=== PATIENT | female | born 1960 | race Caucasian/White ===

== ENCOUNTER 2016-12-26 09:01 | Inpatient (IN) | payer BC ==
[2016-12-26] MEDS ORDERED: methylPREDNISolone Sodium Succinate 125 MG/2 ML SDV IVPUSH ONE (09:41)
[2016-12-26] MEDS: Albuterol 0.083% 2.5 MG/3 ML Neb Soln NEB SCH ×5 (11:04→20:30)
--- NOTE | 2016-12-26 13:00 | PCM.HP ---
H&P History of Present Illness - General Date of Service: 12/26/16 Admit Problem/Dx: Admission Diagnosis/Problem Admission Diagnosis/Problem Dyspnea on exertion Source of Information: Patient History Limitations: Reports: No limitations - History of Present Illness Initial Comments - Free Text/Narative: Mrs. Metzger is a 56 yo female with history as below who presented to clinic for further evaluation of progressive worsening of cough and shortness of breath. She has been seen in clinic multiple times over the past 2 weeks for these symptoms. First, she was diagnosed with a viral illness and symptomatic cares were recommended. She was also given a prednisone burst. Given persistent symptoms for 10-14 days, she was started on Augmentin for sinusitis. However, her cough continued to progress and her shortness of breath also worsened. She was then transitioned to azithromycin and started on scheduled albuterol inhaler treatments. Despite this, she has continued to worsen. She has not had any fever or chills. Her sinus congestion had been improving but is worse again. 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 0 Pain Score (Numeric/FACES): 0 - Related Data Allergies/Adverse Reactions: Allergies Allergy/AdvReac Type Severity Reaction Status Date / Time aspirin Allergy Bronchospas Verified 08/17/14 11:22 ms acetaminophen AdvReac Hypotension Verified 08/17/14 11:22 [From Darvocet-N] meperidine HCl [From Demerol] AdvReac Hypotension Verified 08/17/14 11:22 propoxyphene napsylate AdvReac Hypotension Verified 08/17/14 11:22 [From Darvocet-N] Home Medications: Home Meds Albuterol [Proventil HFA] 2 puff IH Q4HR PRN 12/26/16 [History] Amitriptyline [Elavil] 100 - 150 mg PO BEDTIME PRN 12/26/16 [History] Aspirin [Halfprin] 81 mg PO DAILY 12/26/16 [History] Azithromycin [Zithromax] 500 mg PO ASDIRECTED 12/26/16 [History] Folic Acid 1 mg PO DAILY 12/26/16 [History] Gabapentin [Gabapentin] 100 mg PO QID 12/26/16 [History] Ibuprofen 400 - 800 mg PO Q6HR PRN 12/26/16 [History] LORazepam 0.5 mg PO DAILY PRN 12/26/16 [History] Lisinopril [Zestril] 40 mg PO DAILY 12/26/16 [History] Methotrexate Sodium [Methotrexate] 25 mg PO WEEKLY 12/26/16 [History] Metoprolol Succinate [Toprol XL] 25 mg PO DAILY 12/26/16 [History] Multivitamin [Multi-Vitamin Daily] 1 tab PO DAILY 12/26/16 [History] Omeprazole [Omeprazole] 40 mg PO BIDMEALS 12/26/16 [History] Pramipexole [Mirapex] 1 mg PO BEDTIME 12/26/16 [History] Prednisone [IJD: Prednisone] 10 mg PO DAILY 12/26/16 [History] Venlafaxine [Effexor XR] 150 mg PO DAILY 12/26/16 [History] atorvaSTATin [Lipitor] 10 mg PO BEDTIME 12/26/16 [History] Past Medical History HEENT History: Reports: Hard of hearing Other HEENT History: wears bilateral hearing aids Cardiovascular History: Reports: Pulmonary hypertension Other Cardiovascular History: coarctation of aorta,acute ischemic stroke Respiratory History: Reports: COPD, Sleep apnea, Other (see below) (pulmonary hypertension) Other Respiratory History: allergic rhinitis, Gastrointestinal History: Reports: Irritable bowel syndrome Genitourinary History: Reports: None Other OB/BYN History: post menopausal Musculoskeletal History: Reports: Arthritis, RA Neurological History: Reports: Migraines Other Neuro History: restless leg syndrome, Psychiatric History: Reports: Anxiety, Depression Endocrine/Metabolic History: Reports: None Hematologic History: Reports: None Immunologic History: Reports: None Oncologic (Cancer) History: Reports: None Dermatologic History: Reports: None - Infectious Disease History Infectious Disease History: Reports: None - Past Surgical History HEENT Surgical History: Reports: Other (see below) (tympanostomy) Cardiovascular Surgical History: Reports: Other (see below) (repair of coarctation of the aorta) GI Surgical History: Reports: Appendectomy, Cholecystectomy Female Surgical History: Reports: Hysterectomy Musculoskeletal Surgical History: Reports: Carpal tunnel, Other (see below) Other Musculoskeletal Surgeries/Procedures:: bunionectomy Social & Family History - Family History Cardiac: Reports: CAD Musculoskeletal: Reports: Arthritis Neurological: Reports: Dementia Oncologic: Reports: Breast, Colon - Tobacco Use Smoking Status *Q: Former Smoker - Alcohol Use Alcohol Use History: No Days Per Week of Alcohol Use: 3 Number of Drinks Per Day: 3 Total Drinks Per Week: 9 Alcohol Use in Last Twelve Months: No - Recreational Drug Use Recreational Drug Use: No - Living Situation & Occupation Living situation: Reports: , with significant other 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[employer]) H&P Review of Systems - Review of Systems: Review Of Systems: See Below General: Reports: no symptoms HEENT: Reports: rhinitis, sinus congestion Pulmonary: Reports: Shortness of Breath, Wheezing, Cough Cardiovascular: Reports: no symptoms Gastrointestinal: Reports: No symptoms Genitourinary: Reports: no symptoms Musculoskeletal: Reports: no symptoms Skin: Reports: no symptoms Psychiatric: Reports: no symptoms Exam - Exam Exam: See Below - Vital Signs Vital Signs: Last Vital Signs Temp 37.2 C 12/26/16 09:59 Pulse 69 12/26/16 09:59 Resp 18 12/26/16 09:59 BP 108/68 12/26/16 09:59 Pulse Ox 92 L 12/26/16 09:59 Weight: 71.214 kg - Exam General: alert, cooperative. No: mild distress, moderate distress, severe distress HEENT: Mucosa moist & pink, Posterior pharynx clear, Pupils equal, Pupils reactive, TMs clear Neck: supple, trachea midline. No: lymphadenopathy, thyromegaly Lungs: Wheezing Cardiovascular: regular rate, regular rhythm, normal S1, normal S2 Abdomen: normal bowel sounds, soft. No: organomegaly, distention, tenderness Extremities: normal inspection, normal pulses. No: edema Skin: warm, dry, intact Neurological: cranial nerves intact. No: focal deficit *Q Meaningful Use (ADM) - VTE *Q VTE Criteria *Q: VTE Anticoagulation Contraindications: Med/tx not indicated/need - Stroke *Q Stroke Criteria *Q: - AMI *Q AMI Criteria *Q: - Problem List (1) COPD exacerbation SNOMED Code(s): 663099362, 486875362 ICD Code: J44.1 - CHRONIC OBSTRUCTIVE PULMONARY DISEASE W (ACUTE) EXACERBATION Status: Acute Current Visit: Yes Problem Details: - Symptoms overall are still most consistent with this. - Suspect she had a viral illness vs. atypical pneumonia as the etiology. Possibly did have influenza but I will not test her for this as we would not treat her at this point. Her Well's score is 0, making PE quite unlikely, especially given her symptoms and lung exam. She has no evidence of CHF by x- ray or by physical exam. Her Hgb is normal. - Will treat with albuterol nebs q2 hours. - She will also get a dose of solu-medrol today and then be treated with prednisone 40 mg daily starting tomorrow. - If her symptoms are not improving with this treatment, we will consider getting a d-dimer. - Given her WBC and ESR are normal, I would not change her antibiotics at this point. - Oxygen PRN. (2) Atypical pneumonia SNOMED Code(s): 491078888 ICD Code: J18.9 - PNEUMONIA, UNSPECIFIED ORGANISM Status: Acute Current Visit: Yes Problem Details: - See above. - Continue azithromycin. (3) Hypertension SNOMED Code(s): 71631786 ICD Code: I10 - ESSENTIAL (PRIMARY) HYPERTENSION Status: Chronic Current Visit: Yes Problem Details: - Continue ASA, lisinopril, and metoprolol. Qualifiers: Hypertension type: essential hypertension Qualified Code(s): I10 - Essential (primary) hypertension (4) Rheumatoid arthritis SNOMED Code(s): 49116144 ICD Code: M06.9 - RHEUMATOID ARTHRITIS, UNSPECIFIED Status: Chronic Current Visit: Yes Problem Details: - Continue methotrexate, gabapentin, and PRN ibuprofen. - Will hold home prednisone as she will be getting higher doses as above. Qualifiers: Rheumatoid arthritis location: unspecified site Rheumatoid factor presence : without rheumatoid factor Qualified Code(s): M06.00 - Rheumatoid arthritis without rheumatoid factor, unspecified site (5) Anxiety SNOMED Code(s): 74232972 ICD Code: F41.9 - ANXIETY DISORDER, UNSPECIFIED Status: Chronic Current Visit: Yes Problem Details: - Continue lorazepam and effexor. (6) Insomnia SNOMED Code(s): 440152157 ICD Code: G47.00 - INSOMNIA, UNSPECIFIED Status: Chronic Current Visit: Yes Problem Details: - Continue lorazepam and amitriptyline. Qualifiers: Insomnia type: unspecified Qualified Code(s): G47.00 - Insomnia, unspecified (7) GERD (gastroesophageal reflux disease) SNOMED Code(s): 706438200 ICD Code: K21.9 - GASTRO-ESOPHAGEAL REFLUX DISEASE WITHOUT ESOPHAGITIS Status: Chronic Current Visit: Yes Problem Details: - Continue BID omeprazole. Qualifiers: Esophagitis presence: without esophagitis Qualified Code(s): K21.9 - Gastro -esophageal reflux disease without esophagitis (8) Restless leg syndrome SNOMED Code(s): 22274151 ICD Code: G25.81 - RESTLESS LEGS SYNDROME Status: Chronic Current Visit: Yes Problem Details: - Continue home medications. (9) Hyperlipidemia SNOMED Code(s): 80594100 ICD Code: E78.5 - HYPERLIPIDEMIA, UNSPECIFIED Status: Chronic Current Visit: Yes Problem Details: - Continue lipitor. Qualifiers: Hyperlipidemia type: unspecified Qualified Code(s): E78.5 - Hyperlipidemia , unspecified Problem List Initiated/Reviewed/Updated: Yes Orders Last 24hrs: Active Orders 24 hr Category Date Time Status Patient Status [ADT] Routine ADT 12/26/16 09:39 Active Notify Provider Vital Signs [RC] ASDIRECTED Care 12/26/16 12:44 Ordered Oxygen Therapy [RC] PRN Care 12/26/16 12:43 Ordered RT Aerosol Therapy [RC] 07 Care 12/26/16 09:41 Active Up ad [place] [RC] ASDIRECTED Care 12/26/16 12:42 Ordered VTE/DVT Education [RC] PER UNIT ROUTINE Care 12/26/16 12:43 Ordered Vital Signs [RC] Q4H Care 12/26/16 12:43 Ordered Regular Diet [DIET] Diet 12/26/16 Dinner Active Albuterol [Proventil Neb Soln] Med 12/26/16 10:00 Active 2.5 mg NEB Q2H Amitriptyline [Elavil] Med 12/26/16 20:00 Ordered 150 mg PO BEDTIME Aspirin [Halfprin] Med 12/27/16 08:00 Ordered 81 mg PO DAILY Azithromycin [Zithromax] Med 12/27/16 08:00 Ordered 250 mg PO DAILY Folic Acid Med 12/27/16 08:00 Ordered 1 mg PO DAILY Gabapentin [Neurontin] Med 12/26/16 16:00 Ordered 100 mg PO QID Ibuprofen [Motrin] Med 12/26/16 12:45 Ordered 400 mg PO Q6HR PRN LORazepam [Ativan] Med 12/26/16 20:00 Ordered 0.25 mg PO BEDTIME Lisinopril [Zestril] Med 12/27/16 08:00 Ordered 40 mg PO DAILY Methotrexate Med 12/26/16 12:45 Ordered 25 mg PO WEEKLY Metoprolol Succinate [Toprol XL] Med 12/27/16 08:00 Ordered 25 mg PO DAILY Multivitamin [Multi-Vitamin Daily] Med 12/27/16 08:00 Ordered 1 tab PO DAILY Omeprazole [Omeprazole] Med 12/26/16 18:00 Ordered 40 mg PO BIDMEALS Pramipexole [Mirapex] Med 12/26/16 20:00 Ordered 1 mg PO BEDTIME Venlafaxine [Effexor XR] Med 12/27/16 08:00 Ordered 150 mg PO DAILY atorvaSTATin [Lipitor] Med 12/26/16 20:00 Ordered 10 mg PO BEDTIME predniSONE Med 12/27/16 08:00 Ordered 40 mg PO WITHBREAKFAST Anticoagulation Contraindications VTE [AST] Per Unit Oth 12/26/16 12:42 Ordered Routine Resuscitation Status Routine Resus Stat 12/26/16 12:42 Ordered Medication Orders Albuterol (Proventil Neb Soln) 2.5 mg NEB Q2H [facility] Last Admin: 12/26/16 12:11 Dose: 2.5 mg Admin: 12/26/16 11:04 Dose: Not Given Amitriptyline HCl (Elavil) 150 mg PO BEDTIME [facility] Aspirin (Halfprin) 81 mg PO DAILY [facility] Atorvastatin Calcium (Lipitor) 10 mg PO BEDTIME [facility] Azithromycin (Zithromax) 250 mg PO DAILY [facility] Folic Acid (Folic Acid) 1 mg PO DAILY [facility] Gabapentin (Neurontin) 100 mg PO QID [facility] Ibuprofen (Motrin) 400 mg PO Q6HR PRN PRN Reason: Pain Lorazepam (Ativan) 0.25 mg PO BEDTIME [facility] Methotrexate (Methotrexate) 25 mg PO WEEKLY [facility] Metoprolol Succinate (Toprol Xl) 25 mg PO DAILY [facility] Non-Formulary Medication (Lisinopril [Zestril]) 40 mg PO DAILY [facility] Non-Formulary Medication (Multivitamin [Multi-Vitamin Daily]) 1 tab PO DAILY [facility] Non-Formulary Medication (Omeprazole [Omeprazole]) 40 mg PO BIDMEALS [facility] Non-Formulary Medication (Pramipexole [Mirapex]) 1 mg PO BEDTIME [facility] Prednisone (Prednisone) 40 mg PO WITHBREAKFAST CHRIS Venlafaxine HCl (Effexor Xr) 150 mg PO DAILY CHRIS Assessment/Plan Comment:: 56 yo female admitted with COPD exacerbation and atypical pneumonia refractory to outpatient management. See details under problem list above. She will be admitted under observation as I anticipate a short hospital stay. She will get steroids and frequent neb treatments. Continue azithromycin. Lovenox for VTE prophylaxis. She wishes to be full code.
[2016-12-26] MEDS: Omeprazole 20 MG Cap.CR PO SCH (15:59)
[2016-12-26] MEDS ORDERED: Gabapentin 100 MG Cap PO SCH (16:00)
[2016-12-26] MEDS: Sodium Chloride 0.9% 10 ML Syringe FLUSH SCH (20:27)
[2016-12-26] MEDS: atorvaSTATin 10 MG Tab PO SCH (20:30)
[2016-12-26] MEDS: Pramipexole 0.5 MG Tab PO SCH (20:30)
[2016-12-26] MEDS: LORazepam 0.5 MG Tab PO SCH (20:31)
[2016-12-26] MEDS: Gabapentin 400 MG Cap PO SCH (20:34)
[2016-12-26] MEDS: Amitriptyline 25 MG Tab PO SCH (22:51)
[2016-12-27] MEDS: Albuterol 0.083% 2.5 MG/3 ML Neb Soln NEB SCH ×6 (00:30→20:10)
[2016-12-27] MEDS: Ibuprofen 200 MG Tab PO PRN ×2 (05:19→14:13)
[2016-12-27] MEDS: Omeprazole 20 MG Cap.CR PO SCH ×2 (06:08→17:20)
[2016-12-27] MEDS ORDERED: Venlafaxine 150 MG Cap.ER PO SCH (08:00)
[2016-12-27] MEDS ORDERED: predniSONE 20 MG Tab PO SCH (08:00)
[2016-12-27] MEDS ORDERED: Lisinopril 20 MG Tab PO SCH (08:00)
[2016-12-27] MEDS: Sodium Chloride 0.9% 10 ML Syringe FLUSH SCH ×3 (08:00→20:29)
[2016-12-27] MEDS: Azithromycin 250 MG Tab PO SCH (08:14)
[2016-12-27] MEDS: Multivitamins with Iron/Calcium/Folic Acid/Minerals Tab PO SCH (08:14)
[2016-12-27] MEDS: Folic Acid 1 MG Tab PO SCH (08:15)
[2016-12-27] MEDS: Metoprolol Succinate 25 MG Tab.ER PO SCH (08:15)
[2016-12-27] MEDS: Aspirin 81 MG Tab.EC PO SCH (08:15)
[2016-12-27] MEDS: LORazepam 0.5 MG Tab PO PRN (10:55)
[2016-12-27 11:09] LABS: CHLORIDE,CL 98 mmol/L (98-107); SODIUM,NA 136 mmol/L (136-145)
--- NOTE | 2016-12-27 12:56 | PN ---
Progress Note for OPHELIA GIBSON Date: 12/27/2016 Room #: VM.204 SUBJECTIVE: This is hospital day #2 on a 56-year-old admitted through the clinic yesterday for bronchitis exacerbation with concern for possible COPD, given history of smoking. She had been in the clinic several times, been treated with Augmentin for sinusitis and treated with prednisone and albuterol inhalers, and her condition continued to worsen. She was given Solu-Medrol yesterday and 40 mg of prednisone this morning and normally she takes 10 at night for rheumatoid arthritis. She became quite anxious. She has a history of anxiety, but never a panic attack like this. She even had some chest discomfort that lasted about 30 to 45 minutes and was having a harder time breathing, by the time I saw her, it had resolved. She has no history of coronary artery disease, but had surgery for coarctation of the aorta 3 times including 2 in infancy. Otherwise, she feels the nebulizers do help. She has been afebrile. She has been on Zithromax. OBJECTIVE: Vital Signs: Her temperature 98.5, pulse 75, blood pressure 123/81, respiratory rate 18, and O2 of 99% on room air. General: She is in no acute distress. Heart: Regular rate and rhythm. S1, S2 with murmur. Respiratory: Lung sounds show good air entry, but both inspiratory and expiratory wheezing are still noted. Extremities: Warm and dry. No edema. Mental Status: She is alert and orientated x3. It should be noted that she did not wear her CPAP last night. She fell asleep without it. ASSESSMENT: 1. Probable chronic obstructive pulmonary disease exacerbation with atypical pneumonia. The patient will continue Zithromax. She will continue q.i.d. and p.r.n. nebs. 2. Essential hypertension. She will continue home medications for that. 3. Rheumatoid arthritis. She will continue home medications. Medications were all given this morning. We will adjust doses as she usually get that at nighttime. If she goes home today, we will give her further instructions, otherwise anticipate she may need another night of observation. 4. Anxiety. We will order p.r.n. Ativan during the day. She only had it ordered at night. 5. Gastroesophageal reflux disease seems to be under fair control. PLAN: The patient will continue observation cares. We will do q.i.d. and p.r.n. nebs. We will continue prednisone 40 mg daily, but will switch it to nighttime dosing. We will continue azithromycin. Anticipate discharge home in the next 24 hours with a nebulizer machine and follow up outpatient with her PCP. I should note that, I did lab work this morning after episode. Her white count mildly elevated at 13.2, probably due to the steroids, hemoglobin 13.2, platelets 260. Kidney function normal. Her troponin was negative. Blood sugar 155, probably some hyperglycemia from steroids. MKA: 12/27/2016 11:34:39 MODL: 12/27/2016 12:49:21 /[id number]
[2016-12-27] MEDS: LORazepam 0.5 MG Tab PO SCH (20:10)
[2016-12-27] MEDS: Gabapentin 400 MG Cap PO SCH (20:11)
[2016-12-27] MEDS: Amitriptyline 25 MG Tab PO SCH (20:11)
[2016-12-27] MEDS: Venlafaxine 150 MG Cap.ER PO SCH (20:11)
[2016-12-27] MEDS: atorvaSTATin 10 MG Tab PO SCH (20:12)
[2016-12-27] MEDS: Pramipexole 0.5 MG Tab PO SCH (20:13)
[2016-12-28] MEDS: Albuterol 0.083% 2.5 MG/3 ML Neb Soln NEB SCH ×7 (00:14→19:21)
[2016-12-28] MEDS: Omeprazole 20 MG Cap.CR PO SCH ×2 (06:16→16:12)
[2016-12-28] MEDS: Albuterol 0.083% 2.5 MG/3 ML Neb Soln NEB PRN (06:20)
[2016-12-28] MEDS: Folic Acid 1 MG Tab PO SCH (07:49)
[2016-12-28] MEDS: Azithromycin 250 MG Tab PO SCH (07:49)
[2016-12-28] MEDS: Ibuprofen 200 MG Tab PO PRN ×2 (07:50→19:39)
[2016-12-28] MEDS: Multivitamins with Iron/Calcium/Folic Acid/Minerals Tab PO SCH (07:51)
[2016-12-28] MEDS: Metoprolol Succinate 25 MG Tab.ER PO SCH (07:51)
[2016-12-28] MEDS: Aspirin 81 MG Tab.EC PO SCH (07:51)
[2016-12-28] MEDS: Sodium Chloride 0.9% 10 ML Syringe FLUSH SCH ×2 (07:52→19:39)
[2016-12-28] MEDS: LORazepam 0.5 MG Tab PO PRN (07:54)
[2016-12-28] MEDS ORDERED: methylPREDNISolone Sodium Succinate 40 MG/1 ML SDV IVPUSH ONE (09:01)
[2016-12-28 10:16] LABS: CHLORIDE,CL 101 mmol/L (98-107); SODIUM,NA 138 mmol/L (136-145)
--- NOTE | 2016-12-28 12:16 | PN ---
Progress Note for OPHELIA GIBSON Date: 12/28/2016 Room #: VM.204 SUBJECTIVE: This is a 56-year-old admitted on the for presumed COPD exacerbation given her history of smoking. The patient was on observation. She was doing better last evening. We are hopeful she could go home today, but this morning, ever since around 4:30, she has had some chest tightness. It lasted a good hour. She did get a neb, but she is still having trouble with cough and breathing. The patient is still quite wheezy. She did not take prednisone this morning, as she took it yesterday, and it caused almost a panic attack, so they did switch it to the evening when she takes all of her medication. She did not get all of her blood pressure pills last night, because she got them yesterday morning, and blood pressures had been running lower. She has been afebrile. Troponin was done and negative yesterday. EKG was done when she mentioned the chest tightness and does show some new T-wave inversion and mild depressions in the inferior and lateral leads, which is new compared to her EKG I reviewed from 2012. She does have a history of coarctation of the aorta. She had an angiogram back in 2014, but that was a thoracic angiogram. She has not had any cardiac angiogram. No recent history of any heart stressed testing, but did have one back in 2012. Otherwise, she is a former smoker, quit about 3 weeks ago. She does have hypertension and has been recently started on Toprol, which should be more cardioselective, but tells me her memory is short given a previous history of stroke. OBJECTIVE: Vital Signs: Her temperature is 98.4, pulse 73, blood pressure 137/48, respiratory rate 18, O2 of 97% on room air. General: She is in no acute distress. Heart: Regular rate and rhythm with murmur. Lungs: Sounds show diffuse inspiratory and expiratory wheezing. No crackles or rhonchi appreciated. Extremities: Warm and dry. No edema. Mental Status: Alert and orientated x3. She does not appear to be overly anxious. LABORATORY DATA: Lab work requested white count down to 11.5, hemoglobin 13.3, platelets 242. Sodium 138, potassium 3.9, chloride 101, bicarb 31, BUN 11, creatinine 1, glucose 145, troponin negative for a second time. Chest x-ray continues to show chronic changes on the left ribs, but no new pneumonia or infiltrates present. No pleural effusion. ASSESSMENT: 1. Probable chronic obstructive pulmonary disease exacerbation with an atypical pneumonia. She continues on Zithromax. I am going to give her a dose of Solu-Medrol 40 mg this morning. She can have her other 40 mg oral dose tonight and then continue on with that schedule of 40 at night. We will continue her on the q.i.d. nebs and p.r.n. as needed. We will continue azithromycin as repeat chest x-ray did not show any worsening. We will hold off on stopping Toprol now given her concern with EKG changes. 2. Chest tightness, probably due to respiratory, but again cannot rule out cardiac ischemia given smoking and hypertension history. At this point, we will place her on telemetry. We did not give her any nitro, but that could be a consideration. We would consider some outpatient heart workup and stress testing. She has had these symptoms now for 24 hours, and troponins remain negative. No need to repeat. 3. Rheumatoid arthritis. She is on prednisone at 10 mg, skilled nursing. 4. Anxiety. She has p.r.n. Ativan available now during the day. 5. Gastroesophageal reflux disease. 6. History of stroke. PLAN: The patient will be upgraded to acute care if she is not well enough to return home. She is on aspirin daily. She is also on Toprol. We will get her lisinopril ordered for tonight. We will continue her nebs. We will continue prednisone. We will give her a dose of Solu-Medrol this morning. Dr. Lawrence to assume care. MKA: 12/28/2016 11:44:43 MODL: 12/28/2016 12:09:27 /[id number]
[2016-12-28] MEDS ORDERED: Gabapentin 400 MG Cap PO SCH (16:00)
[2016-12-28] MEDS: Gabapentin 100 MG Cap PO SCH ×2 (16:12→19:40)
[2016-12-28] MEDS: atorvaSTATin 10 MG Tab PO SCH (19:40)
[2016-12-28] MEDS: Pramipexole 0.5 MG Tab PO SCH (19:40)
[2016-12-28] MEDS: Amitriptyline 25 MG Tab PO SCH (19:40)
[2016-12-28] MEDS: Venlafaxine 150 MG Cap.ER PO SCH (19:40)
[2016-12-28] MEDS: LORazepam 0.5 MG Tab PO SCH (19:40)
[2016-12-28] MEDS ORDERED: Lisinopril 20 MG Tab PO SCH (20:00)
[2016-12-28] MEDS ORDERED: predniSONE 20 MG Tab PO SCH (20:00)
[2016-12-29] MEDS: Albuterol 0.083% 2.5 MG/3 ML Neb Soln NEB SCH ×5 (00:06→14:59)
[2016-12-29] MEDS: Ibuprofen 200 MG Tab PO PRN ×2 (03:30→12:56)
[2016-12-29] MEDS: Omeprazole 20 MG Cap.CR PO SCH (06:45)
[2016-12-29] MEDS ORDERED: Enoxaparin 40 MG/0.4 ML Syringe SUBCUT SCH (08:00)
--- NOTE | 2016-12-29 08:13 | PCM.PN ---
- General Info Date of Service: 12/29/16 Subjective Update: Patient feels she is doing much better today. She did have a bit of a rough weekend but feels like she has turned the corner this morning. She is still coughing and wheezing but this is improved. Her breathing is improved and she has had no chest pain since yesterday morning. She never had any sharp chest pain but rather had some tightness that was evaluated by Dr. Ji. She denies any fever or chills. ROS otherwise negative as below. - Review of Systems General: Reports: No Symptoms HEENT: Reports: no symptoms Pulmonary: Reports: cough, wheezing Cardiovascular: Reports: No Symptoms Gastrointestinal: Reports: No symptoms Genitourinary: Reports: no symptoms Musculoskeletal: Reports: no symptoms Skin: Reports: no symptoms - Patient Data Vitals - most recent: Last Vital Signs Temp 36.7 C 12/29/16 05:59 Pulse 69 12/29/16 05:59 Resp 20 12/29/16 05:59 BP 121/77 12/29/16 05:59 Pulse Ox 97 12/29/16 07:24 Weight - most recent: 71.214 kg I&O - last 24 hours: Intake & Output 12/28/16 12/29/16 12/29/16 22:59 06:59 14:59 Intake Total 600 Output Total 400 Balance -400 600 Lab Results last 24 hrs: Laboratory Results - last 24 hr 12/28/16 12/28/16 12/29/16 Range/Units 09:35 09:35 06:22 WBC 11.5 H 11.0 H (4.0-10.0) x10^3/uL RBC 3.98 L 4.19 (4.00-5.50) x10^6/uL Hgb 13.3 13.7 (12.0-16.0) g/dL Hct 39.6 41.6 (33.0-47.0) % MCV 99.5 H 99.3 H (78.0-93.0) fL MCH 33.4 H 32.7 H (26.0-32.0) pg MCHC 33.6 32.9 (32.0-36.0) g/dL RDW Coeff of Tressa 15.3 H 15.1 H (10.0-15.0) % Plt Count 242 278 (130-400) x10^3/uL Add Manual Diff Yes Neutrophils % (Manual) 46 L (50-80) % Band Neutrophils % 5 (0-6) % Lymphocytes % (Manual) 44 (25-50) % Monocytes % (Manual) 2 (2-11) % Eosinophils % (Manual) 1 (0-4) % Metamyelocytes % 2 H (0) % Platelet Estimate Adequate Sodium 138 (136-145) mmol/L Potassium 3.9 (3.5-5.1) mmol/L Chloride 101 (98-107) mmol/L Carbon Dioxide 31 (21-32) mmol/L BUN 11 (7-18) mg/dL Creatinine 1.0 (0.55-1.02) mg/dL Est Cr Clr Drug Dosing 46.27 mL/min Estimated GFR (MDRD) 57 Glucose 145 H (74-106) mg/dL Calcium 8.8 (8.5-10.1) mg/dL Troponin I < 0.017 (<=0.056) ng/mL Med Orders - Current: Current Medications Albuterol (Proventil Neb Soln) 2.5 mg NEB Q2H PRN PRN Reason: Wheezing Last Admin: 12/28/16 06:20 Dose: 2.5 mg Albuterol (Proventil Neb Soln) 2.5 mg NEB Q4H [facility] Last Admin: 12/29/16 07:19 Dose: 2.5 mg Amitriptyline HCl (Elavil) 150 mg PO BEDTIME [facility] Last Admin: 12/28/16 19:40 Dose: 150 mg Aspirin (Halfprin) 81 mg PO DAILY [facility] Last Admin: 12/28/16 07:51 Dose: 81 mg Atorvastatin Calcium (Lipitor) 10 mg PO BEDTIME [facility] Last Admin: 12/28/16 19:40 Dose: 10 mg Azithromycin (Zithromax) 250 mg PO DAILY [facility] Last Admin: 12/28/16 07:49 Dose: 250 mg Enoxaparin Sodium (Lovenox) 40 mg SUBCUT DAILY [facility] Folic Acid (Folic Acid) 1 mg PO DAILY [facility] Last Admin: 12/28/16 07:49 Dose: 1 mg Gabapentin (Neurontin) 100 mg PO QID [facility] Last Admin: 12/28/16 19:40 Dose: 100 mg Ibuprofen (Motrin) 400 mg PO Q6HR PRN PRN Reason: Pain Last Admin: 12/29/16 03:30 Dose: 400 mg Lisinopril (Prinivil) 40 mg PO BEDTIME [facility] Last Admin: 12/28/16 20:03 Dose: 40 mg Lorazepam (Ativan) 0.25 mg PO BEDTIME [facility] Last Admin: 12/28/16 19:40 Dose: 0.25 mg Lorazepam (Ativan) 0.5 mg PO Q4H PRN PRN Reason: Anxiety Last Admin: 12/28/16 07:54 Dose: 0.5 mg Metoprolol Succinate (Toprol Xl) 25 mg PO DAILY [facility] Last Admin: 12/28/16 07:51 Dose: 25 mg Multivitamins/Minerals (Thera M Plus) 1 tab PO DAILY [facility] Last Admin: 12/28/16 07:51 Dose: 1 tab Omeprazole (Omeprazole) 40 mg PO BID@0700,1700 [facility] Last Admin: 12/29/16 06:45 Dose: 40 mg Pramipexole Dihydrochloride (Mirapex) 1 mg PO BEDTIME [facility] Last Admin: 12/28/16 19:40 Dose: 1 mg Prednisone (Prednisone) 40 mg PO QPM [facility] Last Admin: 12/28/16 20:03 Dose: 40 mg Sodium Chloride (Saline Flush) 10 ml FLUSH BID [facility] Last Admin: 12/28/16 19:39 Dose: 10 ml Venlafaxine HCl (Effexor Xr) 150 mg PO QPM [facility] Last Admin: 12/28/16 19:40 Dose: 150 mg Discontinued Medications Albuterol (Proventil Neb Soln) 2.5 mg NEB Q2H [facility] Last Admin: 12/26/16 14:12 Dose: 2.5 mg Gabapentin (Neurontin) 100 mg PO QID [facility] Last Admin: 12/26/16 14:59 Dose: 100 mg Gabapentin (Neurontin) 400 mg PO BEDTIME [facility] Last Admin: 12/27/16 20:11 Dose: 400 mg Lisinopril (Prinivil) 40 mg PO DAILY [facility] Last Admin: 12/27/16 08:14 Dose: 40 mg Methotrexate (Methotrexate) 25 mg PO Sa [facility] Methylprednisolone Sodium Succinate (Solu-Medrol) 125 mg IVPUSH ONETIME ONE Stop: 12/26/16 09:42 Last Admin: 12/26/16 11:06 Dose: 125 mg Methylprednisolone Sodium Succinate (Solu-Medrol) 40 mg IVPUSH ONETIME ONE Stop: 12/28/16 09:02 Last Admin: 12/28/16 10:11 Dose: 40 mg Prednisone (Prednisone) 40 mg PO WITHBREAKFAST [facility] Last Admin: 12/27/16 08:14 Dose: 40 mg Venlafaxine HCl (Effexor Xr) 150 mg PO DAILY [facility] - Exam General: alert, cooperative, no acute distress HEENT: Pupils equal, Pupils reactive, Mucous membr. moist/pink Neck: supple, no thyromegaly. No: lymphadenopathy Lungs: Normal respiratory effort, Wheezing, Other (good air movement this am) Cardiovascular: Regular Rate, Regular Rhythm, Murmurs (systolic murmur at the left upper sternal border radiating to the carotids) Abdomen: bowel sounds present, soft, no tenderness, no distension Extremities: no edema, normal pulses Skin: warm, dry, intact - Problem List & Annotations (1) COPD exacerbation SNOMED Code(s): 092583544, 842432844 Code(s): J44.1 - CHRONIC OBSTRUCTIVE PULMONARY DISEASE W (ACUTE) EXACERBATION Status: Acute Current Visit: Yes Annotation/Comment:: - Symptoms overall are still most consistent with this. - Suspect she had a viral illness vs. atypical pneumonia as the etiology. Possibly did have influenza but I did not test her for this as she was past the point where we would treat her. - She has no evidence of CHF by x-ray or by physical exam. However, her murmur is quite prominent today. I will get a BNP this morning just to be sure she does not have any CHF issues. - She is on albuterol nebs scheduled q4 hours, with q2 hours PRN. - She got a dose of solu-medrol on admission and again over the weekend. She is on a prednisone burst now and will likely need to be tapered off of this. - She will get her last dose of azithromycin today. - Oxygen PRN. (2) Atypical pneumonia SNOMED Code(s): 670579420 Code(s): J18.9 - PNEUMONIA, UNSPECIFIED ORGANISM Status: Acute Current Visit: Yes Annotation/Comment:: - See above. - Azithromycin course will be completed today. (3) Heart murmur SNOMED Code(s): 64704304 Code(s): R01.1 - CARDIAC MURMUR, UNSPECIFIED Status: Chronic Current Visit: Yes Annotation/Comment:: - Patient states this is chronic for her but does fluctuate in intensity explaining why I have not heard it previously when she was weezing more prominently. - Will get a BNP today to ensure no evidence of CHF from a valvular cause. - She had an Echo in 07/2016 with follow-up with cardiology at that time. No changes were recommended. If her BNP is normal and this remains to be a primarily lung issue, likely does not require follow-up with cardiology but may benefit from pulmonology consultation. (4) Hypertension SNOMED Code(s): 79357411 Code(s): I10 - ESSENTIAL (PRIMARY) HYPERTENSION Status: Chronic Current Visit: Yes Qualifiers: Hypertension type: essential hypertension Qualified Code(s): I10 - Essential (primary) hypertension Annotation/Comment:: - Continue ASA, lisinopril, and metoprolol. (5) Rheumatoid arthritis SNOMED Code(s): 24654307 Code(s): M06.9 - RHEUMATOID ARTHRITIS, UNSPECIFIED Status: Chronic Current Visit: Yes Qualifiers: Rheumatoid arthritis location: unspecified site Rheumatoid factor presence : without rheumatoid factor Qualified Code(s): M06.00 - Rheumatoid arthritis without rheumatoid factor, unspecified site Annotation/Comment:: - Continue gabapentin and PRN ibuprofen. - Methotrexate held per rheumatology. Will hold home prednisone as she will be getting higher doses as above. (6) Anxiety SNOMED Code(s): 61750504 Code(s): F41.9 - ANXIETY DISORDER, UNSPECIFIED Status: Chronic Current Visit: Yes Annotation/Comment:: - Continue lorazepam and effexor. (7) Insomnia SNOMED Code(s): 306858277 Code(s): G47.00 - INSOMNIA, UNSPECIFIED Status: Chronic Current Visit: Yes Qualifiers: Insomnia type: unspecified Qualified Code(s): G47.00 - Insomnia, unspecified Annotation/Comment:: - Continue lorazepam and amitriptyline. (8) GERD (gastroesophageal reflux disease) SNOMED Code(s): 327615764 Code(s): K21.9 - GASTRO-ESOPHAGEAL REFLUX DISEASE WITHOUT ESOPHAGITIS Status: Chronic Current Visit: Yes Qualifiers: Esophagitis presence: without esophagitis Qualified Code(s): K21.9 - Gastro -esophageal reflux disease without esophagitis Annotation/Comment:: - Continue BID omeprazole. (9) Restless leg syndrome SNOMED Code(s): 17997687 Code(s): G25.81 - RESTLESS LEGS SYNDROME Status: Chronic Current Visit: Yes Annotation/Comment:: - Continue home medications. (10) Hyperlipidemia SNOMED Code(s): 24629630 Code(s): E78.5 - HYPERLIPIDEMIA, UNSPECIFIED Status: Chronic Current Visit: Yes Qualifiers: Hyperlipidemia type: unspecified Qualified Code(s): E78.5 - Hyperlipidemia , unspecified Annotation/Comment:: - Continue lipitor. - Problem List Review Problem List Initiated/Reviewed/Updated: Yes - My Orders Last 24 Hours: My Active Orders 12/28/16 16:00 Gabapentin [Neurontin] 100 mg PO QID 12/28/16 20:00 predniSONE 40 mg PO QPM 12/29/16 08:00 Enoxaparin [Lovenox] 40 mg SUBCUT DAILY 12/29/16 08:05 Cardiac Monitoring Discontinue [RC] Click To Edit B-TYPE NATRIURETIC PEPTIDE,BNP [CHEM] Routine 01/01/17 07:00 CBC W/O DIFF,HEMOGRAM [HEME] Q3D 01/04/17 07:00 CBC W/O DIFF,HEMOGRAM [HEME] Q3D 01/07/17 07:00 CBC W/O DIFF,HEMOGRAM [HEME] Q3D 01/10/17 07:00 CBC W/O DIFF,HEMOGRAM [HEME] Q3D 01/13/17 07:00 CBC W/O DIFF,HEMOGRAM [HEME] Q3D 01/16/17 07:00 CBC W/O DIFF,HEMOGRAM [HEME] Q3D - Assessment Assessment:: 56 yo female admitted with a presumed COPD exacerbation. Did not improve much over the weekend but is doing better today. - Plan Plan:: See details under problem list above. She was transitioned to acute over the weekend due to experience of chest pain and lack of improvement in symptoms. She will remain on steroids and frequent neb treatments. Azithromycin course will be completed today. She had not been on medication based VTE prophylaxis given she was under observation and was anticipated to have a short hospital stay; now that she has been here longer, will go ahead and start Lovenox for VTE prophylaxis. She wishes to be full code. Since she is doing well this morning, she may be able to be dismissed this afternoon. We will monitor her today and I will check on her this afternoon to make the final decision.
[2016-12-29] MEDS: Metoprolol Succinate 25 MG Tab.ER PO SCH (08:15)
[2016-12-29] MEDS: Azithromycin 250 MG Tab PO SCH (08:15)
[2016-12-29] MEDS: Folic Acid 1 MG Tab PO SCH (08:16)
[2016-12-29] MEDS: Gabapentin 100 MG Cap PO SCH ×2 (08:16→12:15)
[2016-12-29] MEDS: Multivitamins with Iron/Calcium/Folic Acid/Minerals Tab PO SCH (08:16)
[2016-12-29] MEDS: Aspirin 81 MG Tab.EC PO SCH (08:16)
[2016-12-29] MEDS: Sodium Chloride 0.9% 10 ML Syringe FLUSH SCH (08:18)
[2016-12-29] MEDS: Albuterol 0.083% 2.5 MG/3 ML Neb Soln NEB PRN (13:05)
--- NOTE | 2016-12-29 13:47 | PCM.DCSUM1 ---
Discharge Summary - Hospital Course Brief History: Mrs. Metzger is a 56 yo female who presented to clinic for follow -up regarding cough, wheezing, and shortness of breath. She had been seen for multiple visits over the course of the preceding couple of weeks for similar symptoms. She had been trialed on a prednisone burst, antibiotics, and an albuterol inhaler without improvement in symptoms. In fact, her symptoms had progressively worsened. Therefore, she was admitted to the hospital for further evaluation and management. - Discharge Data Discharge Date: 12/29/16 Discharge Disposition: Home, Self-Care 01 Condition: Good - Discharge Diagnosis/Problem(s) (1) COPD exacerbation SNOMED Code(s): 239786645, 039375053 ICD Code: J44.1 - CHRONIC OBSTRUCTIVE PULMONARY DISEASE W (ACUTE) EXACERBATION Status: Acute Current Visit: Yes Problem Details: Symptoms overall are most consistent with either COPD or asthma; based on her high steroid and frequent neb need, asthma would actually be more likely. Presume she had a viral illness vs. atypical pneumonia as the etiology. She has no evidence of heart failure by x-ray or by physical exam and a BNP this morning was negative, effectively ruling this out. She has done well throughout the day today and I think she is appropriate for dismissal home with close outpatient follow-up. She has completed her azithromycin course but will likely require a prolonged prednisone taper; she has purchased a nebulizer machine. She will get PFTs as an outpatient in 6 weeks. (2) Atypical pneumonia SNOMED Code(s): 707344757 ICD Code: J18.9 - PNEUMONIA, UNSPECIFIED ORGANISM Status: Acute Current Visit: Yes Problem Details: See above. (3) Heart murmur SNOMED Code(s): 91576193 ICD Code: R01.1 - CARDIAC MURMUR, UNSPECIFIED Status: Chronic Current Visit: Yes Problem Details: Patient states this is chronic for her based on her history of coarctation of the aorta but does fluctuate in intensity explaining why I have not heard it previously when she was weezing more prominently. BNP normal today. Her cardiology follow-up is up to date. (4) Hypertension SNOMED Code(s): 28732959 ICD Code: I10 - ESSENTIAL (PRIMARY) HYPERTENSION Status: Chronic Current Visit: Yes Problem Details: ASA, lisinopril, and metoprolol were continued. Qualifiers: Hypertension type: essential hypertension Qualified Code(s): I10 - Essential (primary) hypertension (5) Rheumatoid arthritis SNOMED Code(s): 89044467 ICD Code: M06.9 - RHEUMATOID ARTHRITIS, UNSPECIFIED Status: Chronic Current Visit: Yes Problem Details: Gabapentin and PRN ibuprofen continued. Methotrexate held per rheumatology. Will hold home prednisone as she will be getting higher doses as above. Qualifiers: Rheumatoid arthritis location: unspecified site Rheumatoid factor presence : without rheumatoid factor Qualified Code(s): M06.00 - Rheumatoid arthritis without rheumatoid factor, unspecified site (6) Anxiety SNOMED Code(s): 38534795 ICD Code: F41.9 - ANXIETY DISORDER, UNSPECIFIED Status: Chronic Current Visit: Yes Problem Details: Lorazepam and effexor continued. (7) Insomnia SNOMED Code(s): 909694574 ICD Code: G47.00 - INSOMNIA, UNSPECIFIED Status: Chronic Current Visit: Yes Problem Details: Lorazepam and amitriptyline continued. Qualifiers: Insomnia type: unspecified Qualified Code(s): G47.00 - Insomnia, unspecified (8) GERD (gastroesophageal reflux disease) SNOMED Code(s): 408049106 ICD Code: K21.9 - GASTRO-ESOPHAGEAL REFLUX DISEASE WITHOUT ESOPHAGITIS Status: Chronic Current Visit: Yes Problem Details: Omeprazole continued. Qualifiers: Esophagitis presence: without esophagitis Qualified Code(s): K21.9 - Gastro -esophageal reflux disease without esophagitis (9) Restless leg syndrome SNOMED Code(s): 15687335 ICD Code: G25.81 - RESTLESS LEGS SYNDROME Status: Chronic Current Visit: Yes Problem Details: Home medications continued. (10) Hyperlipidemia SNOMED Code(s): 42256193 ICD Code: E78.5 - HYPERLIPIDEMIA, UNSPECIFIED Status: Chronic Current Visit: Yes Problem Details: Lipitor continued. Qualifiers: Hyperlipidemia type: unspecified Qualified Code(s): E78.5 - Hyperlipidemia , unspecified - Patient Summary/Data Operative Procedure(s) Performed: none Complications: Patient did have chest tightness over the weekend that was worked up. Her ECG showed some abnormalities but her troponins were negative. Will consider outpatient stress testing. Consults: none Labs Pending at D/C: none Recommended Follow-up Testing/Procedures: PFTs in 6 weeks Planned Operative Procedure(s) after DC: none Hospital Course: Patient was treated with IV and then PO steroids. Her azithromycin was also continued. She did have a couple episodes of chest tightness while she was here but these resolved spontaneously. Her EKG was changed from previous but her troponins were negative. Although it took a couple of days of routine cares for an asthma/COPD exacerbation, her symptoms did finally improve. She will be discharged on oral steroids as well as nebulizer treatments. She has completed her antibiotic course. - Patient Instructions Diet: Usual Diet as Tolerated Activity: As Tolerated Driving: May Drive Today Showering/Bathing: May Shower Notify Provider of: Fever, Increased Pain, Swelling and Redness, Drainage, Nausea and/or Vomiting - Discharge Plan Prescriptions/Med Rec: Prednisone [IJD: predniSONE] 40 mg PO QPM #20 tablet Home Medications: Home Meds Amitriptyline [Elavil] 100 - 150 mg PO BEDTIME PRN 12/26/16 [History] Aspirin [Halfprin] 81 mg PO DAILY 12/26/16 [History] Folic Acid 1 mg PO DAILY 12/26/16 [History] Gabapentin 100 mg PO QID 12/26/16 [History] Ibuprofen 400 - 800 mg PO Q6HR PRN 12/26/16 [History] Lisinopril [Zestril] 40 mg PO DAILY 12/26/16 [History] Methotrexate Sodium [Methotrexate] 25 mg PO WEEKLY 12/26/16 [History] Metoprolol Succinate [Toprol XL] 25 mg PO DAILY 12/26/16 [History] Multivitamin [Multi-Vitamin Daily] 1 tab PO DAILY 12/26/16 [History] Omeprazole 40 mg PO BIDMEALS 12/26/16 [History] Pramipexole [Mirapex] 1 mg PO BEDTIME 12/26/16 [History] Venlafaxine [Effexor XR] 150 mg PO DAILY 12/26/16 [History] atorvaSTATin [Lipitor] 10 mg PO BEDTIME 12/26/16 [History] Albuterol [IJD: Albuterol] 2.5 mg NEB Q4H nebule 12/29/16 [Rx] LORazepam 0.25 mg PO DAILY PRN #0 12/29/16 [Rx] LORazepam [Ativan] 0.25 mg PO BEDTIME tablet 12/29/16 [Rx] Prednisone [IJD: predniSONE] 40 mg PO QPM #20 tablet 12/29/16 [Rx] - Discharge Summary/Plan Comment DC Time >30 min.: No - General Info Date of Service: 12/29/16 Subjective Update: Continues to do well throughout the day today. Otherwise, see today's progress note. - Patient Data Vitals - Most Recent: Last Vital Signs Temp 36.6 C 12/29/16 10:00 Pulse 86 12/29/16 10:00 Resp 18 12/29/16 10:00 BP 115/73 12/29/16 10:00 Pulse Ox 95 12/29/16 10:00 Weight - Most Recent: 71.214 kg I&O - Last 24 hours: Intake & Output 12/28/16 12/29/16 12/29/16 22:59 06:59 14:59 Intake Total 600 720 Output Total 400 Balance -400 600 720 Lab Results - Last 24 hrs: Laboratory Results - last 24 hr 12/29/16 12/29/16 Range/Units 06:22 06:22 WBC 11.0 H (4.0-10.0) x10^3/uL RBC 4.19 (4.00-5.50) x10^6/uL Hgb 13.7 (12.0-16.0) g/dL Hct 41.6 (33.0-47.0) % MCV 99.3 H (78.0-93.0) fL MCH 32.7 H (26.0-32.0) pg MCHC 32.9 (32.0-36.0) g/dL RDW Coeff of Tressa 15.1 H (10.0-15.0) % Plt Count 278 (130-400) x10^3/uL B-Natriuretic Peptide 117 (<=125) pg/mL Med Orders - Current: Current Medications Albuterol (Proventil Neb Soln) 2.5 mg NEB Q2H PRN PRN Reason: Wheezing Last Admin: 12/29/16 13:05 Dose: 2.5 mg Albuterol (Proventil Neb Soln) 2.5 mg NEB Q4H [facility] Last Admin: 12/29/16 11:06 Dose: 2.5 mg Amitriptyline HCl (Elavil) 150 mg PO BEDTIME [facility] Last Admin: 12/28/16 19:40 Dose: 150 mg Aspirin (Halfprin) 81 mg PO DAILY [facility] Last Admin: 12/29/16 08:16 Dose: 81 mg Atorvastatin Calcium (Lipitor) 10 mg PO BEDTIME [facility] Last Admin: 12/28/16 19:40 Dose: 10 mg Azithromycin (Zithromax) 250 mg PO DAILY [facility] Last Admin: 12/29/16 08:15 Dose: 250 mg Enoxaparin Sodium (Lovenox) 40 mg SUBCUT DAILY [facility] Last Admin: 12/29/16 08:16 Dose: 40 mg Folic Acid (Folic Acid) 1 mg PO DAILY [facility] Last Admin: 12/29/16 08:16 Dose: 1 mg Gabapentin (Neurontin) 100 mg PO QID [facility] Last Admin: 12/29/16 12:15 Dose: 100 mg Ibuprofen (Motrin) 400 mg PO Q6HR PRN PRN Reason: Pain Last Admin: 12/29/16 12:56 Dose: 400 mg Lisinopril (Prinivil) 40 mg PO BEDTIME [facility] Last Admin: 12/28/16 20:03 Dose: 40 mg Lorazepam (Ativan) 0.25 mg PO BEDTIME [facility] Last Admin: 12/28/16 19:40 Dose: 0.25 mg Lorazepam (Ativan) 0.5 mg PO Q4H PRN PRN Reason: Anxiety Last Admin: 12/28/16 07:54 Dose: 0.5 mg Metoprolol Succinate (Toprol Xl) 25 mg PO DAILY [facility] Last Admin: 12/29/16 08:15 Dose: 25 mg Multivitamins/Minerals (Thera M Plus) 1 tab PO DAILY [facility] Last Admin: 12/29/16 08:16 Dose: 1 tab Omeprazole (Omeprazole) 40 mg PO BID@0700,1700 [facility] Last Admin: 12/29/16 06:45 Dose: 40 mg Pramipexole Dihydrochloride (Mirapex) 1 mg PO BEDTIME [facility] Last Admin: 12/28/16 19:40 Dose: 1 mg Prednisone (Prednisone) 40 mg PO QPM [facility] Last Admin: 12/28/16 20:03 Dose: 40 mg Sodium Chloride (Saline Flush) 10 ml FLUSH BID [facility] Last Admin: 12/29/16 08:18 Dose: 10 ml Venlafaxine HCl (Effexor Xr) 150 mg PO QPM [facility] Last Admin: 12/28/16 19:40 Dose: 150 mg Discontinued Medications Albuterol (Proventil Neb Soln) 2.5 mg NEB Q2H [facility] Last Admin: 12/26/16 14:12 Dose: 2.5 mg Gabapentin (Neurontin) 100 mg PO QID [facility] Last Admin: 12/26/16 14:59 Dose: 100 mg Gabapentin (Neurontin) 400 mg PO BEDTIME [facility] Last Admin: 12/27/16 20:11 Dose: 400 mg Lisinopril (Prinivil) 40 mg PO DAILY [facility] Last Admin: 12/27/16 08:14 Dose: 40 mg Methotrexate (Methotrexate) 25 mg PO Sa [facility] Methylprednisolone Sodium Succinate (Solu-Medrol) 125 mg IVPUSH ONETIME ONE Stop: 12/26/16 09:42 Last Admin: 12/26/16 11:06 Dose: 125 mg Methylprednisolone Sodium Succinate (Solu-Medrol) 40 mg IVPUSH ONETIME ONE Stop: 12/28/16 09:02 Last Admin: 12/28/16 10:11 Dose: 40 mg Prednisone (Prednisone) 40 mg PO WITHBREAKFAST [facility] Last Admin: 12/27/16 08:14 Dose: 40 mg Venlafaxine HCl (Effexor Xr) 150 mg PO DAILY [facility] *Q Meaningful Use (DIS) - VTE *Q VTE Criteria *Q: VTE Anticoagulation Contraindications: Med/tx not indicated/need - Stroke *Q Stroke Criteria *Q: - AMI *Q AMI Criteria *Q:
[2016-12-29] MEDS: LORazepam 0.5 MG Tab PO PRN (13:50)
[2016-12-29 15:17] VITALS: BP 150/68
== END 2016-12-29 15:40 | disposition home or self-care (01) | DRG 140 ==
LOC: VM.MS 09:01 → OBSVTOIN 12-28 09:01
PROVIDERS: ADMIT Internal Medicine; ATTEND Family Medicine
DX: J44.0 Chronic obstructive pulmonary disease with (acute) lower respiratory infection (principal); J18.9 Pneumonia, unspecified organism; J44.1 Chronic obstructive pulmonary disease with (acute) exacerbation; R01.1 Cardiac murmur, unspecified; I10 Essential (primary) hypertension; M06.9 Rheumatoid arthritis, unspecified; F41.9 Anxiety disorder, unspecified; G47.00 Insomnia, unspecified; K21.9 Gastro-esophageal reflux disease without esophagitis; G25.81 Restless legs syndrome; E78.5 Hyperlipidemia, unspecified; Z86.73 Personal history of transient ischemic attack (TIA), and cerebral infarction without residual deficits
CPT/HCPCS: 36415; 71020; 80048; 83880; 84484; 85025; 85027; 93005; 94640; 94640-76; 94760; 96374; A9270-GY; G0378; G0379; J1650; J2920; J2930; J7050; J7620-GY

== ENCOUNTER 2017-09-29 09:28 | Day surgery (SDC) | payer BC ==
[~2017-09-29 09:28] MED LIST: Lactated Ringers 1,000 ML IV SCH
[2017-09-29] MEDS ORDERED: Albuterol/Ipratropium 3.0-0.5 MG/3 ML Neb Soln NEB ONE (10:38)
[2017-09-29] MEDS ORDERED: Citric Acid/Sodium Citrate Solution 30 ML Cup PO ONE (10:39)
[2017-09-29] MEDS ORDERED: Propofol 200 MG/20 ML SDV ONE ×2 (10:46→11:41)
[2017-09-29] MEDS ORDERED: Albuterol 0.083% 2.5 MG/3 ML Neb Soln NEB ONE (10:51)
[2017-09-29] MEDS ORDERED: Phenylephrine 1% 10 MG/ML SDV ONE (12:02)
[2017-09-29] MEDS ORDERED: Phenylephrine 1% 10 MG/ML SDV IV SCH (12:45)
[2017-09-29 13:57] VITALS: BP 84/87
--- NOTE | 2017-09-30 07:55 | OR ---
PREOPERATIVE DIAGNOSIS: Family history of colon cancer and personal history of polyps. POSTOPERATIVE DIAGNOSIS: Essentially normal colonoscopic exam. PROCEDURE PROPOSED AND PROCEDURE DONE: Total flexible colonoscopy. INDICATION: This is a 57-year-old female who comes in for colonic surveillance due to a family history of a parent with colon cancer, and she has also had some polyps herself. TECHNIQUE: The patient was brought to the endoscopy suite and placed in left lateral decubitus position. She was sedated per BUDGET REPORT CLERK with propofol. The flexible video colonoscope was then passed transanally and, under visualization, advanced to the cecum. Examination revealed normal ascending, transverse, descending, sigmoid, and rectal colons. There were no evidence of any polyps, diverticulosis, colitis, or any other significant abnormalities. Scope was then withdrawn. The patient tolerated the procedure well. FINAL IMPRESSION: 1. Essentially normal colonoscopic exam. 2. Family history of colon cancer. 3. Personal history of polyps. PLAN: I feel that she should continue with colonic evaluation every 5 years hereafter. SCM: 09/29/2017 11:54:30 MODL: 09/29/2017 13:33:43 /[id number]
== END 2017-09-29 14:07 | disposition home or self-care (01) ==
LOC: VM.SDS 09:28
PROVIDERS: ATTEND Surgery
DX: Z12.11 Encounter for screening for malignant neoplasm of colon (principal); I27.20 Pulmonary hypertension, unspecified; F33.40 Major depressive disorder, recurrent, in remission, unspecified; E78.2 Mixed hyperlipidemia; F41.1 Generalized anxiety disorder; G47.33 Obstructive sleep apnea (adult) (pediatric); Z79.82 Long term (current) use of aspirin; Z79.899 Other long term (current) drug therapy; Z80.0 Family history of malignant neoplasm of digestive organs; Z86.010 Personal history of colon polyps; Z88.8 Allergy status to other drugs, medicaments and biological substances; Z91.011 Allergy to milk products; Z99.89 Dependence on other enabling machines and devices; Z87.891 Personal history of nicotine dependence
CPT/HCPCS: 45378; 93005; A9270; J2370; J2704; J7120; J7620

== ENCOUNTER 2017-12-12 06:58 | Emergency (ER) | payer BC ==
[2017-12-12] MEDS ORDERED: Sodium Chloride 0.9% 10 ML Syringe FLUSH PRN (07:18)
[2017-12-12] MEDS ORDERED: Morphine 4 MG/ML Syringe IVPUSH ONE (07:19)
[2017-12-12 08:15] VITALS: BP 132/72
--- NOTE | 2017-12-13 06:54 | EDM.PDOC ---
ED HPI GENERAL MEDICAL PROBLEM - General Chief Complaint: Chest Pain Stated Complaint: chest pain Time Seen by Provider: 12/12/17 07:00 Source of Information: Reports: Patient History Limitations: Reports: No Limitations - History of Present Illness INITIAL COMMENTS - FREE TEXT/NARRATIVE: Pt. presents to ER with complaints of anterior chest pain. Pt. states that the onset of the discomfort was acute in nature. Denies any radiation into the jaw arms, neck or back. No weakness, fever, or chills. Pt. states thats she has RA and is prone to discomfort like this. Onset Date: 12/12/17 Onset Time: 05:00 Location: Reports: Chest Quality: Reports: Ache, Burning Improves with: Reports: Rest Worsens with: Reports: Movement mid chest Pain Score (Numeric/FACES): 6 - Related Data Allergies Allergy/AdvReac Type Severity Reaction Status Date / Time aspirin Allergy Bronchospas Verified 12/12/17 07:38 ms Dairy Products Allergy Nausea Verified 12/12/17 07:38 acetaminophen AdvReac Hypotension Verified 12/12/17 07:38 [From Darvocet-N] meperidine HCl [From Demerol] AdvReac Hypotension Verified 12/12/17 07:38 propoxyphene napsylate AdvReac Hypotension Verified 12/12/17 07:38 [From Darvocet-N] Home Meds: Home Meds Aspirin [Halfprin] 81 mg PO DAILY 12/26/16 [History] Ibuprofen 400 - 800 mg PO Q6HR PRN 12/26/16 [History] Lisinopril [Zestril] 40 mg PO DAILY 12/26/16 [History] Metoprolol Succinate [Toprol XL] 25 mg PO DAILY 12/26/16 [History] Multivitamin [Multi-Vitamin Daily] 1 tab PO DAILY 12/26/16 [History] Pramipexole [Mirapex] 0.5 - 1 mg PO BEDTIME 12/26/16 [History] Venlafaxine [Effexor XR] 150 mg PO DAILY 12/26/16 [History] atorvaSTATin [Lipitor] 20 mg PO BEDTIME 12/26/16 [History] Albuterol [IJD: Albuterol] 2.5 mg NEB QID 12/12/17 [History] Amitriptyline [Elavil] 100 - 150 mg PO BEDTIME PRN 12/12/17 [History] Furosemide [Lasix] 20 mg PO DAILY 12/12/17 [History] LORazepam [Ativan] 0.25 - 0.5 mg PO BEDTIME 12/12/17 [History] predniSONE [Prednisone] 5 mg PO ASDIRECTED 12/12/17 [History] Past Medical History HEENT History: Reports: Allergic Rhinitis Other HEENT History: wears bilateral hearing aids Cardiovascular History: Reports: Heart Failure Other Cardiovascular History: coarctation of aorta,acute ischemic stroke Respiratory History: Reports: Sleep Apnea Other Respiratory History: allergic rhinitis,. RESTRICTIVE AIRWAY DISEASE Gastrointestinal History: Reports: Irritable Bowel Syndrome, Other (See Below) Other Gastrointestinal History: FM HX COLON CA Genitourinary History: Reports: None Other OB/BYN History: post menopausal Musculoskeletal History: Reports: Arthritis, RA Other Musculoskeletal History: BUNION. RLS. BURSITIS LEFT HIP. BILAT WRIST PAIN. POLYARTHRALGIA Neurological History: Reports: CVA, Migraines, Seizure Other Neuro History: restless leg syndrome,. H/O HEMIPARESIS. SONDYLOSIS CERVIAL REGOIN Psychiatric History: Reports: Anxiety, Depression Endocrine/Metabolic History: Reports: None, Osteopenia Hematologic History: Reports: None Immunologic History: Reports: None Oncologic (Cancer) History: Reports: None Dermatologic History: Reports: None - Infectious Disease History Infectious Disease History: Reports: None - Past Surgical History HEENT Surgical History: Reports: Other (See Below) Other HEENT Surgeries/Procedures: TYMPANOPLASTY Cardiovascular Surgical History: Reports: Other (See Below) Other Cardiovascular Surgeries/Procedures: BALLOON ANGIAPLASTY W REPAIR OF AORTIC VALVE GI Surgical History: Reports: Appendectomy, Cholecystectomy Female Surgical History: Reports: Hysterectomy Musculoskeletal Surgical History: Reports: Carpal Tunnel, Other (See Below) Other Musculoskeletal Surgeries/Procedures:: bunionectomy Social & Family History - Family History Cardiac: Reports: CAD Musculoskeletal: Reports: Arthritis Neurological: Reports: Dementia Oncologic: Reports: Breast, Colon - Tobacco Use Smoking Status *Q: Former Smoker Used Tobacco, but Quit: Yes Month/Year Tobacco Last Used: 2015 - Alcohol Use Days Per Week of Alcohol Use: 1 Number of Drinks Per Day: 1 Total Drinks Per Week: 1 - Recreational Drug Use Recreational Drug Use: No - Living Situation & Occupation Living situation: Reports: , with Significant Other Occupation: Employed ED ROS GENERAL - Review of Systems Review Of Systems: See Below Constitutional: Reports: No Symptoms HEENT: Reports: No Symptoms Respiratory: Reports: Pleuritic Chest Pain Cardiovascular: Reports: Chest Pain Endocrine: Reports: No Symptoms GI/Abdominal: Reports: No Symptoms : Reports: No Symptoms Musculoskeletal: Reports: Other (chest pain) Skin: Reports: No Symptoms Neurological: Reports: No Symptoms Psychiatric: Reports: No Symptoms Hematologic/Lymphatic: Reports: No Symptoms Immunologic: Reports: No Symptoms ED EXAM, GENERAL - Physical Exam Exam: See Below Exam Limited By: No Limitations General Appearance: Alert, WD/WN, No Apparent Distress Eye Exam: Bilateral Eye: EOMI, Normal Fundi, Normal Inspection, PERRL Ears: Normal External Exam, Normal Canal, Hearing Grossly Normal, Normal TMs Ear Exam: Bilateral Ear: Auricle Normal, Canal Normal, TM normal Nose: Normal Inspection, Normal Mucosa, No Blood Throat/Mouth: Normal Inspection, Normal Oropharynx Head: Atraumatic, Normocephalic Neck: Normal Inspection, Supple, Non-Tender, Full Range of Motion Respiratory/Chest: No Respiratory Distress, Lungs Clear, Normal Breath Sounds, No Accessory Muscle Use, Chest Non-Tender GI/Abdominal: Normal Bowel Sounds, Soft, Non-Tender, No Organomegaly, No Distention, No Abnormal Bruit, No Mass (Female) Exam: Deferred Rectal (Female) Exam: Deferred Back Exam: Normal Inspection, Full Range of Motion, NT Extremities: Normal Inspection, Normal Range of Motion, Non-Tender, Normal Capillary Refill, No Pedal Edema Neurological: Alert, Oriented, CN II-XII Intact, Normal Cognition, Normal Gait, Normal Reflexes, No Motor/Sensory Deficits Psychiatric: Normal Affect, Normal Mood Skin Exam: Warm, Dry, Intact, Normal Color, No Rash Lymphatic: No Adenopathy EKG INTERPRETATION EKG Date: 12/12/17 Rhythm: NSR Central: Normal P-Wave: Present QRS: Normal ST-T: Normal QT: Normal Course - Vital Signs Last Recorded V/S: Last Vital Signs Temp 36.7 C 12/12/17 07:05 Pulse 90 12/12/17 08:14 Resp 18 12/12/17 07:05 BP 132/72 12/12/17 08:14 Pulse Ox 96 12/12/17 08:14 - Orders/Labs/Meds Orders: Active Orders 24 hr Category Date Time Status EKG Documentation Completion [RC] STAT Care 12/12/17 08:20 Active Chest 2V [CR] Stat Exams 12/12/17 07:18 Taken PE Chest [Ang Chest] [CT] Stat Exams 12/12/17 08:16 Taken Peripheral IV Insertion Adult [OM.PC] Routine Oth 12/12/17 07:18 Ordered Labs: Laboratory Tests 12/12/17 12/12/17 12/12/17 Range/Units 07:25 07:25 07:25 WBC 7.5 (4.0-10.0) x10^3/uL RBC 4.23 (4.00-5.50) x10^6/uL Hgb 13.2 (12.0-16.0) g/dL Hct 40.5 (33.0-47.0) % MCV 95.7 H D (78.0-93.0) fL MCH 31.2 (26.0-32.0) pg MCHC 32.6 (32.0-36.0) g/dL RDW Coeff of Tressa 12.6 (10.0-15.0) % Plt Count 256 (130-400) x10^3/uL Neut % (Auto) 50.6 (50.0-80.0) % Lymph % (Auto) 35.8 (25.0-50.0) % Sawyer % (Auto) 10.5 (2.0-11.0) % Eos % (Auto) 2.7 (0.0-4.0) % Baso % (Auto) 0.4 (0.2-1.2) % PT 9.9 (9.8-11.8) SEC INR 0.9 L (2.0-3.5) D-Dimer, Quantitative 1.00 H (<=0.58) mg/LFEU Sodium 138 (136-145) mmol/L Potassium 3.9 (3.5-5.1) mmol/L Chloride 99 (98-107) mmol/L Carbon Dioxide 30 (21-32) mmol/L Anion Gap 12.9 BUN 19 H (7-18) mg/dL Creatinine 1.0 (0.55-1.02) mg/dL Est Cr Clr Drug Dosing 45.71 mL/min Estimated GFR (MDRD) 57 Glucose 231 H (74-106) mg/dL Calcium 9.4 (8.5-10.1) mg/dL Corrected Calcium 9.64 (8.5-10.1) mg/dL Total Bilirubin 0.6 (0.2-1.0) mg/dL AST 35 (15-37) U/L ALT 76 H (14-59) U/L Alkaline Phosphatase 123 H (46-116) U/L POC Troponin I (0.00-0.08) ng/mL C-Reactive Protein 0.9 (<=0.9) mg/dL Total Protein 7.1 (6.4-8.2) g/dL Albumin 3.7 (3.4-5.0) g/dL Globulin 3.4 Albumin/Globulin Ratio 1.09 12/12/17 Range/Units 07:32 WBC (4.0-10.0) x10^3/uL RBC (4.00-5.50) x10^6/uL Hgb (12.0-16.0) g/dL Hct (33.0-47.0) % MCV (78.0-93.0) fL MCH (26.0-32.0) pg MCHC (32.0-36.0) g/dL RDW Coeff of Tressa (10.0-15.0) % Plt Count (130-400) x10^3/uL Neut % (Auto) (50.0-80.0) % Lymph % (Auto) (25.0-50.0) % Sawyer % (Auto) (2.0-11.0) % Eos % (Auto) (0.0-4.0) % Baso % (Auto) (0.2-1.2) % PT (9.8-11.8) SEC INR (2.0-3.5) D-Dimer, Quantitative (<=0.58) mg/LFEU Sodium (136-145) mmol/L Potassium (3.5-5.1) mmol/L Chloride (98-107) mmol/L Carbon Dioxide (21-32) mmol/L Anion Gap BUN (7-18) mg/dL Creatinine (0.55-1.02) mg/dL Est Cr Clr Drug Dosing mL/min Estimated GFR (MDRD) Glucose (74-106) mg/dL Calcium (8.5-10.1) mg/dL Corrected Calcium (8.5-10.1) mg/dL Total Bilirubin (0.2-1.0) mg/dL AST (15-37) U/L ALT (14-59) U/L Alkaline Phosphatase (46-116) U/L POC Troponin I 0.01 (0.00-0.08) ng/mL C-Reactive Protein (<=0.9) mg/dL Total Protein (6.4-8.2) g/dL Albumin (3.4-5.0) g/dL Globulin Albumin/Globulin Ratio Meds: Medications Discontinued Medications Generic Name Dose Route Start Last Admin Trade Name Freq PRN Reason Stop Dose Admin Morphine Sulfate 4 mg 12/12/17 07:19 12/12/17 07:28 Morphine IVPUSH 12/12/17 07:20 4 mg ONETIME ONE Administration Sodium Chloride 10 ml 12/12/17 07:18 Saline Flush FLUSH ASDIRECTED PRN Keep Vein Open Departure - Departure Time of Disposition: 11:20 Disposition: Home, Self-Care 01 Condition: Good Clinical Impression: Costochondritis - Discharge Information Instructions: Costochondritis, [id number], Thoracic Aortic Aneurysm Referrals: Vivien Lawrence MD [Primary Care Provider] - Forms: ED Department Discharge Additional Instructions: Thoracic surgery will contact you on Thursday regarding follow-up. He feels that the pain you are having today is not related to the aneurysm, but he would like to see you in the clinic next week. Return to the ER if you have increased discomfort, worsening pain, or shortness of breath. Increase prednisone to 40mg once daily for 6 days. If you do not hear from thoracic surgery, call [phone] to set up an appt. with Dr. Nails. - My Orders Last 24 Hours: My Active Orders 12/12/17 07:18 Chest 2V [CR] Stat Peripheral IV Insertion Adult [OM.PC] Routine 12/12/17 08:16 PE Chest [Ang Chest] [CT] Stat 12/12/17 08:20 EKG Documentation Completion [RC] STAT - Assessment/Plan Last 24 Hours: My Active Orders 12/12/17 07:18 Chest 2V [CR] Stat Peripheral IV Insertion Adult [OM.PC] Routine 12/12/17 08:16 PE Chest [Ang Chest] [CT] Stat 12/12/17 08:20 EKG Documentation Completion [RC] STAT
== END 2017-12-12 11:20 | disposition home or self-care (01) ==
LOC: VM.ED 06:58
DX: M94.0 Chondrocostal junction syndrome [Tietze] (principal); I50.9 Heart failure, unspecified; Z88.6 Allergy status to analgesic agent; Z91.011 Allergy to milk products; Z88.5 Allergy status to narcotic agent; Z88.8 Allergy status to other drugs, medicaments and biological substances; Z79.82 Long term (current) use of aspirin; Z79.899 Other long term (current) drug therapy; Z87.891 Personal history of nicotine dependence
CPT/HCPCS: 36415; 71046; 71275; 80053; 84484; 85025; 85379; 85610; 86140; 93005; 96374; 99285; J2270

== ENCOUNTER 2018-06-08 12:56 | Emergency (ER) | payer BC ==
[2018-06-08] MEDS ORDERED: Sodium Chloride 0.9% 10 ML Syringe FLUSH PRN (14:01)
[2018-06-08] MEDS ORDERED: Sodium Chloride 0.9% 1,000 ML IV ONE (14:03)
[2018-06-08] MEDS ORDERED: Ondansetron 4 MG/2 ML SDV IVPUSH ONE (14:29)
[2018-06-08] MEDS ORDERED: Morphine 2 MG/ML Syringe IVPUSH ONE (14:50)
[2018-06-08 14:59] LABS: CHLORIDE,CL 103 mmol/L (98-107); SODIUM,NA 141 mmol/L (136-145)
[2018-06-08 15:00] LABS: ANION GAP 9.9 mmol/L (10-20)
--- NOTE | 2018-06-08 15:44 | EDM.PDOC ---
ED HPI GENERAL MEDICAL PROBLEM - General Chief Complaint: General Stated Complaint: fever,chills,body aches/pains,n/v Time Seen by Provider: 06/08/18 14:00 Source of Information: Reports: Patient History Limitations: Reports: No Limitations - History of Present Illness INITIAL COMMENTS - FREE TEXT/NARRATIVE: Patient presents to the emergency room secondary afternoon with her with complaints of fever, nausea, chills, and vomiting. She was seen last week by pulmonology and diagnosed with a lung infection that she doesn't specify and was given doxycycline once a day for 7 days. She is also seen by Dr. Lawrence last week and was started on metformin 500 mg once daily in the evening. Since approximately Thursday she started having these above symptoms. She also describes having a headache, slight cough, and some generalized aches and pains. She does have a history of rheumatoid arthritis. Surgical history includes removal of her gallbladder, appendix, and she did have a hysterectomy. Her ovaries were left intact that time. Other pertinent information includes irritable bowel syndrome alternating constipation with diarrhea type. She also has a aortic valve been replaced sometime ago. She does take 162 mg of aspirin daily. Additional review of systems shows a denial of chest pain, increased shortness of breath and what she normally does have. She does have interstitial lung disease and reactive airway. She is also immunosuppressed with her rheumatoid arthritis medications. She was scheduled to have an appointment at the clinic at [facility] this afternoon and she and her presented prior to that and canceled her appointment at the clinic. 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 "everywhere" Pain Score (Numeric/FACES): 10 - Related Data Allergies Allergy/AdvReac Type Severity Reaction Status Date / Time aspirin Allergy Bronchospas Verified 06/08/18 13:26 ms Dairy Products Allergy Nausea Verified 06/08/18 13:26 methotrexate Allergy Other Verified 06/08/18 13:26 acetaminophen AdvReac Hypotension Verified 06/08/18 13:26 [From Darvocet-N] meperidine HCl [From Demerol] AdvReac Hypotension Verified 06/08/18 13:26 propoxyphene napsylate AdvReac Hypotension Verified 06/08/18 13:26 [From Ninfat-N] Home Meds: Home Meds Aspirin [Halfprin] 81 mg PO DAILY 12/26/16 [History] Ibuprofen 400 - 800 mg PO Q6HR PRN 12/26/16 [History] Lisinopril [Zestril] 40 mg PO DAILY 12/26/16 [History] Metoprolol Succinate [Toprol XL] 25 mg PO DAILY 12/26/16 [History] Multivitamin [Multi-Vitamin Daily] 1 tab PO DAILY 12/26/16 [History] Pramipexole [Mirapex] 0.5 - 1 mg PO BEDTIME 12/26/16 [History] Venlafaxine [Effexor XR] 150 mg PO DAILY 12/26/16 [History] atorvaSTATin [Lipitor] 20 mg PO BEDTIME 12/26/16 [History] Albuterol [IJD: Albuterol] 2.5 mg NEB QID 12/12/17 [History] Amitriptyline [Elavil] 100 - 150 mg PO BEDTIME PRN 12/12/17 [History] Furosemide [Lasix] 20 mg PO DAILY 12/12/17 [History] LORazepam [Ativan] 0.25 - 0.5 mg PO BEDTIME 12/12/17 [History] predniSONE [Prednisone] 5 mg PO ASDIRECTED 12/12/17 [History] metFORMIN [Glucophage XR] 500 mg PO WITHDINNER 06/08/18 [History] Past Medical History HEENT History: Reports: Allergic Rhinitis Other HEENT History: wears bilateral hearing aids Cardiovascular History: Reports: Heart Failure Other Cardiovascular History: coarctation of aorta,acute ischemic stroke Respiratory History: Reports: Sleep Apnea Other Respiratory History: allergic rhinitis,. 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 RLS. BURSITIS LEFT HIP. BILAT WRIST PAIN. POLYARTHRALGIA Neurological History: Reports: CVA, Migraines, Seizure Other Neuro History: restless leg syndrome,. H/O HEMIPARESIS. SONDYLOSIS CERVIAL REGOIN Psychiatric History: Reports: Anxiety, Depression Endocrine/Metabolic History: Reports: None, Osteopenia Hematologic History: Reports: None Immunologic History: Reports: None Oncologic (Cancer) History: Reports: None Dermatologic History: Reports: None - Infectious Disease History Infectious Disease History: Reports: None - Past Surgical History HEENT Surgical History: Reports: Other (See Below) Other HEENT Surgeries/Procedures: TYMPANOPLASTY Cardiovascular Surgical History: Reports: Other (See Below) Other Cardiovascular Surgeries/Procedures: BALLOON ANGIAPLASTY W REPAIR OF AORTIC VALVE GI Surgical History: Reports: Appendectomy, Cholecystectomy Female Surgical History: Reports: Hysterectomy Musculoskeletal Surgical History: Reports: Carpal Tunnel, Other (See Below) Other Musculoskeletal Surgeries/Procedures:: bunionectomy Social & Family History - Family History Cardiac: Reports: CAD Musculoskeletal: Reports: Arthritis Neurological: Reports: Dementia Oncologic: Reports: Breast, Colon - Tobacco Use Smoking Status *Q: Current Status Unknown - Living Situation & Occupation Living situation: Reports: , with Significant Other Occupation: Employed ED ROS GENERAL - Review of Systems Review Of Systems: See Below Constitutional: Reports: Fever, Chills HEENT: Reports: No Symptoms Respiratory: Reports: Shortness of Breath (chronic) Cardiovascular: Reports: Dyspnea on Exertion (chronic) Endocrine: Reports: No Symptoms GI/Abdominal: Reports: Nausea, Vomiting : Reports: No Symptoms Musculoskeletal: Reports: Joint Pain Skin: Reports: No Symptoms Neurological: Reports: No Symptoms Psychiatric: Reports: No Symptoms Hematologic/Lymphatic: Reports: No Symptoms Immunologic: Reports: No Symptoms ED EXAM, GENERAL - Physical Exam Exam: See Below General Appearance: Alert, WD/WN, Mild Distress Eye Exam: Bilateral Eye: EOMI, PERRL Ears: Normal TMs Nose: Normal Inspection, Normal Mucosa, No Blood Throat/Mouth: Normal Inspection, Normal Lips, Normal Teeth, Normal Gums, Normal Oropharynx, Normal Voice, No Airway Compromise Head: Atraumatic, Normocephalic Neck: Normal Inspection, Supple, Non-Tender, Full Range of Motion Respiratory/Chest: No Respiratory Distress, Lungs Clear, Normal Breath Sounds, No Accessory Muscle Use, Chest Non-Tender Cardiovascular: Normal Peripheral Pulses, Regular Rate, Rhythm, No Edema, No Gallop, No JVD, No Murmur, No Rub GI/Abdominal: Normal Bowel Sounds, Soft, Non-Tender, No Organomegaly, No Distention, No Abnormal Bruit, No Mass Back Exam: Normal Inspection, Full Range of Motion, NT Extremities: Normal Inspection, Normal Range of Motion, Non-Tender, Normal Capillary Refill, No Pedal Edema Neurological: Alert, Oriented, CN II-XII Intact, Normal Cognition, Normal Gait, Normal Reflexes, No Motor/Sensory Deficits Psychiatric: Normal Affect, Normal Mood Skin Exam: Warm, Dry, Intact, Normal Color, No Rash Lymphatic: No Adenopathy EKG INTERPRETATION EKG Date: 06/08/18 Time: 14:46 Rhythm: NSR Rate (Beats/Min): 86 Young Harris: Normal P-Wave: Present QRS: Normal ST-T: Other (ST, T wave changes from 12/2017 EKG) QT: Normal Comparison: NA - No Prior EKG Course - Vital Signs Last Recorded V/S: Last Vital Signs Temp 36.9 C 06/08/18 13:26 Pulse 88 06/08/18 13:26 Resp 18 06/08/18 13:26 BP 139/96 H 06/08/18 13:26 Pulse Ox 99 06/08/18 13:26 - Orders/Labs/Meds Orders: Active Orders 24 hr Category Date Time Status EKG Documentation Completion [RC] STAT Care 06/08/18 14:01 Active Chest 1V Frontal [CR] Stat Exams 06/08/18 14:01 Taken CULTURE URINE [RM] Stat Lab 06/08/18 15:06 Received Sodium Chloride 0.9% [Saline Flush] Med 06/08/18 14:01 Active 10 ml FLUSH ASDIRECTED PRN Saline Lock Insert [OM.PC] Routine Oth 06/08/18 14:01 Ordered Medication Orders Sodium Chloride (Saline Flush) 10 ml FLUSH ASDIRECTED PRN PRN Reason: Keep Vein Open Labs: Laboratory Tests 06/08/18 06/08/18 06/08/18 Range/Units 14:20 14:20 14:20 WBC 5.2 (4.0-10.0) x10^3/uL RBC 4.59 (4.00-5.50) x10^6/uL Hgb 14.8 D (12.0-16.0) g/dL Hct 43.5 (33.0-47.0) % MCV 94.8 H (78.0-93.0) fL MCH 32.2 H (26.0-32.0) pg MCHC 34.0 (32.0-36.0) g/dL RDW Coeff of [place] 12.8 (10.0-15.0) % Plt Count 234 (130-400) x10^3/uL Neut % (Auto) 63.8 (50.0-80.0) % Lymph % (Auto) 18.5 L (25.0-50.0) % [place] % (Auto) 15.4 H (2.0-11.0) % Eos % (Auto) 1.9 (0.0-4.0) % Baso % (Auto) 0.4 (0.2-1.2) % PT (9.6-11.4) SEC INR (2.0-3.5) Sodium 141 (136-145) mmol/L Potassium 3.9 (3.5-5.1) mmol/L Chloride 103 (98-107) mmol/L Carbon Dioxide 32 (21-32) mmol/L Anion Gap 9.9 L (10-20) mmol/L BUN 13 (7-18) mg/dL Creatinine 0.7 (0.55-1.02) mg/dL Est Cr Clr Drug Dosing 62.94 mL/min Estimated GFR (MDRD) > 60 Glucose 156 H (74-106) mg/dL Lactic Acid 0.9 (0.4-2.0) mmol/L Calcium 9.1 (8.5-10.1) mg/dL Corrected Calcium 9.42 (8.5-10.1) mg/dL Magnesium 1.9 (1.8-2.4) mg/dL Total Bilirubin 0.8 (0.2-1.0) mg/dL AST 43 H (15-37) U/L ALT 72 H (14-59) U/L Alkaline Phosphatase 117 H (46-116) U/L Troponin I < 0.017 (<=0.056) ng/mL NT-Pro-B Natriuret Pep 212 H (<=125) pg/mL Total Protein 7.0 (6.4-8.2) g/dL Albumin 3.6 (3.4-5.0) g/dL Globulin 3.4 Albumin/Globulin Ratio 1.06 Amylase 52 (25-115) U/L TSH, Ultra Sensitive 0.903 (0.358-3.74) uIU/mL Urine Color (YELLOW) Urine Appearance (CLEAR) Urine pH (5.0-8.0) Ur Specific [place] Urine Protein (NEGATIVE) mg/dL Urine Glucose (UA) (NEGATIVE) mg/dL Urine Ketones (NEGATIVE) mg/dL Urine Occult Blood (NEGATIVE) Urine Nitrite (NEGATIVE) Urine Bilirubin (NEGATIVE) Urine Urobilinogen (0.2) EU/dL Ur Leukocyte Esterase (NEGATIVE) Urine RBC (NOT SEEN) /HPF Urine WBC (NOT SEEN) /HPF Ur Squamous Epith Cells (NEGATIVE) /HPF Urine Bacteria (NEGATIVE) /HPF Urine Mucus (NEGATIVE) /LPF 06/08/18 06/08/18 Range/Units 14:20 15:06 WBC (4.0-10.0) x10^3/uL RBC (4.00-5.50) x10^6/uL Hgb (12.0-16.0) g/dL Hct (33.0-47.0) % MCV (78.0-93.0) fL MCH (26.0-32.0) pg MCHC (32.0-36.0) g/dL RDW Coeff of [place] (10.0-15.0) % Plt Count (130-400) x10^3/uL Neut % (Auto) (50.0-80.0) % Lymph % (Auto) (25.0-50.0) % [place] % (Auto) (2.0-11.0) % Eos % (Auto) (0.0-4.0) % Baso % (Auto) (0.2-1.2) % PT 9.7 (9.6-11.4) SEC INR 0.9 L (2.0-3.5) Sodium (136-145) mmol/L Potassium (3.5-5.1) mmol/L Chloride (98-107) mmol/L Carbon Dioxide (21-32) mmol/L Anion Gap (10-20) mmol/L BUN (7-18) mg/dL Creatinine (0.55-1.02) mg/dL Est Cr Clr Drug Dosing mL/min Estimated GFR (MDRD) Glucose (74-106) mg/dL Lactic Acid (0.4-2.0) mmol/L Calcium (8.5-10.1) mg/dL Corrected Calcium (8.5-10.1) mg/dL Magnesium (1.8-2.4) mg/dL Total Bilirubin (0.2-1.0) mg/dL AST (15-37) U/L ALT (14-59) U/L Alkaline Phosphatase (46-116) U/L Troponin I (<=0.056) ng/mL NT-Pro-B Natriuret Pep (<=125) pg/mL Total Protein (6.4-8.2) g/dL Albumin (3.4-5.0) g/dL Globulin Albumin/Globulin Ratio Amylase (25-115) U/L TSH, Ultra Sensitive (0.358-3.74) uIU/mL Urine Color Yellow (YELLOW) Urine Appearance Clear (CLEAR) Urine pH 7.0 (5.0-8.0) Ur Specific [place] 1.015 Urine Protein Negative (NEGATIVE) mg/dL Urine Glucose (UA) Negative (NEGATIVE) mg/dL Urine Ketones Negative (NEGATIVE) mg/dL Urine Occult Blood Negative (NEGATIVE) Urine Nitrite Negative (NEGATIVE) Urine Bilirubin Negative (NEGATIVE) Urine Urobilinogen 0.2 (0.2) EU/dL Ur Leukocyte Esterase Negative (NEGATIVE) Urine RBC Not seen (NOT SEEN) /HPF Urine WBC 0-5 (NOT SEEN) /HPF Ur Squamous Epith Cells Rare (NEGATIVE) /HPF Urine Bacteria Not seen (NEGATIVE) /HPF Urine Mucus Not seen (NEGATIVE) /LPF Meds: Medications Generic Name Dose Route Start Last Admin Trade Name Freq PRN Reason Stop Dose Admin Sodium Chloride 10 ml 06/08/18 14:01 Saline Flush FLUSH ASDIRECTED PRN Keep Vein Open Discontinued Medications Generic Name Dose Route Start Last Admin Trade Name Freq PRN Reason Stop Dose Admin Sodium Chloride 1,000 mls @ 999 mls/hr 06/08/18 14:03 06/08/18 14:15 Normal Saline IV 06/08/18 15:03 999 mls/hr ONETIME ONE Administration Morphine Sulfate 1 mg 06/08/18 14:50 06/08/18 15:08 Morphine IVPUSH 06/08/18 14:51 1 mg ONETIME ONE Administration Ondansetron HCl 4 mg 06/08/18 14:29 06/08/18 14:35 Zofran IVPUSH 06/08/18 14:30 4 mg ONETIME ONE Administration Departure - Departure Time of Disposition: 17:04 Disposition: Home, Self-Care 01 Condition: Good Clinical Impression: Adverse reaction to drug - Discharge Information *PRESCRIPTION DRUG MONITORING PROGRAM REVIEWED*: Not Applicable *COPY OF PRESCRIPTION DRUG MONITORING REPORT IN PATIENT MATTHEW: Not Applicable Referrals: Vivien Lawrence MD [Primary Care Provider] - Forms: ED Department Discharge Additional Instructions: I did visit with Dr. Lawrence regarding your symptoms and your recent metformin start. This may be an adverse reaction to the medication and she would like you to stop the medication and make a follow up appointment with her for . If you feel worse in the meantime come back to the clinic to be evaluated. Stay well hydrated. Continue to take the zofran for nausea. Please call if you have any further questions or concerns. - Problem List & Annotations (1) Adverse reaction to drug SNOMED Code(s): 55277914 Code(s): T50.905A - ADVERSE EFFECT OF UNSP DRUG/MEDS/BIOL SUBST, INIT Status: Acute Priority: Medium Current Visit: Yes Qualifiers: Encounter type: initial encounter Qualified Code(s): T50.905A - Adverse effect of unspecified drugs, medicaments and biological substances, initial encounter - Problem List Review Problem List Initiated/Reviewed/Updated: Yes - My Orders Last 24 Hours: My Active Orders 06/08/18 14:01 EKG Documentation Completion [RC] STAT Chest 1V Frontal [CR] Stat Sodium Chloride 0.9% [Saline Flush] 10 ml FLUSH ASDIRECTED PRN Saline Lock Insert [OM.PC] Routine 06/08/18 15:06 CULTURE URINE [RM] Stat - Assessment/Plan Last 24 Hours: My Active Orders 06/08/18 14:01 EKG Documentation Completion [RC] STAT Chest 1V Frontal [CR] Stat Sodium Chloride 0.9% [Saline Flush] 10 ml FLUSH ASDIRECTED PRN Saline Lock Insert [OM.PC] Routine 06/08/18 15:06 CULTURE URINE [RM] Stat Assessment:: adverse drug reaction Plan: I did visit with Dr. Lawrence regarding your symptoms and your recent metformin start. This may be an adverse reaction to the medication and she would like you to stop the medication and make a follow up appointment with her for . If you feel worse in the meantime come back to the clinic to be evaluated. Stay well hydrated. Continue to take the zofran for nausea. Please call if you have any further questions or concerns.
[2018-06-08 17:20] VITALS: BP 128/88
== END 2018-06-08 17:13 | disposition home or self-care (01) ==
LOC: VM.ED 12:56
DX: R11.2 Nausea with vomiting, unspecified (principal); R50.9 Fever, unspecified; R51 Headache; T50.905A Adverse effect of unspecified drugs, medicaments and biological substances, initial encounter; I50.9 Heart failure, unspecified; M06.9 Rheumatoid arthritis, unspecified; Z90.710 Acquired absence of both cervix and uterus; Z88.6 Allergy status to analgesic agent; Z91.011 Allergy to milk products; Z79.82 Long term (current) use of aspirin; Z79.84 Long term (current) use of oral hypoglycemic drugs; Z79.899 Other long term (current) drug therapy
CPT/HCPCS: 36415; 71045; 80053; 81001; 82150; 83605; 83735; 83880; 84443; 84484; 85025; 85610; 87081; 87086; 87804; 87804-59; 87880-QW; 93005; 96361; 96374; 96375; 99284; J2270; J2405; J7030

== ENCOUNTER 2018-12-06 08:50 | Emergency (ER) | payer OTHER, BC ==
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
[2018-12-06 09:32] VITALS: BP 106/50
== END 2018-12-06 09:39 | disposition home or self-care (01) ==
LOC: VM.ED 08:50
DX: Z04.1 Encounter for examination and observation following transport accident (principal); I50.9 Heart failure, unspecified; F41.9 Anxiety disorder, unspecified; F32.9 Major depressive disorder, single episode, unspecified; Z88.8 Allergy status to other drugs, medicaments and biological substances; Z91.011 Allergy to milk products; Z79.82 Long term (current) use of aspirin; Z79.899 Other long term (current) drug therapy
CPT/HCPCS: 99284

== ENCOUNTER 2020-10-13 09:05 | Emergency (ER) | payer MEDICARE, OTHER ==
[2020-10-13] MEDS ORDERED: Morphine 2 MG/ML SYRINGE IM ONE (09:18)
[2020-10-13] MEDS ORDERED: Cyclobenzaprine 10 MG Tab PO ONE (09:19)
--- NOTE | 2020-10-13 09:26 | EDM.PDOC ---
ED HPI GENERAL MEDICAL PROBLEM - General Stated Complaint: ER Time Seen by Provider: 10/13/20 09:09 Source of Information: Reports: Patient - History of Present Illness INITIAL COMMENTS - FREE TEXT/NARRATIVE: Jaqueline is a 60 y/o female who is brought to the ER by EMS this AM after she could not longer take the left hip pain and spasms that she has been ahving over the course of the last week. She denies any injury. She had her RA injection a week ago and since then she has been having more left hip pain. She does get this occasionally from the injection. Rates the pain 10/10 and constant with "spasms". She had to lay down on the floor and could not get back up, so her called 911. She does report taking 2 Tramadol at 4am, but they have been of no help. Left Hip Pain Score (Numeric/FACES): 10 - Related Data Allergies Allergy/AdvReac Type Severity Reaction Status Date / Time aspirin Allergy Bronchospas Verified 10/13/20 09:43 ms Dairy Products Allergy Nausea Verified 10/13/20 09:43 methotrexate Allergy Other Verified 10/13/20 09:43 acetaminophen AdvReac Hypotension Verified 10/13/20 09:43 [From Darvocet-N] meperidine HCl [From Demerol] AdvReac Hypotension Verified 10/13/20 09:43 propoxyphene napsylate AdvReac Hypotension Verified 10/13/20 09:43 [From Darvocet-N] Home Meds: Home Meds Aspirin [Halfprin] 81 mg PO DAILY 12/26/16 [History] Ibuprofen 400 - 800 mg PO Q6HR PRN 12/26/16 [History] Metoprolol Succinate [Toprol XL] 25 mg PO DAILY 12/26/16 [History] Multivitamin [Multi-Vitamin Daily] 1 tab PO DAILY 12/26/16 [History] Pramipexole [Mirapex] 0.5 - 1 mg PO BEDTIME 12/26/16 [History] Venlafaxine [Effexor XR] 150 mg PO DAILY 12/26/16 [History] atorvaSTATin [Lipitor] 20 mg PO BEDTIME 12/26/16 [History] lisinopriL [Zestril] 40 mg PO DAILY 12/26/16 [History] Albuterol [IJD: Albuterol] 2.5 mg NEB QID 12/12/17 [History] Amitriptyline [Elavil] 100 - 150 mg PO BEDTIME PRN 12/12/17 [History] Furosemide [Lasix] 20 mg PO DAILY 12/12/17 [History] LORazepam [Ativan] 0.25 - 0.5 mg PO BEDTIME 12/12/17 [History] predniSONE [Prednisone] 5 mg PO ASDIRECTED 12/12/17 [History] metFORMIN [Glucophage XR] 500 mg PO WITHDINNER 06/08/18 [History] Past Medical History HEENT History: Reports: Allergic Rhinitis Other HEENT History: wears bilateral hearing aids Cardiovascular History: Reports: Heart Failure Other Cardiovascular History: coarctation of aorta,acute ischemic stroke Respiratory History: Reports: Sleep Apnea Other Respiratory History: allergic rhinitis,. 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 RLS. BURSITIS LEFT HIP. BILAT WRIST PAIN. POLYARTHRALGIA Neurological History: Reports: CVA, Migraines, Seizure Other Neuro History: restless leg syndrome,. H/O HEMIPARESIS. SONDYLOSIS CERVIAL REGOIN Psychiatric History: Reports: Anxiety, Depression Endocrine/Metabolic History: Reports: None, Osteopenia Hematologic History: Reports: None Immunologic History: Reports: None Oncologic (Cancer) History: Reports: None Dermatologic History: Reports: None - Infectious Disease History Infectious Disease History: Reports: None - Past Surgical History HEENT Surgical History: Reports: Other (See Below) Other HEENT Surgeries/Procedures: TYMPANOPLASTY Cardiovascular Surgical History: Reports: Other (See Below) Other Cardiovascular Surgeries/Procedures: BALLOON ANGIAPLASTY W REPAIR OF AORTIC VALVE GI Surgical History: Reports: Appendectomy, Cholecystectomy Female Surgical History: Reports: Hysterectomy Musculoskeletal Surgical History: Reports: Carpal Tunnel, Other (See Below) Other Musculoskeletal Surgeries/Procedures:: bunionectomy Social & Family History - Family History Cardiac: Reports: CAD Musculoskeletal: Reports: Arthritis Neurological: Reports: Dementia Oncologic: Reports: Breast, Colon - Living Situation & Occupation Living situation: Reports: , with Significant Other Occupation: Employed Review of Systems - Review of Systems Review Of Systems: See Below Constitutional: Reports: No Symptoms Eyes: Reports: No Symptoms Ears: Reports: No Symptoms Nose: Reports: No Symptoms Mouth/Throat: Reports: No Symptoms Respiratory: Reports: No Symptoms Cardiovascular: Reports: No Symptoms GI/Abdominal: Reports: No Symptoms Genitourinary: Reports: No Symptoms Musculoskeletal: Reports: Joint Pain (left hip) Skin: Reports: No Symptoms Neurological: Reports: No Symptoms Psychiatric: Reports: No Symptoms ED EXAM, GENERAL - Physical Exam Exam: See Below General Appearance: Alert, WD/WN, No Apparent Distress (female. Obviously in pain and is holding her left leg up against her and rubbing her left thigh reg ion.) Ears: Normal External Exam, Hearing Grossly Normal Nose: Normal Inspection Throat/Mouth: Normal Inspection Head: Atraumatic, Normocephalic Neck: Normal Inspection Respiratory/Chest: No Respiratory Distress, Lungs Clear, Chest Non-Tender Cardiovascular: Normal Peripheral Pulses, Regular Rate, Rhythm GI/Abdominal: Normal Bowel Sounds, Soft (Female) Exam: Deferred Rectal (Female) Exam: Deferred Back Exam: Normal Inspection Extremities: Other (Left hip is unremarkable, +tender along left thigh; ROM not tested due to pain upon arrival.) Neurological: Alert, Oriented, CN II-XII Intact, Normal Cognition, No Motor/Sensory Deficits Psychiatric: Normal Affect, Normal Mood Skin Exam: Warm, Dry, Intact, Normal Color Course - Vital Signs Text/Narrative:: 09 The patient was seen by the BEAN WEIGHER. She was given Morphine 2mg IM and Cyclobenzaprine 10mg po. 1020 Patient has had no relief of the pain in her left hip or decrease in spasms. Fentanyl 100mcg IM ordered. 1050 Patient has had no decrease in her pain. Labs and CT ordered to rule osteonecrosis of the joint or other injury. Labs to rule out infectious processes. Will order Dilaudid 1mg IVP. [address] reviewed. No acute fx noted on CT other than severe degenerative disease. Labs neg. Patient is still persistently having pain and rubbing her left thigh and unable to relax. Dilaudid 2mg IVP ordered. 1400 Patient resting now. Will discharge to home when able. Family aware of instructions. Written instructions were given to the patient and her family and she left the ER in stable condition. Last Recorded V/S: Last Vital Signs Temp 36.9 C 10/13/20 13:15 Pulse 98 10/13/20 13:15 Resp 12 10/13/20 13:15 BP 118/89 10/13/20 13:15 Pulse Ox 98 10/13/20 13:15 - Orders/Labs/Meds Labs: Laboratory Tests 10/13/20 10/13/20 Range/Units 11:29 11:29 WBC 5.1 (4.0-10.0) x10^3/uL RBC 4.00 (4.00-5.50) x10^6/uL Hgb 12.2 D (12.0-16.0) g/dL Hct 38.4 (33.0-47.0) % MCV 96.0 H (78.0-93.0) fL MCH 30.5 (26.0-32.0) pg MCHC 31.8 L (32.0-36.0) g/dL RDW Coeff of Tressa 13.9 (10.0-15.0) % Plt Count 249 (130-400) x10^3/uL Neut % (Auto) 55.8 (50.0-80.0) % Lymph % (Auto) 21.5 L (25.0-50.0) % Starke % (Auto) 16.6 H (2.0-11.0) % Eos % (Auto) 4.9 H (0.0-4.0) % Baso % (Auto) 1.2 (0.2-1.2) % Sodium 146 H (136-145) mmol/L Potassium 3.8 (3.5-5.1) mmol/L Chloride 106 (98-107) mmol/L Carbon Dioxide 34 H (21-32) mmol/L Anion Gap 9.8 (5-15) mmol/L BUN 19 H (7-18) mg/dL Creatinine 0.8 (0.55-1.02) mg/dL Est Cr Clr Drug Dosing TNP Estimated GFR (MDRD) > 60 Glucose 72 L (74-106) mg/dL Calcium 9.0 (8.5-10.1) mg/dL Corrected Calcium 9.56 (8.5-10.1) mg/dL Total Bilirubin 0.6 (0.2-1.0) mg/dL AST 18 (15-37) U/L ALT 29 (14-59) U/L Alkaline Phosphatase 83 (46-116) U/L C-Reactive Protein 0.4 (<=0.9) mg/dL Total Protein 6.4 (6.4-8.2) g/dL Albumin 3.3 L (3.4-5.0) g/dL Globulin 3.1 Albumin/Globulin Ratio 1.06 Meds: Medications Discontinued Medications Generic Name Dose Route Start Last Admin Trade Name Juvencio PRN Reason Stop Dose Admin Cyclobenzaprine HCl 10 mg 10/13/20 09:19 10/13/20 09:35 Flexeril PO 10/13/20 09:20 10 mg ONETIME ONE Administration Fentanyl 100 mcg 10/13/20 10:19 10/13/20 10:35 Sublimaze IM 10/13/20 10:20 100 mcg ONETIME ONE Administration Hydromorphone HCl 1 mg 10/13/20 11:21 10/13/20 11:26 Dilaudid IVPUSH 10/13/20 11:22 1 mg ONETIME ONE Administration Hydromorphone HCl 2 mg 10/13/20 12:39 10/13/20 12:47 Dilaudid IVPUSH 10/13/20 12:40 2 mg ONETIME ONE Administration Morphine Sulfate 2 mg 10/13/20 09:18 10/13/20 09:33 Morphine IM 10/13/20 09:19 2 mg ONETIME ONE Administration Departure - Departure Time of Disposition: 13:44 Disposition: Home, Self-Care 01 Condition: Good Clinical Impression: Left hip pain Rheumatoid arthritis Qualifiers: Rheumatoid arthritis location: unspecified site Rheumatoid factor presence: without rheumatoid factor Qualified Code(s): M06.00 - Rheumatoid arthritis without rheumatoid factor, unspecified site - Discharge Information *PRESCRIPTION DRUG MONITORING PROGRAM REVIEWED*: No *COPY OF PRESCRIPTION DRUG MONITORING REPORT IN PATIENT MATTHEW: No Instructions: Hip Pain Referrals: Vivien Lawrence MD [Primary Care Provider] - Sepsis Event Note (ED) - Focused Exam Vital Signs: Vital Signs Temp Pulse Resp BP Pulse Ox Pulse Ox 10/13/20 13:15 36.9 C 98 12 118/89 98 10/13/20 12:50 93 11 L 116/55 L 97 10/13/20 12:21 36.7 C 93 18 149/84 H 95 10/13/20 09:07 35.9 C L 99 20 142/74 H 99 10/13/20 09:05 98 - Assessment/Plan Assessment:: 1)Left Hip Pain 2)Rheumatoid Arthritis Plan: -Resume your pain meds as prescribed by Dr Lawrence -Use ice or heat as needed for comfort -Rest as needed. You were given several narcotic pain meds today in the ER any be sleepy all day. -Follow up with your PCP for further concerns or return to the ER.
[2020-10-13] MEDS ORDERED: fentaNYL 100 MCG/2 ML SDV IM ONE (10:19)
[2020-10-13] MEDS ORDERED: HYDROmorphone 1 MG/ML Syringe IVPUSH ONE ×2 (11:21→12:39)
[2020-10-13 11:55] LABS: ANION GAP 9.8 mmol/L (5-15); CHLORIDE,CL 106 mmol/L (98-107); SODIUM,NA 146 mmol/L (136-145)
--- NOTE | 2020-10-13 12:14 | CT ---
[id number] CT/CT Hip Left WO IV Exam: CT Hip Left WO IV Clinical Data: LEFT HIP PAIN COMPARISON: NO PREVIOUS SIMILAR EXAM IS AVAILABLE FINDINGS: There is no acute fracture or dislocation There are degenerative changes IMPRESSION: SIGNIFICANT DEGENERATIVE CHANGES NO FRACTURE OR DISLOCATION Joaquin Maciel MD 10/13/20 1212 Thank you for allowing us to participate in the care of your patient.
[2020-10-13 14:10] VITALS: BP 118/89; PULSE 98
== END 2020-10-13 13:57 | disposition home or self-care (01) ==
LOC: VM.ED 09:05
DX: M25.552 Pain in left hip (principal); M06.00 Rheumatoid arthritis without rheumatoid factor, unspecified site; I50.9 Heart failure, unspecified; Z88.8 Allergy status to other drugs, medicaments and biological substances; Z91.011 Allergy to milk products; Z88.6 Allergy status to analgesic agent; Z79.82 Long term (current) use of aspirin; Z79.899 Other long term (current) drug therapy
CPT/HCPCS: 36415; 73700-LT; 80053; 85025; 86140; 94760; 96372; 96374; 96376; 99284; 99284-25; A9270-GY; J1170; J2270; J3010

== ENCOUNTER 2020-10-18 10:38 | Emergency (ER) | payer OTHER ==
[2020-10-18] MEDS ORDERED: HYDROmorphone 1 MG/ML Syringe IVPUSH ONE ×2 (10:49→11:19)
--- NOTE | 2020-10-18 11:04 | EDM.PDOC ---
ED HPI GENERAL MEDICAL PROBLEM - General Chief Complaint: Lower Extremity Injury/Pain Time Seen by Provider: 10/18/20 10:45 Source of Information: Reports: Patient, EMS, EMS Notes Reviewed, RN, RN Notes Reviewed History Limitations: Reports: No Limitations - History of Present Illness INITIAL COMMENTS - FREE TEXT/NARRATIVE: Pt. presents to ER with complaints of severe L hip pain. Pt. states that she was bending over to orange picker her crutches when the discomfort got worse but denies any significant trauma today. She was seen in ER for the same on 10/13/2020. At that time she required several doses of dilaudid and fentanyl for the pain, but states that it was never really fully controlled. She is on tramadol 50mg 4 times daily for chronic pain. During her visit on , she also had labs and CT of the hip without contrast. There was no evidence of fracture, infectious process, etc. She was noted to have severe degeneration of the L hip. Pt. also has a history of chronic low back pain and had an MRI on 09/12/2019 which showed L4-L5, L5-S1 disc herniation. At that time, she was complaining of R lower extremity radiculopathy. Pt. states that the pain in the L hip is exacerbated by movement of the L hip joint/palpation/weight bearing, so it appears that this discomfort today is associated with the chronic hip degeneration. Pt. did see her PCP after her last visit. Does not appear to have had a change to her medication/ortho referral at this point. She denies any fever or chills. No recent trauma/fall. Denies any incontinence or saddle anesthesia. States pain is in the hip and radiates into the L lateral thigh, worse with movement. Denies any numbness/tingling in the distal portion of the extremity. Location: Reports: Lower Extremity, Left Left Hip Pain Score (Numeric/FACES): 10 - Related Data Allergies Allergy/AdvReac Type Severity Reaction Status Date / Time aspirin Allergy Bronchospas Verified 10/18/20 10:55 ms Dairy Products Allergy Nausea Verified 10/18/20 10:55 methotrexate Allergy Other Verified 10/18/20 10:55 acetaminophen AdvReac Hypotension Verified 10/18/20 10:55 [From Darvocet-N] meperidine HCl [From Demerol] AdvReac Hypotension Verified 10/18/20 10:55 propoxyphene napsylate AdvReac Hypotension Verified 10/18/20 10:55 [From Ryan] Home Meds: Home Meds Aspirin [Halfprin] 81 mg PO DAILY 12/26/16 [History] Ibuprofen 400 - 800 mg PO Q6HR PRN 12/26/16 [History] Metoprolol Succinate [Toprol XL] 25 mg PO DAILY 12/26/16 [History] Multivitamin [Multi-Vitamin Daily] 1 tab PO DAILY 12/26/16 [History] Pramipexole [Mirapex] 0.5 - 1 mg PO BEDTIME 12/26/16 [History] Venlafaxine [Effexor XR] 150 mg PO DAILY 12/26/16 [History] atorvaSTATin [Lipitor] 20 mg PO BEDTIME 12/26/16 [History] lisinopriL [Zestril] 40 mg PO DAILY 12/26/16 [History] Albuterol [IJD: Albuterol] 2.5 mg NEB QID 12/12/17 [History] Amitriptyline [Elavil] 100 - 150 mg PO BEDTIME PRN 12/12/17 [History] Furosemide [Lasix] 20 mg PO DAILY 12/12/17 [History] LORazepam [Ativan] 0.25 - 0.5 mg PO BEDTIME 12/12/17 [History] predniSONE [Prednisone] 5 mg PO ASDIRECTED 12/12/17 [History] metFORMIN [Glucophage XR] 500 mg PO WITHDINNER 06/08/18 [History] Past Medical History HEENT History: Reports: Allergic Rhinitis Other HEENT History: wears bilateral hearing aids Cardiovascular History: Reports: Heart Failure Other Cardiovascular History: coarctation of aorta,acute ischemic stroke Respiratory History: Reports: Sleep Apnea Other Respiratory History: allergic rhinitis,. 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 RLS. BURSITIS LEFT HIP. BILAT WRIST PAIN. POLYARTHRALGIA Neurological History: Reports: CVA, Migraines, Seizure Other Neuro History: restless leg syndrome,. H/O HEMIPARESIS. SONDYLOSIS CERVIAL REGOIN Psychiatric History: Reports: Anxiety, Depression Endocrine/Metabolic History: Reports: None, Osteopenia Hematologic History: Reports: None Immunologic History: Reports: None Oncologic (Cancer) History: Reports: None Dermatologic History: Reports: None - Infectious Disease History Infectious Disease History: Reports: None - Past Surgical History HEENT Surgical History: Reports: Other (See Below) Other HEENT Surgeries/Procedures: TYMPANOPLASTY Cardiovascular Surgical History: Reports: Other (See Below) Other Cardiovascular Surgeries/Procedures: BALLOON ANGIAPLASTY W REPAIR OF AORTIC VALVE GI Surgical History: Reports: Appendectomy, Cholecystectomy Female Surgical History: Reports: Hysterectomy Musculoskeletal Surgical History: Reports: Carpal Tunnel, Other (See Below) Other Musculoskeletal Surgeries/Procedures:: bunionectomy Social & Family History - Family History Cardiac: Reports: CAD Musculoskeletal: Reports: Arthritis Neurological: Reports: Dementia Oncologic: Reports: Breast, Colon - Living Situation & Occupation Living situation: Reports: , with Significant Other Occupation: Employed ED ROS GENERAL - Review of Systems Review Of Systems: See Below Constitutional: Reports: No Symptoms HEENT: Reports: No Symptoms Respiratory: Reports: No Symptoms Cardiovascular: Reports: No Symptoms Endocrine: Reports: No Symptoms GI/Abdominal: Reports: No Symptoms : Reports: No Symptoms Musculoskeletal: Reports: Leg Pain, Joint Pain Skin: Reports: No Symptoms Neurological: Reports: No Symptoms Psychiatric: Reports: No Symptoms Hematologic/Lymphatic: Reports: No Symptoms Immunologic: Reports: No Symptoms ED EXAM, GENERAL - Physical Exam Exam: See Below Exam Limited By: No Limitations General Appearance: Alert, WD/WN, No Apparent Distress Extremities: Normal Inspection, Other (Decreased ROM to L hip. yells out in discomfort with manipulation of the joint/palpation of the L inguinal area/lateral L hip area. No obvious deformity noted. CMS intact. 5/5 strength noted in lower extremities. ) Course - Vital Signs Last Recorded V/S: Last Vital Signs Temp 36.2 C 10/18/20 10:38 Pulse 73 10/18/20 11:56 Resp 12 10/18/20 11:56 BP 146/111 H 10/18/20 11:56 Pulse Ox 96 10/18/20 11:56 - Orders/Labs/Meds Meds: Medications Discontinued Medications Generic Name Dose Route Start Last Admin Trade Name Freq PRN Reason Stop Dose Admin Hydromorphone HCl 1 mg 10/18/20 10:49 10/18/20 10:57 Dilaudid IVPUSH 10/18/20 10:50 1 mg ONETIME ONE Administration Hydromorphone HCl 1 mg 10/18/20 11:19 10/18/20 11:35 Dilaudid IVPUSH 10/18/20 11:20 1 mg ONETIME ONE Administration - Re-Assessments/Exams Free Text/Narrative Re-Assessment/Exam: Pt. was given morphine 4mg IV and valium 5mg IV by EMS with no improvement in pain. She was subsequently given dilaudid 1mg IV for 2 doses in ER. 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 Departure - Departure Time of Disposition: 12:39 Disposition: Home, Self-Care 01 Clinical Impression: Hip pain, left, Osteoarthritis of left hip - Discharge Information Instructions: Acetaminophen; Hydrocodone tablets or capsules, Chronic Pain, Adult Referrals: Vivien Lawrence MD [Primary Care Provider] - Forms: ED Department Discharge Additional Instructions: Stop tramadol [place] 10/325mg 1 every 4-6 hours as needed for pain It appears that the discomfort is arising from your hip. Follow-up with Dr. Lawrence regarding an orthopedics referral/for further pain management. Sepsis Event Note (ED) - Evaluation Sepsis Screening Result: No Definite Risk - Focused Exam Vital Signs: Vital Signs Temp Pulse Resp BP Pulse Ox 10/18/20 11:56 73 12 146/111 H 96 10/18/20 10:38 36.2 C 86 18 171/114 H 98 - Assessment/Plan Plan: Stop tramadol [place] 10/325mg 1 every 4-6 hours as needed for pain It appears that the discomfort is arising from your hip. Follow-up with Dr. Lawrence regarding an orthopedics referral/for further pain management.
[2020-10-18 11:56] VITALS: BP 146/111; PULSE 73
== END 2020-10-18 12:29 | disposition home or self-care (01) ==
LOC: VM.ED 10:38
DX: M16.12 Unilateral primary osteoarthritis, left hip (principal); M06.9 Rheumatoid arthritis, unspecified; G25.81 Restless legs syndrome; I50.9 Heart failure, unspecified; Z88.6 Allergy status to analgesic agent; Z91.011 Allergy to milk products; Z88.8 Allergy status to other drugs, medicaments and biological substances; Z88.5 Allergy status to narcotic agent; Z79.82 Long term (current) use of aspirin; Z79.84 Long term (current) use of oral hypoglycemic drugs; Z79.899 Other long term (current) drug therapy; Z86.73 Personal history of transient ischemic attack (TIA), and cerebral infarction without residual deficits
CPT/HCPCS: 96374; 96376; 99284; 99284-25; J1170

== ENCOUNTER 2021-03-10 09:44 | Emergency (ER) | payer OTHER ==
[2021-03-10] MEDS ORDERED: HYDROmorphone 1 MG/ML Syringe IVPUSH ONE ×2 (09:55→11:01)
[2021-03-10] MEDS ORDERED: Sodium Chloride 0.9% 1,000 ML IV ONE (09:55)
[2021-03-10] MEDS ORDERED: Sodium Chloride 0.9% 10 ML Syringe FLUSH PRN (09:55)
[2021-03-10 10:29] LABS: CHLORIDE,CL 99 mmol/L (98-107); SODIUM,NA 142 mmol/L (136-145)
--- NOTE | 2021-03-10 10:42 | EDM.PDOC ---
ED HPI GENERAL MEDICAL PROBLEM - General Stated Complaint: back pain Time Seen by Provider: 03/10/21 10:05 Source of Information: Reports: Patient, EMS History Limitations: Reports: No Limitations - History of Present Illness INITIAL COMMENTS - FREE TEXT/NARRATIVE: Patient has chronic back issues, had a discectomy in October in the lumbar area and was doing fine for awhile. Over the last month or so she is having increased muscle spasm, pain in the back. She has an appointment in two days with her neurosurgeon. Last epidural spinal injection was a year ago, She gets IV injections for her RA and had one a month ago, not due for three months. She states she did not hurt herself, pain and muscle spasm has been gradual and has been taking tramadol for this. N o loss of bowel or bladder. She lives at home with her and is usually ambulatory. She states starting yesterday the pain and spasm in the low back with radiation to the right lateral knee ( chronic area) has been intractable and she has been laying in bed. She has not eaten, drank or urinated since then. She call EMS for transport. no medical intervention was done. She is diabetic, not checked a blood glucose en route. at the ED is 187. No perineal numbness Duration: Day(s): Location: Reports: Back Improves with: Reports: None Worsens with: Reports: Movement - Related Data Allergies Allergy/AdvReac Type Severity Reaction Status Date / Time aspirin Allergy Bronchospas Verified 10/18/20 10:55 ms Dairy Products Allergy Nausea Verified 10/18/20 10:55 methotrexate Allergy Other Verified 10/18/20 10:55 acetaminophen AdvReac Hypotension Verified 10/18/20 10:55 [From Darvocet-N] meperidine HCl [From Demerol] AdvReac Hypotension Verified 10/18/20 10:55 propoxyphene napsylate AdvReac Hypotension Verified 10/18/20 10:55 [From Darvocet-N] Home Meds: Home Meds Aspirin [Halfprin] 81 mg PO DAILY 12/26/16 [History] Ibuprofen 400 - 800 mg PO Q6HR PRN 12/26/16 [History] Metoprolol Succinate [Toprol XL] 25 mg PO DAILY 12/26/16 [History] Multivitamin [Multi-Vitamin Daily] 1 tab PO DAILY 12/26/16 [History] Pramipexole [Mirapex] 0.5 - 1 mg PO BEDTIME 12/26/16 [History] Venlafaxine [Effexor XR] 150 mg PO DAILY 12/26/16 [History] atorvaSTATin [Lipitor] 20 mg PO BEDTIME 12/26/16 [History] lisinopriL [Zestril] 40 mg PO DAILY 12/26/16 [History] Albuterol [IJD: Albuterol] 2.5 mg NEB QID 12/12/17 [History] Amitriptyline [Elavil] 100 - 150 mg PO BEDTIME PRN 12/12/17 [History] Furosemide [Lasix] 20 mg PO DAILY 12/12/17 [History] LORazepam [Ativan] 0.25 - 0.5 mg PO BEDTIME 12/12/17 [History] predniSONE [Prednisone] 5 mg PO ASDIRECTED 12/12/17 [History] metFORMIN [Glucophage XR] 500 mg PO WITHDINNER 06/08/18 [History] Past Medical History HEENT History: Reports: Allergic Rhinitis Other HEENT History: wears bilateral hearing aids Cardiovascular History: Reports: Heart Failure Other Cardiovascular History: coarctation of aorta,acute ischemic stroke Respiratory History: Reports: Sleep Apnea Other Respiratory History: allergic rhinitis,. 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 RLS. BURSITIS LEFT HIP. BILAT WRIST PAIN. POLYARTHRALGIA Neurological History: Reports: CVA, Migraines, Seizure Other Neuro History: restless leg syndrome,. H/O HEMIPARESIS. SONDYLOSIS CERVIAL REGOIN Psychiatric History: Reports: Anxiety, Depression Endocrine/Metabolic History: Reports: Osteopenia Hematologic History: Reports: None Immunologic History: Reports: None Oncologic (Cancer) History: Reports: None Dermatologic History: Reports: None - Infectious Disease History Infectious Disease History: Reports: None - Past Surgical History HEENT Surgical History: Reports: Other (See Below) Other HEENT Surgeries/Procedures: TYMPANOPLASTY Cardiovascular Surgical History: Reports: Other (See Below) Other Cardiovascular Surgeries/Procedures: BALLOON ANGIAPLASTY W REPAIR OF AORTIC VALVE GI Surgical History: Reports: Appendectomy, Cholecystectomy Female Surgical History: Reports: Hysterectomy Musculoskeletal Surgical History: Reports: Carpal Tunnel, Other (See Below) Other Musculoskeletal Surgeries/Procedures:: bunionectomy Social & Family History - Family History Cardiac: Reports: CAD Musculoskeletal: Reports: Arthritis Neurological: Reports: Dementia Oncologic: Reports: Breast, Colon - Living Situation & Occupation Living situation: Reports: , with Significant Other Occupation: Employed ED ROS GENERAL - Review of Systems Review Of Systems: See Below Constitutional: Reports: No Symptoms. Denies: Fever, Chills HEENT: Reports: No Symptoms Respiratory: Reports: No Symptoms. Denies: Shortness of Breath, Cough Cardiovascular: Reports: No Symptoms. Denies: Chest Pain, Dyspnea on Exertion Endocrine: Reports: No Symptoms. Denies: Fatigue GI/Abdominal: Reports: No Symptoms. Denies: Abdominal Pain, Anorexia, Hematemesis, Hematochezia, Melena : Reports: No Symptoms Musculoskeletal: Reports: Back Pain Skin: Reports: No Symptoms Neurological: Reports: Difficulty Walking (due to back pain). Denies: Paresthesia, Seizure Psychiatric: Reports: No Symptoms ED EXAM,LOWER BACK PAIN/INJURY - Physical Exam Exam: See Below Exam Limited By: No Limitations General Appearance: Alert, Moderate Distress Eye Exam: Bilateral Eye: EOMI, Normal Inspection, PERRL Ears: Normal External Exam Nose: Normal Inspection, Normal Mucosa Throat/Mouth: Normal Inspection, Normal Lips, Normal Teeth, Other (dry mucous membranes) Head: Atraumatic Neck: Normal Inspection Respiratory/Chest: Decreased Breath Sounds, Crackles (bases, on O2) Cardiovascular: Regular Rate, Rhythm GI/Abdominal: Normal Bowel Sounds Back Exam: Decreased Range of Motion (difficult to move herself and roll over but can acheive this with pain), Muscle Spasm, Paraspinal Tenderness, Other (well healed surgical incision, paraspinal muscle spasm in the lumbar area bilaterally. no lesions or rashes no midline tenderness.). No: CVA Tenderness (L), CVA Tenderness (R), Vertebral Tenderness Extremities: Other (normal rom and strength in the lower extremities to knee extension and flexion but causes pain. NOrmal hip flexion, foot dorsi and plantar flexion. NOrmal sensation distally bilaterally in the legs) Neurological: Alert, Normal Mood/Affect, Normal Dorsiflexion, CN II-XII Intact, Normal Plantar Flexion, No Motor/Sensory Deficits, Oriented x 3 Course - Orders/Labs/Meds Orders: Active Orders 24 hr Category Date Time Status NS + KCl 20mEq/L [Normal Saline with 20 mEq KCl] 1,000 Med 03/10/21 11:30 Active ml IV ASDIRECTED Sodium Chloride 0.9% [Saline Flush] Med 03/10/21 09:55 Active 10 ml FLUSH ASDIRECTED PRN Peripheral IV Insertion Adult [OM.PC] Routine Oth 03/10/21 09:55 Ordered Medication Orders Potassium Chloride/Sodium Chloride (Normal Saline With 20 Meq Kcl) 1,000 mls @ 1,000 mls/hr IV ASDIRECTED CHRIS Last Admin: 03/10/21 11:37 Dose: 1,000 mls/hr Documented by: SHIVANI Sodium Chloride (Sodium Chloride 0.9% 10 Ml Syringe) 10 ml FLUSH ASDIRECTED PRN PRN Reason: Keep Vein Open Labs: Laboratory Tests 03/10/21 03/10/21 03/10/21 Range/Units 09:48 09:56 09:56 WBC 9.3 (4.0-10.0) x10^3/uL RBC 4.80 (4.00-5.50) x10^6/uL Hgb 14.5 D (12.0-16.0) g/dL Hct 42.2 (33.0-47.0) % MCV 87.9 D (78.0-93.0) fL MCH 30.2 (26.0-32.0) pg MCHC 34.4 (32.0-36.0) g/dL RDW Coeff of [place] 15.7 H (10.0-15.0) % Plt Count 297 (130-400) x10^3/uL Neut % (Auto) 74.1 (50.0-80.0) % Lymph % (Auto) 11.7 L (25.0-50.0) % [place] % (Auto) 12.3 H (2.0-11.0) % Eos % (Auto) 1.5 (0.0-4.0) % Baso % (Auto) 0.4 (0.2-1.2) % ESR 27 H (0-20) mm/hr Sodium 142 (136-145) mmol/L Potassium 3.0 L (3.5-5.1) mmol/L Chloride 99 (98-107) mmol/L Carbon Dioxide 35 H (21-32) mmol/L Anion Gap 11.0 (5-15) mmol/L BUN 16 (7-18) mg/dL Creatinine 0.8 (0.55-1.02) mg/dL Est Cr Clr Drug Dosing TNP Estimated GFR (MDRD) > 60 Glucose 187 H (70-99) mg/dL POC Glucose 183 H (70-99) mg/dL Calcium 9.0 (8.5-10.1) mg/dL Corrected Calcium 9.6 (8.5-10.1) mg/dL Total Bilirubin 0.9 (0.2-1.0) mg/dL AST 30 (15-37) U/L ALT 30 (14-59) U/L Alkaline Phosphatase 115 (46-116) U/L C-Reactive Protein 5.0 H (<=0.9) mg/dL Total Protein 6.8 (6.4-8.2) g/dL Albumin 3.2 L (3.4-5.0) g/dL Globulin 3.6 Albumin/Globulin Ratio 0.89 Meds: Medications Generic Name Dose Route Start Last Admin Trade Name Freq PRN Reason Stop Dose Admin Potassium Chloride/Sodium Chloride 1,000 mls @ 1,000 mls/hr 03/10/21 11:30 03/10/21 11:37 Normal Saline With 20 Meq Kcl IV 1,000 mls/hr ASDIRECTED CHRIS Administration Sodium Chloride 10 ml 03/10/21 09:55 Sodium Chloride 0.9% 10 Ml Syringe FLUSH ASDIRECTED PRN Keep Vein Open Discontinued Medications Generic Name Dose Route Start Last Admin Trade Name Freq PRN Reason Stop Dose Admin Diazepam 5 mg 03/10/21 09:55 03/10/21 10:07 Diazepam 10 Mg/2 Ml Syringe IVPUSH 03/10/21 09:56 5 mg STAT ONE Administration Diazepam 5 mg 03/10/21 11:01 03/10/21 11:18 Diazepam 10 Mg/2 Ml Syringe IVPUSH 03/10/21 11:02 5 mg STAT ONE Administration Hydromorphone HCl 1 mg 03/10/21 09:55 03/10/21 10:08 Hydromorphone 1 Mg/Ml Syringe IVPUSH 03/10/21 09:56 1 mg ONETIME ONE Administration Hydromorphone HCl 1 mg 03/10/21 11:01 03/10/21 11:17 Hydromorphone 1 Mg/Ml Syringe IVPUSH 03/10/21 11:02 1 mg ONETIME ONE Administration Sodium Chloride 1,000 mls @ 999 mls/hr 03/10/21 09:55 03/10/21 10:09 Normal Saline IV 03/10/21 10:55 999 mls/hr ONETIME ONE Administration Oxycodone HCl 5 mg 03/10/21 11:01 03/10/21 11:18 Oxycodone 5 Mg Tab PO 03/10/21 11:02 5 mg ONETIME ONE Administration Potassium Chloride 40 meq 03/10/21 11:02 03/10/21 11:17 Potassium Chloride 20 Meq Tab.Er PO 03/10/21 11:03 40 meq ONETIME ONE Administration Potassium Chloride 20 meq 03/10/21 11:02 03/10/21 11:17 Potassium Chloride 10% 20 Meq/15 Ml Soln 15 Ml Ud Cup PO 03/10/21 11:03 20 meq ONETIME ONE Administration - Re-Assessments/Exams Free Text/Narrative Re-Assessment/Exam: 03/10/21 11:04 Patient needs a new MRI, no neurological or strength deficit today, just pain. Will check labs due to comorbid conditions. Will give IV fluids due to not eating or drinking for a day, valium 5 mg ivp and dilaudid 1 mg IVP. recheck patient, was slightly better, now worse with trying to sit her up. repeat dose of valium 5 mg IVP, dilaudid 1 mg IVP and oxycodone 5 mg PO. potassium is low, will give po 60 meq potassium, and 20 meq potassium IV 03/10/21 11:31 Discussed with , needs MRI, he is prepared to take her to [place] via car if able to control her pain enough to sit. No indications for plain film or CT. no trauma, no deficit 03/10/21 12:29 able to get up with assist of two to the commode., Will send by pov to [place], desires to do this and patient willing. Departure - Departure Time of Disposition: 12:28 Disposition: Home, Self-Care 01 Clinical Impression: Back pain, Hypokalemia - Discharge Information *PRESCRIPTION DRUG MONITORING PROGRAM REVIEWED*: Not Applicable *COPY OF PRESCRIPTION DRUG MONITORING REPORT IN PATIENT MATTHEW: Not Applicable Referrals: Vivien Lawrence MD [Primary Care Provider] - Additional Instructions: You had labs checked today, potassium was low and you were given IV potassium and oral. You were given dilaudid IV, valium IV, and oxycodone. TAke yourself to [place] with the help of your for MRI and evaluation - My Orders Last 24 Hours: My Active Orders 03/10/21 09:55 Sodium Chloride 0.9% [Saline Flush] 10 ml FLUSH ASDIRECTED PRN Peripheral IV Insertion Adult [OM.PC] Routine 03/10/21 11:30 NS + KCl 20mEq/L [Normal Saline with 20 mEq KCl] 1,000 ml IV ASDIRECTED - Assessment/Plan Last 24 Hours: My Active Orders 03/10/21 09:55 Sodium Chloride 0.9% [Saline Flush] 10 ml FLUSH ASDIRECTED PRN Peripheral IV Insertion Adult [OM.PC] Routine 03/10/21 11:30 NS + KCl 20mEq/L [Normal Saline with 20 mEq KCl] 1,000 ml IV ASDIRECTED
[2021-03-10] MEDS ORDERED: oxyCODONE 5 MG Tab PO ONE (11:01)
[2021-03-10] MEDS ORDERED: Potassium Chloride 20 MEQ Tab.ER PO ONE (11:02)
[2021-03-10] MEDS ORDERED: Potassium Chloride 10% 20 MEQ/15 ML Soln 15 ML UD Cup PO ONE (11:02)
[2021-03-10] MEDS ORDERED: NS + KCl 20mEq/L 1,000 ML IV SCH (11:30)
[2021-03-10] MEDS ORDERED: HYDROmorphone 1 MG/ML Syringe SUBCUT ONE (12:33)
[2021-03-10 16:34] VITALS: BP 122/62; PULSE 104
== END 2021-03-10 12:44 | disposition home or self-care (01) ==
LOC: VM.ED 09:44
DX: M54.5 Low back pain (principal); E87.6 Hypokalemia; I50.9 Heart failure, unspecified; Z79.82 Long term (current) use of aspirin; Z88.8 Allergy status to other drugs, medicaments and biological substances; Z91.011 Allergy to milk products; Z88.5 Allergy status to narcotic agent
CPT/HCPCS: 80053; 82947; 85025; 85652; 86140; 96372; 96374; 96375; 96376; 99283; 99284-25; A9270-GY; J1170; J3360; J3480; J7030

== ENCOUNTER 2021-06-16 15:58 | Emergency (ER) | payer OTHER ==
--- NOTE | 2021-06-16 16:33 | EDM.PDOC ---
ED HPI GENERAL MEDICAL PROBLEM - General Chief Complaint: Lower Extremity Injury/Pain Stated Complaint: LEG INJURY Time Seen by Provider: 06/16/21 16:00 Source of Information: Reports: Patient History Limitations: Reports: No Limitations - History of Present Illness INITIAL COMMENTS - FREE TEXT/NARRATIVE: [employer] with complaints of a left ankle injury. Patient states that she was walking out of a restaurant last night and tripped on her sandal causing her left ankle to roll. She states that she was able to walk on it after the injury however she has states that it has been eliciting more pain and discomfort. She has not taken any Tylenol or ibuprofen since the injury. She has been elevating and icing it intermittently but not as frequently as she should. Patient states that she has not had any other major injuries or complaints to that lower extremity. Patient denies any further injuries other than abrasion to her right knee from the fall. She denies hitting her head, loss of consciousness, shortness of breath, dizziness, lightheadedness, memory concerns, or peripheral edema. Duration: Constant Location: Reports: Lower Extremity, Left Quality: Reports: Throbbing Severity: Moderate Improves with: Reports: Rest Worsens with: Reports: Movement Context: Reports: Activity Associated Symptoms: Reports: No Other Symptoms - Related Data Allergies Allergy/AdvReac Type Severity Reaction Status Date / Time aspirin Allergy Bronchospas Verified 06/16/21 16:38 ms Dairy Products Allergy Nausea Verified 06/16/21 16:38 methotrexate Allergy Other Verified 06/16/21 16:38 acetaminophen AdvReac Hypotension Verified 06/16/21 16:38 [From Darvocet-N] meperidine HCl [From Demerol] AdvReac Hypotension Verified 06/16/21 16:38 propoxyphene napsylate AdvReac Hypotension Verified 06/16/21 16:38 [From Darvocet-N] Home Meds: Home Meds Aspirin [Halfprin] 81 mg PO DAILY 12/26/16 [History] Ibuprofen 400 - 800 mg PO Q6HR PRN 12/26/16 [History] Metoprolol Succinate [Toprol XL] 25 mg PO DAILY 12/26/16 [History] Multivitamin [Multi-Vitamin Daily] 1 tab PO DAILY 12/26/16 [History] Pramipexole [Mirapex] 0.5 - 1 mg PO BEDTIME 12/26/16 [History] Venlafaxine [Effexor XR] 150 mg PO DAILY 12/26/16 [History] atorvaSTATin [Lipitor] 20 mg PO BEDTIME 12/26/16 [History] lisinopriL [Zestril] 40 mg PO DAILY 12/26/16 [History] Albuterol [IJD: Albuterol] 2.5 mg NEB QID 12/12/17 [History] Amitriptyline [Elavil] 100 - 150 mg PO BEDTIME PRN 12/12/17 [History] Furosemide [Lasix] 20 mg PO DAILY 12/12/17 [History] LORazepam [Ativan] 0.25 - 0.5 mg PO BEDTIME 12/12/17 [History] metFORMIN [Glucophage XR] 500 mg PO WITHDINNER 06/08/18 [History] Past Medical History HEENT History: Reports: Allergic Rhinitis Other HEENT History: wears bilateral hearing aids Cardiovascular History: Reports: Heart Failure Other Cardiovascular History: coarctation of aorta,acute ischemic stroke Respiratory History: Reports: Sleep Apnea Other Respiratory History: allergic rhinitis,. RESTRICTIVE AIRWAY DISEASE Gastrointestinal History: Reports: Irritable Bowel Syndrome, Other (See Below) Other Gastrointestinal History: FM HX COLON CA Genitourinary History: Reports: None Other SCALLOP CUTTER History: post menopausal Musculoskeletal History: Reports: Arthritis, RA Other Musculoskeletal History: BUNION. RLS. BURSITIS LEFT HIP. BILAT WRIST PAIN. POLYARTHRALGIA Neurological History: Reports: CVA, Migraines, Seizure Other Neuro History: restless leg syndrome,. H/O HEMIPARESIS. SONDYLOSIS CERVIAL REGOIN Psychiatric History: Reports: Anxiety, Depression Endocrine/Metabolic History: Reports: Osteopenia Hematologic History: Reports: None Immunologic History: Reports: None Oncologic (Cancer) History: Reports: None Dermatologic History: Reports: None - Infectious Disease History Infectious Disease History: Reports: None - Past Surgical History HEENT Surgical History: Reports: Other (See Below) Other HEENT Surgeries/Procedures: TYMPANOPLASTY Cardiovascular Surgical History: Reports: Other (See Below) Other Cardiovascular Surgeries/Procedures: BALLOON ANGIAPLASTY W REPAIR OF AORTIC VALVE GI Surgical History: Reports: Appendectomy, Cholecystectomy Female Surgical History: Reports: Hysterectomy Musculoskeletal Surgical History: Reports: Carpal Tunnel, Other (See Below) Other Musculoskeletal Surgeries/Procedures:: bunionectomy Social & Family History - Family History Cardiac: Reports: CAD Musculoskeletal: Reports: Arthritis Neurological: Reports: Dementia Oncologic: Reports: Breast, Colon - Living Situation & Occupation Living situation: Reports: , with Significant Other Occupation: Employed ED ROS GENERAL - Review of Systems Review Of Systems: Comprehensive ROS is negative, except as noted in HPI. Constitutional: Reports: No Symptoms HEENT: Reports: No Symptoms Respiratory: Reports: No Symptoms Cardiovascular: Reports: No Symptoms Endocrine: Reports: No Symptoms GI/Abdominal: Reports: No Symptoms : Reports: No Symptoms Musculoskeletal: Reports: No Symptoms Neurological: Reports: No Symptoms Psychiatric: Reports: No Symptoms Hematologic/Lymphatic: Reports: No Symptoms Immunologic: Reports: No Symptoms ED EXAM, GENERAL - Physical Exam Exam: See Below Exam Limited By: No Limitations General Appearance: Alert, WD/WN, No Apparent Distress Head: Atraumatic, Normocephalic Respiratory/Chest: No Respiratory Distress, Lungs Clear, Normal Breath Sounds, No Accessory Muscle Use, Chest Non-Tender Cardiovascular: Normal Peripheral Pulses, Regular Rate, Rhythm, No Edema Back Exam: Normal Inspection, Full Range of Motion Extremities: Normal Inspection, Normal Capillary Refill, Slow Capillary Refill (both feet- chronic issues no acute changes), Limited Range of Motion (left foot- tenderness with palpation lateral aspect of ankle. moderate swelling over the malleolus. CMS intact and pulses present ) Neurological: Alert, Oriented, Normal Gait Psychiatric: Normal Affect, Normal Mood Skin Exam: Warm, Dry, Intact Course - Vital Signs Last Recorded V/S: Last Vital Signs Temp 35.7 C L 06/16/21 16:25 Pulse 110 H 06/16/21 17:15 Resp 18 06/16/21 17:15 BP Pulse Ox 99 06/16/21 17:15 Departure - Departure Time of Disposition: 17:30 Disposition: Home, Self-Care 01 Condition: Good Clinical Impression: Avulsion fracture of ankle Qualifiers: Encounter type: initial encounter Fracture type: closed Laterality: left Qualified Code(s): S82.892A - Other fracture of left lower leg, initial encounter for closed fracture - Discharge Information *PRESCRIPTION DRUG MONITORING PROGRAM REVIEWED*: Not Applicable *COPY OF PRESCRIPTION DRUG MONITORING REPORT IN PATIENT MATTHEW: Not Applicable Instructions: Nondisplaced Fibular Ankle Fracture Treated With Immobilization Referrals: Vivien Lawrence MD [Primary Care Provider] - Forms: ED Department Discharge Additional Instructions: 1. Rest 2. wear splint for to help with any pain or discomfort until cleared by orthopedic 3. Can use tylenol and ibuprofen as needed for pain and discomfort 4. Diet as tolerated 5. Activity as tolerated 6. Elevated the injured area above the level of the heart to decrease swelling and discomfort. 7. Use ice 3-4 times a day at 20-minute intervals to help with any swelling and discomfort 8. Follow-up with your primary care provider symptoms continue or to progress 9. Follow with any questions or concerns 10. Discharge information has been provided regarding your injury Sepsis Event Note (ED) - Focused Exam Vital Signs: Vital Signs Temp Pulse Resp Pulse Ox 06/16/21 17:15 110 H 18 99 06/16/21 16:25 35.7 C L 113 H 18 99 - Assessment/Plan Assessment:: 1.ankle injury 2. Avulsed fracture fragment of the lateral gutter on te ankle Plan: 1. X-ray completed in the emergency department results reviewed with the patient 2. Ice Applied to the affected limb 3. Medication offered to the patient 4. Education regarding splinting, activity, [id number] medications, and follow-up care provided. 5. All questions and concerns addressed with the patient prior to discharge
--- NOTE | 2021-06-16 17:20 | CR ---
[id number] RAD/RAD Ankle Left 3V Min Exam: RAD Ankle Left 3V Min Indication:FALL. PAIN ON LATERAL AREA OF JOINT. Comparison: No prior imaging for comparison. Discussion/Impression: Age indeterminant 4 x 3 mm avulsed fracture fragment in the lateral gutter of the ankle mortise. No evidence of ankle mortise instability. Joint spaces are well-preserved. Normal alignment is maintained. Nav Cheek MD 06/16/21 [id number] Thank you for allowing us to participate in the care of your patient.
[2021-06-16 17:23] VITALS: PULSE 110
== END 2021-06-16 17:48 | disposition home or self-care (01) ==
LOC: VM.ED 15:58
DX: S82.892A Other fracture of left lower leg, initial encounter for closed fracture (principal); I50.9 Heart failure, unspecified; Z91.011 Allergy to milk products; Z79.82 Long term (current) use of aspirin; Z88.8 Allergy status to other drugs, medicaments and biological substances; Z79.84 Long term (current) use of oral hypoglycemic drugs; Z86.73 Personal history of transient ischemic attack (TIA), and cerebral infarction without residual deficits; X50.1XXA Overexertion from prolonged static or awkward postures, initial encounter; W18.49XA Other slipping, tripping and stumbling without falling, initial encounter; Y93.01 Activity, walking, marching and hiking
CPT/HCPCS: 73610-LT; 99283

== ENCOUNTER 2021-09-05 12:24 | Inpatient (IN) | payer OTHER ==
[2021-09-05 13:47] LABS: CHLORIDE,CL 98 mmol/L (98-107); SODIUM,NA 137 mmol/L (136-145)
[2021-09-05 13:49] LABS: PTT,PARTIAL THROMBOPLSTIN TIME 25.5 SEC (25.6-32.8)
[2021-09-05 13:51] LABS: ANION GAP 13.4 mmol/L (5-15)
[2021-09-05] MEDS ORDERED: Lactated Ringers 1,000 ML IV SCH ×2 (14:15→18:00)
[2021-09-05] MEDS ORDERED: Iopamidol 755 Mg/ML 100 ML Bottle IVPUSH ONE (15:18)
[2021-09-05] MEDS ORDERED: methylPREDNISolone Sodium Succinate 125 MG/2 ML SDV IVPUSH PRN (17:08)
[2021-09-05] MEDS ORDERED: EPINEPHrine 1 MG/1 ML Amp IM PRN (17:08)
[2021-09-05] MEDS ORDERED: Famotidine 20 MG/2 ML SDV IVPUSH PRN (17:08)
[2021-09-05] MEDS ORDERED: diphenhydrAMINE 50 MG/ML SDV IVPUSH PRN (17:08)
[2021-09-05] MEDS ORDERED: Sodium Chloride 0.9% 10 ML Syringe FLUSH SCH (17:15)
[2021-09-05] MEDS ORDERED: Albuterol 0.083% 2.5 MG/3 ML Neb Soln NEB PRN (17:45)
[2021-09-05] MEDS ORDERED: Bamlanivimab 700 MG, ETESEVIMAB 1,400 MG in Sodium Chloride 0.9% 100 ML IV ONE (18:00)
[2021-09-05] MEDS ORDERED: Cyclobenzaprine 10 MG Tab PO PRN (18:23)
[2021-09-05] MEDS ORDERED: Albuterol HFA 18 Gm Inhaler INH PRN (18:23)
[2021-09-05] MEDS ORDERED: Alendronate 70 MG Tab PO SCH (18:30)
[2021-09-05] MEDS ORDERED: LORazepam 0.5 MG Tab PO PRN (19:19)
[2021-09-05] MEDS: Latanoprost 0.005% Ophth Soln 2.5 ML Bottle EYEBOTH SCH (20:08)
[2021-09-05] MEDS: glipiZIDE 10 MG Tab.ER PO SCH (20:08)
[2021-09-05] MEDS: Pregabalin 25 MG Cap PO SCH (20:08)
[2021-09-05] MEDS: valACYclovir 1,000 MG Tab PO SCH (20:09)
[2021-09-05] MEDS: Heparin Sodium 5,000 Units/ML Vial SUBCUT SCH (20:09)
[2021-09-05] MEDS: atorvaSTATin 10 MG Tab PO SCH (20:09)
--- NOTE | 2021-09-05 20:31 | EDM.PDOC ---
ED HPI GENERAL MEDICAL PROBLEM - General Chief Complaint: General Stated Complaint: hypotensive Time Seen by Provider: 09/05/21 12:45 Source of Information: Reports: Patient History Limitations: Reports: No Limitations - History of Present Illness INITIAL COMMENTS - FREE TEXT/NARRATIVE: Patient comes emergency department today from the outpatient infusion center following what appears to be a hypotensive episode with an IV start. This patient who has significant history pulmonary hypertension coarctation of the aorta ALICIA chronic oxygen use due to most likely pulmonary fibrosis from methotrexate chronic hypoxic respiratory failure mixed hyperlipidemia type 2 diabetes rheumatoid arthritis immunocompromisation due to long-term DMARD therapy. This patient on 08/31/2021 started having shortness of breath cough fever. She was diagnosed with Covid. She came to the outpatient infusion center today to receive monoclonal antibody therapy. She has had problems with IV starts in the past. She has not eaten much over the past couple of days. She has drank absolutely no fluid. She has had one small void today early this morning. Had minimal urinary output yesterday. When they started her IV she became what appeared to be syncopal and dropped her blood pressures into the 50s. Rapid response was called she was brought to the emergency department. Upon arrival the patient is alert. She does complain of some mild discomfort in her chest. No shortness of breath. She does complain of weak feeling lightheaded and fatigue. She has no abdominal pain nausea or vomiting. No hematuria dysuria urinary frequency. No black or tarry stools. - Related Data Allergies Allergy/AdvReac Type Severity Reaction Status Date / Time aspirin Allergy Bronchospas Verified 09/05/21 16:11 ms Dairy Products Allergy Nausea Verified 09/05/21 16:11 gabapentin Allergy Other Verified 09/05/21 16:11 methotrexate Allergy Other Verified 09/05/21 16:11 acetaminophen AdvReac Hypotension Verified 09/05/21 16:11 [From Darvocet-N] meperidine HCl [From Demerol] AdvReac Hypotension Verified 09/05/21 16:11 propoxyphene napsylate AdvReac Hypotension Verified 09/05/21 16:11 [From Darvocet-N] Home Meds: Home Meds Aspirin [Halfprin] 81 mg PO DAILY 12/26/16 [History] Ibuprofen 400 - 800 mg PO Q6HR PRN 12/26/16 [History] Metoprolol Succinate [Toprol XL] 25 mg PO DAILY 12/26/16 [History] Multivitamin [Multi-Vitamin Daily] 1 tab PO DAILY 12/26/16 [History] atorvaSTATin [Lipitor] 40 mg PO BEDTIME 12/26/16 [History] Furosemide [Lasix] 20 mg PO BEDTIME 12/12/17 [History] LORazepam [Ativan] 0.25 - 0.5 mg PO BEDTIME 12/12/17 [History] Albuterol Sulfate [Albuterol Sulfate Hfa] 2 puff IH Q4H PRN 09/05/21 [History] Alendronate Sodium [Fosamax] 70 mg PO Q7D 09/05/21 [History] Alendronate Sodium/Vitamin D3 [Fosamax Plus D 70 mg-2800 Unit] 1 each PO ASDIRECTED 09/05/21 [History] Calcium Carbonate/Vitamin D3 [Calcium 600-Vit D3 800 Tablet] 1 each PO DAILY 09/05/21 [History] Calcium Carbonate/Vitamin D3 [Calcium Carbonate/Vitamin D 600 MG-200 Unit] 1 tab PO BID 09/05/21 [History] Cyclobenzaprine [Flexeril] 10 mg PO TID PRN 09/05/21 [History] DULoxetine [Cymbalta] 60 mg PO DAILY 09/05/21 [History] Dulaglutide [Trulicity] 0.75 mg SQ Q7D 09/05/21 [History] Furosemide [Lasix] 40 mg PO DAILY 09/05/21 [History] Latanoprost [Xalatan] 1 drop EYEBOTH BEDTIME 09/05/21 [History] Leflunomide [Arava] 10 mg PO DAILY 09/05/21 [History] Losartan Potassium 100 mg PO DAILY 09/05/21 [History] Meloxicam [Mobic] 7.5 mg PO DAILY 09/05/21 [History] Naloxone HCl [Narcan] 4 mg NS ASDIRECTED 09/05/21 [History] Pantoprazole Sodium [Protonix] 40 mg PO DAILY 09/05/21 [History] Pregabalin [Lyrica] 75 mg PO BID 09/05/21 [History] Spironolactone [Aldactone] 50 mg PO DAILY 09/05/21 [History] glipiZIDE [Glipizide ER] 10 mg PO BID 09/05/21 [History] ondansetron HCL [Zofran] 4 mg PO TID PRN 09/05/21 [History] prednisoLONE [Millipred] 5 mg PO DAILY 09/05/21 [History] valACYclovir [Valtrex] 1,000 mg PO BID 09/05/21 [History] Past Medical History HEENT History: Reports: Allergic Rhinitis Other HEENT History: wears bilateral hearing aids Cardiovascular History: Reports: Heart Failure Other Cardiovascular History: coarctation of aorta,acute ischemic stroke Respiratory History: Reports: Sleep Apnea Other Respiratory History: allergic rhinitis,. 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 RLS. BURSITIS LEFT HIP. BILAT WRIST PAIN. POLYARTHRALGIA Neurological History: Reports: CVA, Migraines, Seizure Other Neuro History: restless leg syndrome,. H/O HEMIPARESIS. SONDYLOSIS CERVIAL REGOIN Psychiatric History: Reports: Anxiety, Depression Endocrine/Metabolic History: Reports: Osteopenia Hematologic History: Reports: None Immunologic History: Reports: None Oncologic (Cancer) History: Reports: None Dermatologic History: Reports: None - Infectious Disease History Infectious Disease History: Reports: None, Novel Coronavirus - Past Surgical History HEENT Surgical History: Reports: Other (See Below) Other HEENT Surgeries/Procedures: TYMPANOPLASTY Cardiovascular Surgical History: Reports: Other (See Below) Other Cardiovascular Surgeries/Procedures: BALLOON ANGIAPLASTY W REPAIR OF AORTIC VALVE GI Surgical History: Reports: Appendectomy, Cholecystectomy Female Surgical History: Reports: Hysterectomy Musculoskeletal Surgical History: Reports: Carpal Tunnel, Other (See Below) Other Musculoskeletal Surgeries/Procedures:: bunionectomy Social & Family History - Family History Family Medical History: Unobtainable Cardiac: Reports: CAD Musculoskeletal: Reports: Arthritis Neurological: Reports: Dementia Oncologic: Reports: Breast, Colon - Tobacco Use Tobacco Use Status *Q: Former Tobacco User Years of Tobacco use: 40 Used Tobacco, but Quit: Yes Month/Year Tobacco Last Used: 09/2015 Second Hand Smoke Exposure: No - Caffeine Use Caffeine Use: Reports: Coffee - Alcohol Use Number of Drinks Per Day: 1 - Recreational Drug Use Recreational Drug Use: No - Living Situation & Occupation Living situation: Reports: , with Significant Other Occupation: Employed ED ROS GENERAL - Review of Systems Review Of Systems: Comprehensive ROS is negative, except as noted in HPI. ED EXAM, GENERAL - Physical Exam Exam: See Below Exam Limited By: No Limitations General Appearance: Alert, WD/WN, Obese Eye Exam: Bilateral Eye: EOMI Ears: Normal External Exam, Normal TMs Nose: Normal Inspection, Normal Mucosa Throat/Mouth: Normal Inspection, Normal Lips, Normal Oropharynx, Normal Voice Head: Atraumatic, Normocephalic Neck: Normal Inspection, Supple, Non-Tender Respiratory/Chest: No Respiratory Distress, Lungs Clear, Normal Breath Sounds, No Accessory Muscle Use, Chest Non-Tender Cardiovascular: Normal Peripheral Pulses, Regular Rate, Rhythm Peripheral Pulses: 1+: Radial (L), Radial (R) GI/Abdominal: Normal Bowel Sounds, Soft, Non-Tender (Female) Exam: Deferred Rectal (Female) Exam: Deferred Back Exam: Normal Inspection, Full Range of Motion Extremities: Normal Inspection, Normal Range of Motion, Non-Tender, No Pedal Edema, Slow Capillary Refill Neurological: Alert, Oriented, CN II-XII Intact, Normal Cognition, No Motor/Sensory Deficits Psychiatric: Anxious Skin Exam: Dry, Intact, Cool, Pallor Lymphatic: No Adenopathy Course - Vital Signs Last Recorded V/S: Last Vital Signs Temp 96 F L 09/07/21 06:20 Pulse 69 09/07/21 06:20 Resp 18 09/07/21 06:20 BP 131/60 09/07/21 06:20 Pulse Ox 99 09/07/21 06:20 - Orders/Labs/Meds Orders: Medication Orders Acetaminophen (Acetaminophen 325 Mg Tab) 650 mg PO Q4H PRN PRN Reason: Pain (mild 1-3) Last Admin: 09/06/21 09:54 Dose: 650 mg Documented by: CHE Acetaminophen/Codeine Phosphate (Acetaminophen/Codeine 300-30 Mg Tab) 1 tab PO Q4H PRN PRN Reason: Pain Albuterol (Albuterol 0.083% 2.5 Mg/3 Ml Neb Soln) 2.5 mg NEB Q4HR PRN PRN Reason: Cough Albuterol (Albuterol Hfa 18 Gm Inhaler) 0 gm INH Q4H PRN PRN Reason: shortness of breath Aspirin (Aspirin 81 Mg Tab.Ec) 162 mg PO DAILY [facility] Last Admin: 09/06/21 09:50 Dose: 162 mg Documented by: CHE Atorvastatin Calcium (Atorvastatin 10 Mg Tab) 40 mg PO BEDTIME [facility] Last Admin: 09/06/21 20:58 Dose: 40 mg Documented by: Admin: 09/05/21 20:09 Dose: 40 mg Documented by: DONNA Cholecalciferol (Cholecalciferol (Vitamin D3) 25 Mcg Tab) 25 mcg PO DAILY [facility] Last Admin: 09/06/21 13:46 Dose: 25 mcg Documented by: CHE Cyclobenzaprine HCl (Cyclobenzaprine 10 Mg Tab) 10 mg PO TID PRN PRN Reason: Muscle Spasm - Painful Last Admin: 09/05/21 20:09 Dose: 10 mg Documented by: DONNA Dextrose/Water (50% Dextrose In Water 50 Ml Syringe) 50 ml IV ASDIRECTED PRN PRN Reason: Hypoglycemia Dextrose/Water (50% Dextrose In Water 50 Ml Syringe) 50 ml IVPUSH ASDIRECTED PRN PRN Reason: Hypoglycemia Duloxetine HCl (Duloxetine 60 Mg Cap) 60 mg PO DAILY [facility] Last Admin: 09/06/21 09:49 Dose: 60 mg Documented by: CHE Enoxaparin Sodium (Enoxaparin 40 Mg/0.4 Ml Syringe) 40 mg SUBCUT Q24H [facility] Last Admin: 09/06/21 20:50 Dose: 40 mg Documented by: ALMA Furosemide (Furosemide 40 Mg Tab) 40 mg PO DAILY [facility] Last Admin: 09/06/21 18:58 Dose: 40 mg Documented by: CHE Glucagon (Glucagon,Human Recombinant 1 Mg Vial) 1 mg IM ASDIRECTED PRN PRN Reason: Hypoglycemia Latanoprost (Latanoprost 0.005% Ophth Soln 2.5 Ml Bottle) 0 ml EYEBOTH BEDTIME [facility] Last Admin: 09/06/21 20:58 Dose: 1 drop Documented by: Admin: 09/05/21 20:08 Dose: 1 drop Documented by: DNONA Loperamide HCl (Loperamide 2 Mg Cap) 2 mg PO Q4H PRN PRN Reason: Diarrhea Last Admin: 09/06/21 13:46 Dose: 2 mg Documented by: CHE Lorazepam (Lorazepam 0.5 Mg Tab) 0.25 - 0.5 mg PO BEDTIME PRN PRN Reason: Insomnia Last Admin: 09/05/21 23:33 Dose: 0.5 mg Documented by: DONNA Metoprolol Succinate (Metoprolol Succinate 25 Mg Tab.Er) 25 mg PO DAILY [facility] Last Admin: 09/06/21 09:58 Dose: 25 mg Documented by: CHE Multivitamins/Minerals (Multivitamins With Iron/Calcium/Folic Acid/Minerals Tab) 1 tab PO DAILY [facility] Last Admin: 09/06/21 09:53 Dose: 1 tab Documented by: CHE Non-Formulary Medication (Calcium Carbonate/Vitamin D3 [Calcium 600-Vit D3 800 Tablet]) 1 each PO DAILY [facility] Non-Formulary Medication (Calcium Carbonate/Vitamin D3) 1 tab PO BID [facility] Ondansetron HCl (Ondansetron 4 Mg Tab.Dis) 4 mg PO TID PRN PRN Reason: Nausea Pantoprazole Sodium (Pantoprazole 40 Mg Tab.Cr) 40 mg PO ACBREAKFAST [facility] Last Admin: 09/07/21 06:06 Dose: 40 mg Documented by: Admin: 09/06/21 06:28 Dose: 40 mg Documented by: DONNA Prednisone (Prednisone 5 Mg Tab) 5 mg PO WITHBREAKFAST [facility] Pregabalin (Pregabalin 25 Mg Cap) 75 mg PO BID [facility] Last Admin: 09/06/21 20:51 Dose: 75 mg Documented by: Admin: 09/06/21 09:48 Dose: 75 mg Documented by: Admin: 09/05/21 20:08 Dose: 75 mg Documented by: DONNA Sodium Chloride (Sodium Chloride 0.9% 10 Ml Syringe) 30 ml FLUSH ASDIRECTED [facility] Spironolactone (Spironolactone 25 Mg Tab) 50 mg PO DAILY [facility] Last Admin: 09/06/21 09:49 Dose: 50 mg Documented by: CHE Tramadol HCl (Tramadol 50 Mg Tab) 50 mg PO Q4H PRN PRN Reason: Pain Last Admin: 09/06/21 18:59 Dose: 50 mg Documented by: CHE Valacyclovir HCl (Valacyclovir 1,000 Mg Tab) 1,000 mg PO BID [facility] Last Admin: 09/06/21 20:51 Dose: 1,000 mg Documented by: Admin: 09/06/21 09:54 Dose: 1,000 mg Documented by: Admin: 09/05/21 20:09 Dose: 1,000 mg Documented by: DONNA Zinc Sulfate (Zinc Sulfate 220 Mg Cap) 220 mg PO DAILY [facility] Last Admin: 09/06/21 13:46 Dose: 220 mg Documented by: CHE Labs: Laboratory Tests 09/05/21 Range/Units 15:00 Troponin I High Sens 54 H* (<=51) ng/L Meds: Medications Generic Name Dose Route Start Last Admin Trade Name Freq PRN Reason Stop Dose Admin Acetaminophen 650 mg 09/06/21 08:30 09/06/21 09:54 Acetaminophen 325 Mg Tab PO 650 mg Q4H PRN Administration Pain (mild 1-3) Acetaminophen/Codeine Phosphate 1 tab 09/06/21 12:27 Acetaminophen/Codeine 300-30 Mg Tab PO Q4H PRN Pain Albuterol 2.5 mg 09/05/21 17:45 Albuterol 0.083% 2.5 Mg/3 Ml Neb Soln NEB Q4HR PRN Cough Albuterol 0 gm 09/05/21 18:23 Albuterol Hfa 18 Gm Inhaler INH Q4H PRN shortness of breath Aspirin 162 mg 09/06/21 08:00 09/06/21 09:50 Aspirin 81 Mg Tab.Ec PO 162 mg DAILY [facility] Administration Atorvastatin Calcium 40 mg 09/05/21 20:00 09/06/21 20:58 Atorvastatin 10 Mg Tab PO 40 mg BEDTIME [facility] Administration Cholecalciferol 25 mcg 09/06/21 12:45 09/06/21 13:46 Cholecalciferol (Vitamin D3) 25 Mcg Tab PO 25 mcg DAILY [facility] Administration Cyclobenzaprine HCl 10 mg 09/05/21 18:23 09/05/21 20:09 Cyclobenzaprine 10 Mg Tab PO 10 mg TID PRN Administration Muscle Spasm - Painful Dextrose/Water 50 ml 09/06/21 09:51 50% Dextrose In Water 50 Ml Syringe IV ASDIRECTED PRN Hypoglycemia Dextrose/Water 50 ml 09/06/21 21:44 50% Dextrose In Water 50 Ml Syringe IVPUSH ASDIRECTED PRN Hypoglycemia Duloxetine HCl 60 mg 09/06/21 08:00 09/06/21 09:49 Duloxetine 60 Mg Cap PO 60 mg DAILY [facility] Administration Enoxaparin Sodium 40 mg 09/06/21 20:00 09/06/21 20:50 Enoxaparin 40 Mg/0.4 Ml Syringe SUBCUT 40 mg Q24H [facility] Administration Furosemide 40 mg 09/06/21 15:45 09/06/21 18:58 Furosemide 40 Mg Tab PO 40 mg DAILY [facility] Administration Glucagon 1 mg 09/06/21 21:44 Glucagon,Human Recombinant 1 Mg Vial IM ASDIRECTED PRN Hypoglycemia Latanoprost 0 ml 09/05/21 20:00 09/06/21 20:58 Latanoprost 0.005% Ophth Soln 2.5 Ml Bottle EYEBOTH 1 drop BEDTIME [facility] Administration Loperamide HCl 2 mg 09/06/21 12:34 09/06/21 13:46 Loperamide 2 Mg Cap PO 2 mg Q4H PRN Administration Diarrhea Lorazepam 0.25 - 0.5 mg 09/05/21 19:19 09/05/21 23:33 Lorazepam 0.5 Mg Tab PO 0.5 mg BEDTIME PRN Administration Insomnia Metoprolol Succinate 25 mg 09/06/21 08:00 09/06/21 09:58 Metoprolol Succinate 25 Mg Tab.Er PO 25 mg DAILY [facility] Administration Multivitamins/Minerals 1 tab 09/06/21 08:00 09/06/21 09:53 Multivitamins With Iron/Calcium/Folic Acid/Minerals Tab PO 1 tab DAILY [facility] Administration Non-Formulary Medication 1 each 09/06/21 08:00 Calcium Carbonate/Vitamin D3 [Calcium 600-Vit D3 800 Tablet] PO DAILY [facility] Non-Formulary Medication 1 tab 09/05/21 20:00 Calcium Carbonate/Vitamin D3 PO BID [facility] Ondansetron HCl 4 mg 09/05/21 19:10 Ondansetron 4 Mg Tab.Dis PO TID PRN Nausea Pantoprazole Sodium 40 mg 09/06/21 07:00 09/07/21 06:06 Pantoprazole 40 Mg Tab.Cr PO 40 mg ACBREAKFAST [facility] Administration Prednisone 5 mg 09/07/21 08:00 Prednisone 5 Mg Tab PO WITHBREAKFAST [facility] Pregabalin 75 mg 09/05/21 20:00 09/06/21 20:51 Pregabalin 25 Mg Cap PO 75 mg BID [facility] Administration Sodium Chloride 30 ml 09/05/21 17:15 Sodium Chloride 0.9% 10 Ml Syringe FLUSH ASDIRECTED [facility] Spironolactone 50 mg 09/06/21 08:00 09/06/21 09:49 Spironolactone 25 Mg Tab PO 50 mg DAILY [facility] Administration Tramadol HCl 50 mg 09/06/21 15:32 09/06/21 18:59 Tramadol 50 Mg Tab PO 50 mg Q4H PRN Administration Pain Valacyclovir HCl 1,000 mg 09/05/21 20:00 09/06/21 20:51 Valacyclovir 1,000 Mg Tab PO 1,000 mg BID [facility] Administration Zinc Sulfate 220 mg 09/06/21 12:45 09/06/21 13:46 Zinc Sulfate 220 Mg Cap PO 220 mg DAILY [facility] Administration Discontinued Medications Generic Name Dose Route Start Last Admin Trade Name Freq PRN Reason Stop Dose Admin Alendronate Sodium 70 mg 09/05/21 18:30 09/07/21 01:05 Alendronate 70 Mg Tab PO Not Given Q7D [facility] Dextrose/Water Confirm 09/06/21 05:26 09/06/21 05:28 50% Dextrose In Water 50 Ml Syringe Administered 09/06/21 05:27 50 ml Dose Administration 50 ml .ROUTE .STK-MED ONE Dextrose/Water 50 ml 09/06/21 10:04 09/06/21 17:57 50% Dextrose In Water 50 Ml Syringe IV 09/06/21 10:05 Not Given NOW STA Diphenhydramine HCl 50 mg 09/05/21 17:08 Diphenhydramine 50 Mg/Ml Sdv IVPUSH ASDIRECTED PRN hypersensitivity reaction Epinephrine HCl 0.3 mg 09/05/21 17:08 Epinephrine 1 Mg/1 Ml Amp IM ASDIRECTED PRN hypersensitivity reaction Famotidine 20 mg 09/05/21 17:08 Famotidine 20 Mg/2 Ml Sdv IVPUSH ASDIRECTED PRN hypersensitivity reaction Furosemide 20 mg 09/06/21 19:00 09/06/21 19:07 Furosemide 20 Mg/2 Ml Vial IV 09/06/21 19:01 20 mg ONETIME ONE Administration Glipizide 10 mg 09/05/21 20:00 09/07/21 01:01 Glipizide 10 Mg Tab.Er PO Not Given BID [facility] Heparin Sodium (Porcine) 5,000 units 09/05/21 20:00 09/06/21 09:58 Heparin Sodium 5,000 Units/Ml Vial SUBCUT 5,000 units BID [facility] Administration Lactated Ringer's 1,000 mls @ 150 mls/hr 09/05/21 14:15 09/05/21 14:15 Ringers, Lactated IV 09/05/21 18:00 150 mls/hr ASDIRECTED [facility] Administration Bamlanivimab 700 mg/ 160 mls @ 310 mls/hr 09/05/21 18:00 09/05/21 17:50 Etesevimab 1,400 mg/ Sodium IV 09/05/21 18:30 310 mls/hr Chloride ONETIME ONE Administration Lactated Ringer's 1,000 mls @ 75 mls/hr 09/05/21 18:00 Ringers, Lactated IV ASDIRECTED [facility] Magnesium Sulfate 2 gm/ Premix 50 mls @ 25 mls/hr 09/06/21 14:36 09/06/21 18:25 IV 09/06/21 16:35 25 mls/hr ONETIME ONE Administration Insulin Glargine 5 unit 09/06/21 21:45 09/06/21 22:26 Insulin Glarg,Human.Rec.Analog 100 Unit/Ml SUBCUT 09/06/21 21:46 5 units ONETIME ONE Administration Iopamidol 100 ml 09/05/21 15:18 09/05/21 15:19 Iopamidol 755 Mg/Ml 100 Ml Bottle IVPUSH 09/05/21 15:19 65 ml ONETIME ONE Administration Methylprednisolone Sodium Succinate 125 mg 09/05/21 17:08 Methylprednisolone Sodium Succinate 125 Mg/2 Ml Sdv IVPUSH ASDIRECTED PRN hypersensitivity reaction Methylprednisolone Sodium Succinate 20 mg 09/06/21 12:39 09/06/21 13:41 Methylprednisolone Sodium Succinate 40 Mg/1 Ml Sdv IVPUSH 09/06/21 12:40 20 mg ONETIME ONE Administration Non-Formulary Medication 0.75 mg 09/05/21 18:30 09/07/21 01:05 Dulaglutide [Trulicity] SQ Not Given Q7D [facility] Non-Formulary Medication 5 mg 09/06/21 08:00 09/07/21 01:01 Prednisolone [Millipred] PO Not Given DAILY [facility] - Radiology Interpretation Free Text/Narrative:: CT of the chest per radiology shows no pulmonary emboli. Stable saccular aneurysm proximal descending thoracic aorta. Bilateral patchy pulmonary parenchymal infiltrates. Chest x-ray shows no evidence of pneumonia no pleural effusion or pneumothorax per radiology. - Re-Assessments/Exams Free Text/Narrative Re-Assessment/Exam: Patient did have of IVs established during the rapid response. Improved with resuscitation was started prior to arrival. Patient's blood pressure was initially 50 systolically in the outpatient suite. 2 L bolus was initiated. Her EKG does have some chronic changes of T wave inversion laterally and inferiorly. But there is no ST elevation or depression when reviewed extemporaneously by myself. The patient was given aspirin orally. As she has having some pressure in her chest. Laboratory evaluation is rather unremarkable with a hemoglobin 11.8. Her D-dimer is mildly elevated at 1.05. CMP shows an acute kidney injury with a creatinine of 2.1 and a BUN of 24. She did have a creatinine of 0.9 just 24 hours ago. She has a mild elevation of her lactic at 2.8. Her glucose is 58. Her troponin is 54 initially and it was repeated at 2 hours and was found to be 61. This is most likely due to her episode of severe hypotension. The patient did respond well to fluid resuscitation. She is not requiring any increased oxygen from her baseline. She is immunocompromised. She clearly has most likely a vasovagal syndrome with severe dehydration due to her Covid status. Think it is important for her to be in the hospital at this time. We will place her under observation status and that we can get her monoclonal antibody therapy at this time. We will aggressively hydrate her with fluids to improve her kidney function. Her CT for PE scan was negative. I Did discuss this case with DR. Belinda Melo who will see the patient the in the morning the patient is comfortable with this plan and her questions answered. I did discuss this case with DR. Yang at [place] who is product applications engineer for the [facility] hospitalist at [place]. HPI ER COURSE findings concerns and plan of care was discussed with her and she was comfortable with this plan at this time. Departure - Departure Time of Disposition: 15:30 Disposition: Refer to Observation Clinical Impression: Hypotension due to hypovolemia, Vaso vagal episode, BARBARA (acute kidney injury), COVID-19, Chronic respiratory failure with hypoxia - Discharge Information - Assessment/Plan Admission H&P: Please use this note as an admission H&P Assessment:: A/P #1: Hypotension, most likely vasovaguel multi-factorial. Received 2 liters of fluid in the ED. Telemetry IV LR 125mls/hr #2: Elevated troponin H Sens. No signs of ACS at this time. Most likely due to hypotensive episode. Repeat at 6 hrs and if not changing will repeat in the morning. Attending to determine is ASA is continued she did get a full dose in the ED. #3: Covid-19 infection in a immunocompromised patient. MAD infusion as ordered per protocol Isolation I do not feel dex is indicated at this time as she is not having increased oxygen demands at this time and she is on chronic prednisone which I will continue Will hold her Avara due to her infection as well. #4: Acute kidney injury due to hypovolemia and dehydration Creat 0.9 09/04/21 and 2.1 today. Hydrate with LR 125mls/hr over night. Recheck labs in the morning. Hold Mobic. Chronic Diagnosis Chronic hypoxic respiratory failure pulmonary fibrosis. Continue oxygenation therapy. Type 2 diabetes. Continue her Trulicity and glipizide. 4 times daily Accu- Cheks. Coarctation of the aorta stable. Rheumatoid arthritis we will hold her of our at this time due to her COVID-19 infection continue her acyclovir as well as her prednisone Hypertension. I will hold her lisinopril as well as her Lasix. PTSD generalized anxiety disorder continue home therapies. Sepsis: No signs of sepsis at this time. VTE: Short stay TEDs Code Status: full Patient will be admitted into the hospital under observation status due to the above concerns. I do not anticipate any more than 48 hours of hospitalization unless the patient status worsens or deteriorates. We will trend her troponins. Although this is most likely due to the hypotensive vasovagal episode. No signs of acute coronary syndrome at this time. We will monitor closely throughout the night. Dr. Belinda melo to see the patient in the morning. The patient is comfortable with this plan and her questions answered.
[2021-09-06] MEDS ORDERED: 50% Dextrose in Water 50 ML Syringe ONE (05:26)
[2021-09-06 05:45] LABS: ANION GAP 10.2 mmol/L (5-15)
[2021-09-06] MEDS: Pantoprazole 40 MG Tab.CR PO SCH (06:28)
[2021-09-06] MEDS ORDERED: PREDNISOLONE 5 MG PO SCH (08:00)
[2021-09-06] MEDS: Pregabalin 25 MG Cap PO SCH ×2 (09:48→20:51)
[2021-09-06] MEDS: DULoxetine 60 MG Cap PO SCH (09:49)
[2021-09-06] MEDS: Spironolactone 25 MG Tab PO SCH (09:49)
[2021-09-06] MEDS: Aspirin 81 MG Tab.EC PO SCH (09:50)
[2021-09-06] MEDS ORDERED: 50% Dextrose in Water 50 ML Syringe IV PRN (09:51)
[2021-09-06] MEDS: Multivitamins with Iron/Calcium/Folic Acid/Minerals Tab PO SCH (09:53)
[2021-09-06] MEDS: Acetaminophen 325 MG Tab PO PRN (09:54)
[2021-09-06] MEDS: valACYclovir 1,000 MG Tab PO SCH ×2 (09:54→20:51)
[2021-09-06] MEDS: Metoprolol Succinate 25 MG Tab.ER PO SCH (09:58)
[2021-09-06] MEDS: Heparin Sodium 5,000 Units/ML Vial SUBCUT SCH (09:58)
[2021-09-06] MEDS ORDERED: 50% Dextrose in Water 50 ML Syringe IV STA (10:04)
[2021-09-06] MEDS ORDERED: Acetaminophen/Codeine 300-30 MG Tab PO PRN (12:27)
[2021-09-06] MEDS ORDERED: Loperamide 2 MG Cap PO PRN (12:34)
[2021-09-06] MEDS ORDERED: methylPREDNISolone Sodium Succinate 40 MG/1 ML SDV IVPUSH ONE (12:39)
[2021-09-06] MEDS: Cholecalciferol (Vitamin D3) 25 MCG Tab PO SCH (13:46)
[2021-09-06] MEDS: Zinc Sulfate 220 MG Cap PO SCH (13:46)
--- NOTE | 2021-09-06 14:33 | PN ---
Progress Note for OPHLEIA GIBSON Date: 09/06/2021 Room #: SUBJECTIVE: This is hospital day #2 on a 61-year-old admitted on observation yesterday after she presented for her monoclonal antibody infusion for COVID which was diagnosed on 09/04/2021 and she had not been feeling well for about 4 days before that with upper abdominal pain, dizziness, nausea, diarrhea. She continues to have diarrhea here, very loose stools. She developed some right upper quadrant pain today. She said just this morning, she has had her gallbladder out. She also has had a headache during the night and got some Tylenol finally this morning that maybe helped some. Normally, she takes ibuprofen, but was in acute renal failure yesterday in the ER with creatinine up to 2 when she presented for her monoclonal infusion. She had sort of a syncopal episode around the time they were going to start the IV. Her blood pressure was in the 50s. They gave her 3 L of fluid. She is normally on 4 L of oxygen for pulmonary fibrosis with history of methotrexate use and then also taking lisinopril at home and Mobic, those things have been held. Decision was made to contact [facility] and they agreed the patient should still get the monoclonal antibodies which she did get and this morning her creatinine improved down to 1.3, but she is not feeling better. She just became more short of breath this morning. She does not have a history of heart failure, but had a coarctation of the aorta procedure in the past. She has rheumatoid arthritis. She has had a previous stroke. She has had COPD. She is currently on prednisone 5 mg daily or prednisolone, but she has not received it yet. Her hemoglobin which is normally around 11 did drop to 10.5. There has been no blood or blackness in the stools. Her other complicating factor is her blood sugars have been quite low, only 36 today. Did have to get D50. On her panel on the , it was already low at 41. Her A1c is around 6.5 and she is on the oral glipizide and like a Trulicity injection. Blood sugar when I saw her is still only 59 and she still has a headache, frontal and posterior. She tells me she used to have migraines in the past. OBJECTIVE: Vital Signs: Her temperature is 98.2, pulse 89, blood pressure 118/40, respiratory rate is 20, and O2 is 95 on 5 L, normally she is on 4. General: She is in no acute distress. Heart: Regular rate and rhythm. Lungs: Lung sounds are decreased with some fine crackles in both bases bilaterally. Abdomen: Mildly distended with hyperactive bowel sounds, and just after palpating, there was no tenderness, but the patient had to urgently get up and get to the bathroom and I did assist her and did see that her stools were light pinto in color, lots of air and water, not formed at all. Extremities: Warm and dry. No edema. Mental Status: Alert, orientated x3. Extremities: Her neck has normal range of motion. LABORATORY DATA: White count 6.7, hemoglobin 10.5, platelets 213. Sodium 138, potassium 4.2, chloride 100, bicarb 32, BUN 16, creatinine 1.3, glucose 59, calcium 8.1, troponin is up to 110. ASSESSMENT: 1. Coronavirus disease 2019 infection. It seems like symptoms started around 09/01/2021 per patient report, confirmed positive on 09/04/2021. Monoclonal antibodies given on 09/05/2021. The patient will continue with her regular home and supportive oxygen. We will repeat a chest x-ray today. She is still in the acute phases of coronavirus disease 2019. She does chronically take steroids. I will give her a small dose of Solu- Medrol due to her headache if she is not able to take NSAIDs. 2. Acute renal failure due to her acute illness with coronavirus disease, probably some volume depletion and hypotension. Her creatinine is already improved. We will continue to monitor. 3. Diarrhea, could be related to the coronavirus disease. I will order her some Imodium p.r.n. Her white count is normal. We will send off for CRP and procalcitonin. 4. Chronic hypoxic respiratory failure with slight worsening in shortness of breath. We will get the lab work for a BNP and a chest x-ray and very likely she will be getting some IV Lasix today since her blood pressure will now allow. 5. Rheumatoid arthritis. Her Arava is on hold. We will continue her on the prednisone. 6. Headache. Neurologic exam is normal. We will allow her to have the Tylenol No. 3 since this has worked for her in the past as she cannot have NSAIDs. 7. Underlying chronic obstructive pulmonary disease. I will have nebulizers available. 8. Fibromyalgia. Her Lyrica is also available. 9. History of congenital heart disease. The patient is also on Aldactone, that medication has been continued, but her Lasix is currently on hold, but likely will need to be restarted or given IV today. 10.Type 2 diabetes with current hypoglycemia. I will continue to hold glipizide and monitor q.i.d. Accu-Cheks. 11. Mild anemia PLAN: The patient will be upgraded from observation to acute cares, anticipate she will need at least another 2 nights stay. We will work on her pain control and respiratory status and monitor closely for any decompensation from COVID. We will do a CXR and some lab work this afternoon including procalcitonin and repeat lab work tomorrow. She is eating. The patient is a code level 1. For DVT prophylaxis, she is on heparin but now can switch to Lovenox. She did have mild anemia, so we will continue to monitor her hemoglobin. MKA: 09/06/2021 12:54:31 MODL: 09/06/2021 14:03:24 /[id number] MTDD
[2021-09-06] MEDS ORDERED: Magnesium Sulfate/Water 2 GM in Premix Bag 1 BAG IV ONE (14:36)
[2021-09-06] MEDS ORDERED: Furosemide 20 MG/2 ML VIAL IV ONE ×2 (14:37→19:00)
--- NOTE | 2021-09-06 15:30 | CR ---
[id number] RAD/RAD Chest PA or AP 1V EXAM: RAD Chest PA or AP 1V INDICATION: SHORT OF BREATH. COMPARISON: Yesterday. DISCUSSION/IMPRESSION: Cardiomediastinal silhouette is enlarged and similar compared to the prior examination. Increased parenchymal opacification in both lungs compared to the prior examination. Findings are consistent with either pulmonary edema or pneumonia. Correlate for signs of infection. Nav Cheek MD 09/06/21 [id number] Thank you for allowing us to participate in the care of your patient.
--- NOTE | 2021-09-06 16:13 | PCM.SN.2 ---
- Free Text/Narrative Note: Patient continues with headaches would use nsaids at home due to renal failure we tried 20 of solumedrol and it didn't help she will use Tramadol at home so I did order that for her. Headaches probably related to covid. Also breathing is not improving and CXR suggestive of fluid and did get a lot of fluid due to re nal failure so I did restart home lasix and ordered a dose IV. Patient up to 5 L normally on 4 at home.
[2021-09-06] MEDS: Furosemide 40 MG Tab PO SCH (18:58)
[2021-09-06] MEDS: traMADol 50 MG Tab PO PRN (18:59)
[2021-09-06] MEDS: Enoxaparin 40 MG/0.4 ML Syringe SUBCUT SCH (20:50)
[2021-09-06] MEDS: Latanoprost 0.005% Ophth Soln 2.5 ML Bottle EYEBOTH SCH (20:58)
[2021-09-06] MEDS: atorvaSTATin 10 MG Tab PO SCH (20:58)
[2021-09-06] MEDS ORDERED: 50% Dextrose in Water 50 ML Syringe IVPUSH PRN (21:44)
[2021-09-06] MEDS ORDERED: Glucagon,Human Recombinant 1 MG Vial IM PRN (21:44)
[2021-09-06] MEDS ORDERED: Insulin Glarg,Human.Rec.Analog 100 Unit/ML SUBCUT ONE (21:45)
[2021-09-07] MEDS: glipiZIDE 10 MG Tab.ER PO SCH (01:01)
[2021-09-07] MEDS: Pantoprazole 40 MG Tab.CR PO SCH (06:06)
[2021-09-07 08:45] LABS: ANION GAP 8.7 mmol/L (5-15)
[2021-09-07] MEDS: Pregabalin 25 MG Cap PO SCH (09:39)
[2021-09-07] MEDS: valACYclovir 1,000 MG Tab PO SCH (09:39)
[2021-09-07] MEDS: Aspirin 81 MG Tab.EC PO SCH (09:41)
[2021-09-07] MEDS: DULoxetine 60 MG Cap PO SCH (09:41)
[2021-09-07] MEDS: Multivitamins with Iron/Calcium/Folic Acid/Minerals Tab PO SCH (09:41)
[2021-09-07] MEDS: Metoprolol Succinate 25 MG Tab.ER PO SCH (09:42)
[2021-09-07] MEDS: predniSONE 5 MG Tab PO SCH (09:43)
[2021-09-07] MEDS: Furosemide 40 MG Tab PO SCH (09:43)
[2021-09-07] MEDS: Zinc Sulfate 220 MG Cap PO SCH (09:44)
[2021-09-07] MEDS: Cholecalciferol (Vitamin D3) 25 MCG Tab PO SCH (09:44)
[2021-09-07] MEDS: Spironolactone 25 MG Tab PO SCH (09:44)
[2021-09-07] MEDS: traMADol 50 MG Tab PO PRN ×2 (11:25→17:57)
[2021-09-07] MEDS ORDERED: 50% Dextrose in Water 50 ML Syringe IVPUSH PRN (12:18)
[2021-09-07] MEDS ORDERED: Glucagon,Human Recombinant 1 MG Vial IM PRN (12:18)
[2021-09-07] MEDS: Insulin Glarg,Human.Rec.Analog 100 Unit/ML SUBCUT SCH (12:51)
--- NOTE | 2021-09-08 05:49 | PN ---
Progress Note for OPHELIA GIBSON Date: 09/07/2021 Room #: VM.209 SUBJECTIVE: This is acute hospital day #2 and hospital day #3 overall for a 61- year-old admitted with a syncopal episode and hypotension when she arrived for monoclonal antibody therapy. The patient began having her COVID symptoms on 09/01 with a positive test on 09/04 and 09/05, did get the monoclonal antibodies of bamlanivimab/etesevimab. The patient continues to have some headache. It did get better last night. She has been using some p.r.n. tramadol. It sounds like the headache is likely related to the COVID. Her diarrhea is better today after getting Imodium. Her right lower chest wall upper abdominal pain has resolved and overall, she just feels tired. She is coughing some, a little bit of production, but her breathing is much better, and she also did get some IV Lasix because when she came in, she was in acute renal failure and got like several liters of fluid and then had a CT that was negative for PE protocol. The patient has been afebrile and she continues with not having any need for antibiotics. Her procalcitonin is normal. OBJECTIVE: Vital signs: Her temperature is 98.3, pulse 67, blood pressure 128/52, respiratory rate is 19, and O2 of 97% on 3 L which is her home rate. General: She is in no acute distress. Heart: Has regular rate and rhythm. S1, S2 without murmur. Lungs: Sounds are clear to auscultation bilaterally without crackles or wheezes. Abdomen: Has positive bowel sounds. Soft, nondistended, nontender. Extremities: Warm and dry. No edema. Mental status: She is alert and orientated x3. HEENT: She states her eyes hurt, but her pupils are equal, round, and reactive and moving appropriately. ASSESSMENT: 1. COVID-19 infection day #7 from symptom onset. She has had monoclonal antibodies. Discussed with Infectious Disease, just continue symptomatic treatment and monitoring. No indication for remdesivir. 2. Hypotension probably due to the volume depletion and vasovagal. This has completely resolved. She is doing well back on her diuretics. 3. Pulmonary fibrosis. She is on her home oxygen. She did have a little bit of fluid retention yesterday, but this resolved after restarting her diuretics. We will continue Lasix and Aldactone, but we will do Lasix just once daily. 4. Probable diastolic heart failure. Her last ejection fraction was over 70%. She is symptomatically improved. 5. Rheumatoid arthritis. She is on daily prednisolone 5 mg daily. 6. Acute renal failure. This has resolved. Creatinine at 1.4. We will continue to monitor closely. 7. Type 2 diabetes now with hyperglycemia. She did have some hypoglycemia. We will increase Lantus which we gave yesterday 5 units to 8 units daily and adjust as needed. Her oral intake has been fair. 8. Obesity. 9. [id number]-[id number] myocardial infarction due to hypotensive episode and COVID- 19. Clinically, she is not having any chest pain and her troponin is now trending down. 10.Coarctation of the aorta in the past, treated. 11.History of post-traumatic stress disorder and anxiety. She is on her home medications. PLAN: The patient will be continued on acute cares. We will continue to try to manage her headaches with tramadol. She is also on Lyrica. She is continuing her home medications for moods and blood pressure. Her diarrhea has now resolved. Her headaches probably related to COVID illness suspect. If she continues to improve, she may be discharged home in the next day or two and she is already on oxygen. She is a code level 1, and for DVT prophylaxis, she is on Lovenox. MKA: 09/07/2021 13:18:49 MODL: 09/07/2021 13:44:42 /[id number]
[2021-09-08] MEDS: Enoxaparin 40 MG/0.4 ML Syringe SUBCUT SCH ×2 (07:43→20:41)
[2021-09-08] MEDS: valACYclovir 1,000 MG Tab PO SCH ×3 (07:43→20:10)
[2021-09-08] MEDS: Ondansetron 4 MG Tab.DIS PO PRN ×2 (07:43→20:41)
[2021-09-08] MEDS: Pregabalin 25 MG Cap PO SCH ×3 (07:43→20:10)
[2021-09-08] MEDS: Pantoprazole 40 MG Tab.CR PO SCH (07:43)
[2021-09-08] MEDS: Latanoprost 0.005% Ophth Soln 2.5 ML Bottle EYEBOTH SCH ×2 (07:43→20:30)
[2021-09-08] MEDS: atorvaSTATin 10 MG Tab PO SCH ×2 (07:44→20:10)
[2021-09-08] MEDS: traMADol 50 MG Tab PO PRN ×3 (07:45→20:16)
[2021-09-08] MEDS ORDERED: Insulin Glarg,Human.Rec.Analog 100 Unit/ML SUBCUT SCH ×2 (08:45→09:15)
[2021-09-08 08:47] LABS: ANION GAP 8.9 mmol/L (5-15)
[2021-09-08] MEDS: CALCIUM CARBONATE PO SCH ×2 (08:55→09:08)
[2021-09-08] MEDS: VITAMIN D3 PO SCH ×2 (08:55→09:08)
[2021-09-08] MEDS: Insulin Glarg,Human.Rec.Analog 100 Unit/ML SUBCUT SCH ×2 (09:08→11:57)
[2021-09-08] MEDS ORDERED: Ondansetron 4 MG/2 ML SDV IVPUSH PRN (09:30)
[2021-09-08] MEDS ORDERED: Meloxicam 7.5 MG Tab PO PRN (09:31)
[2021-09-08] MEDS: Multivitamins with Iron/Calcium/Folic Acid/Minerals Tab PO SCH (09:46)
[2021-09-08] MEDS: DULoxetine 60 MG Cap PO SCH (09:46)
[2021-09-08] MEDS: Aspirin 81 MG Tab.EC PO SCH (09:46)
[2021-09-08] MEDS: Zinc Sulfate 220 MG Cap PO SCH (09:46)
[2021-09-08] MEDS: Cholecalciferol (Vitamin D3) 25 MCG Tab PO SCH (09:47)
[2021-09-08] MEDS: Spironolactone 25 MG Tab PO SCH (09:47)
[2021-09-08] MEDS: predniSONE 5 MG Tab PO SCH (09:47)
[2021-09-08] MEDS: Metoprolol Succinate 25 MG Tab.ER PO SCH (09:47)
[2021-09-08] MEDS: Furosemide 40 MG Tab PO SCH (09:47)
--- NOTE | 2021-09-08 12:44 | PN ---
Progress Note for OPHELIA GIBSON Date: 09/08/2021 Room #: SUBJECTIVE: This is acute hospital day #3 and hospital day #4 overall for a 61- year-old admitted with a near syncopal episode with hypotension when she arrived for her monoclonal antibody therapy. She began having COVID symptoms on 09/01, just not feeling well. She continues to have headaches. She has been using tramadol for that about twice daily. In fact, this morning she was nauseous, she had a headache and was dizzy, but did get an oral dissolving Zofran and her tramadol and it helped. Her positive test was on 09/04. She did receive bam/etesevimab on 09/05. She otherwise did not eat her breakfast this morning due to feeling poorly. She does not feel like eating. She just wants to rest but did eat yesterday. Blood sugars are much improved on the 8 units of Lantus. She is off her diabetes medications. She is due for her Trulicity today, but due to not feeling well, I would hold off on that. She also had acute renal failure and got IV fluids initially. Her renal function is back to normal and her Lasix has been restarted. She normally does take some NSAIDs at home for pain. Procalcitonin has been normal. She has not needed any antibiotics. She has not had any fevers. Heart rates have been low around 57 to 60. She did get her Toprol yesterday morning. OBJECTIVE: Vital Signs: Her temperature is 97.3, pulse 57, blood pressure 144/61, respiratory rate 16, and O2 99 on 3 L. General: She is in no acute distress. Heart: Regular rate and rhythm. S1, S2 without murmur. Lungs: Sounds are clear to auscultation bilaterally without crackles or wheezes. Abdomen: Has positive bowel sounds. Soft, nondistended, nontender. Extremities: Warm and dry. No edema. Mental Status: Alert and orientated x3. LABORATORY DATA: Her lab work did show her to have a white count of 4.9, hemoglobin 10.7, platelets 238. Sodium 135, potassium 3.9, chloride 96, bicarb 34, BUN 23, creatinine 1.1, glucose 129, calcium 8.7. Troponin trended down to 143 yesterday. ASSESSMENT AND PLAN: 1. COVID-19 infection, day #8 from symptom onset. Had monoclonal antibodies. Continue symptomatic cares for nausea and headaches. No indications for remdesivir. I did discuss with ID in [place] yesterday. 2. Essential hypertension. We will hold off on restarting her losartan today, but I will restart the new dose of Lasix in addition to the morning dose. She is already on Aldactone. We will hold Toprol if heart rates are under 60. 3. Pulmonary fibrosis. She is on her same home oxygen of 3 L. 4. Chronic hypoxic respiratory failure due to pulmonary fibrosis. 5. Probable chronic diastolic heart failure. She is on her home Lasix again, this should help blood pressure. 6. Rheumatoid arthritis, on prednisolone 5 mg daily. 7. Acute renal failure due to volume depletion and acute illness, resolved. We will cautiously allow her to take some Mobic daily if needed for headache. She normally takes this at home. 8. Type 2 diabetes without long-term insulin use. We will keep her on her Lantus 8 units today as her blood sugars did improve down to 129 this morning, but was 155 to 397 yesterday. We will make sure she is eating better before we increase insulin. We will continue q.i.d. checks. 9. Obesity. 10.Pzj-IR-krcvewxis myocardial infarction due to the hypotensive episode, most likely she is not having any chest pain. She does not have a history of coronary artery disease. She has had treatments for coarctation of the aorta in the past. 11.History of posttraumatic stress disorder, anxiety, fibromyalgia, history of migraines. Home medications are available for her including Lyrica and Cymbalta. PLAN: The patient will continue on acute cares. We will discontinue the Tylenol No.3 as she did not find this effective, but tramadol is available. Her diarrhea has resolved. She is not having constipation. We will continue on Lasix, increase it back up to twice daily like she takes at home. We will have Zofran available both IV and oral. Did offer her things like Antivert for dizziness, but right now she is feeling better after the Zofran and tramadol, so we will continue supportive cares. We will get a PT consult in the morning and anticipate if she is doing well, she will be discharged home, potentially with home health. She is a code level 1, and for DVT prophylaxis, she continues on Lovenox. Dr. Lawrence to assume care on 09/09. MKA: 09/08/2021 09:45:46 MODL: 09/08/2021 10:41:05 /[id number] MTDD
[2021-09-08] MEDS: Furosemide 20 MG Tab PO SCH (14:57)
[2021-09-09] MEDS: VITAMIN D3 PO SCH ×3 (00:44→00:50)
[2021-09-09] MEDS: CALCIUM CARBONATE PO SCH ×3 (00:44→00:50)
[2021-09-09] MEDS: Pantoprazole 40 MG Tab.CR PO SCH ×2 (06:01→20:17)
--- NOTE | 2021-09-09 08:52 | PCM.PN ---
- General Info Date of Service: 09/09/21 Subjective Update: 61 yo female hospital day #4 (day #3 acute) admitted with hypotension and dehydration in the setting of severe nausea related to COVID-19 infection. Patient states she continues not to feel well. She is having significant headaches as well as nausea. She has really not been able to get out of bed much as she has severe dizziness and nausea whenever she tries. No vomiting. She does have a cough but that is not worsening and is mostly dry. She has not had any diarrhea. In fact, she has not had a BM now for a couple of days but she states she does not feel constipated. She does have some epigastric discomfort as well. She has been eating/drinking some but this does worsen her abdominal pain and nausea. No shortness of breath or chest pain. No fevers. - Review of Systems General: Reports: No Symptoms HEENT: Reports: Sinus Congestion Pulmonary: Reports: Cough. Denies: Shortness of Breath, Pleuritic Chest Pain Cardiovascular: Reports: No Symptoms Gastrointestinal: Reports: Abdominal Pain, Decreased Appetite, Nausea. Denies: Constipation, Diarrhea, Vomiting Genitourinary: Reports: No Symptoms Musculoskeletal: Reports: No Symptoms Skin: Reports: No Symptoms Neurological: Reports: Headache. Denies: Confusion, Numbness, Pre-Existing Deficit, Weakness - Patient Data Vitals - Most Recent: Last Vital Signs Temp 35.9 C L 09/09/21 04:57 Pulse 72 09/09/21 06:12 Resp 20 09/09/21 06:12 BP 143/74 H 09/09/21 06:12 Pulse Ox 97 09/09/21 06:12 Weight - Most Recent: 80.014 kg I&O - Last 24 Hours: Intake & Output 09/08/21 09/09/21 09/09/21 22:59 06:59 14:59 Intake Total 730 Output Total 950 900 Balance -950 -170 Lab Results Last 24 Hours: Laboratory Results - last 24 hr 09/07/21 09/07/21 09/08/21 Range/Units 17:56 22:07 06:10 Sodium (136-145) mmol/L Potassium (3.5-5.1) mmol/L Chloride (98-107) mmol/L Carbon Dioxide (21-32) mmol/L Anion Gap (5-15) mmol/L BUN (7-18) mg/dL Creatinine (0.55-1.02) mg/dL Est Cr Clr Drug Dosing mL/min Estimated GFR (MDRD) Glucose (70-99) mg/dL POC Glucose 214 H 281 H 147 H (70-99) mg/dL Calcium (8.5-10.1) mg/dL 09/08/21 09/08/21 09/08/21 Range/Units 07:39 08:18 11:49 Sodium 135 L (136-145) mmol/L Potassium 3.9 (3.5-5.1) mmol/L Chloride 96 L (98-107) mmol/L Carbon Dioxide 34 H (21-32) mmol/L Anion Gap 8.9 (5-15) mmol/L BUN 23 H (7-18) mg/dL Creatinine 1.1 H (0.55-1.02) mg/dL Est Cr Clr Drug Dosing 37.60 mL/min Estimated GFR (MDRD) 50 Glucose 129 H (70-99) mg/dL POC Glucose 126 H 150 H (70-99) mg/dL Calcium 8.7 (8.5-10.1) mg/dL 09/08/21 09/08/21 09/09/21 Range/Units 17:50 20:18 04:36 Sodium (136-145) mmol/L Potassium (3.5-5.1) mmol/L Chloride (98-107) mmol/L Carbon Dioxide (21-32) mmol/L Anion Gap (5-15) mmol/L BUN (7-18) mg/dL Creatinine (0.55-1.02) mg/dL Est Cr Clr Drug Dosing mL/min Estimated GFR (MDRD) Glucose (70-99) mg/dL POC Glucose 260 H 278 H 134 H (70-99) mg/dL Calcium (8.5-10.1) mg/dL 09/09/21 Range/Units 06:08 Sodium (136-145) mmol/L Potassium (3.5-5.1) mmol/L Chloride (98-107) mmol/L Carbon Dioxide (21-32) mmol/L Anion Gap (5-15) mmol/L BUN (7-18) mg/dL Creatinine (0.55-1.02) mg/dL Est Cr Clr Drug Dosing mL/min Estimated GFR (MDRD) Glucose (70-99) mg/dL POC Glucose 158 H (70-99) mg/dL Calcium (8.5-10.1) mg/dL Med Orders - Current: Current Medications Acetaminophen (Acetaminophen 325 Mg Tab) 650 mg PO Q4H PRN PRN Reason: Pain (mild 1-3) Last Admin: 09/06/21 09:54 Dose: 650 mg Documented by: Albuterol (Albuterol 0.083% 2.5 Mg/3 Ml Neb Soln) 2.5 mg NEB Q4HR PRN PRN Reason: Cough Albuterol (Albuterol Hfa 18 Gm Inhaler) 0 gm INH Q4H PRN PRN Reason: shortness of breath Aspirin (Aspirin 81 Mg Tab.Ec) 162 mg PO DAILY [facility] Last Admin: 09/08/21 09:46 Dose: 162 mg Documented by: Atorvastatin Calcium (Atorvastatin 10 Mg Tab) 40 mg PO BEDTIME [facility] Last Admin: 09/08/21 20:10 Dose: 40 mg Documented by: Calcium Carbonate (Calcium Carbonate/Vitamin D3 1250 Mg-5 Mcg Tab) 1 tab PO DAILY [facility] Cholecalciferol (Cholecalciferol (Vitamin D3) 25 Mcg Tab) 25 mcg PO DAILY [facility] Last Admin: 09/08/21 09:47 Dose: 25 mcg Documented by: Cyclobenzaprine HCl (Cyclobenzaprine 10 Mg Tab) 10 mg PO TID PRN PRN Reason: Muscle Spasm - Painful Last Admin: 09/05/21 20:09 Dose: 10 mg Documented by: Dextrose/Water (50% Dextrose In Water 50 Ml Syringe) 50 ml IV ASDIRECTED PRN PRN Reason: Hypoglycemia Dextrose/Water (50% Dextrose In Water 50 Ml Syringe) 50 ml IVPUSH ASDIRECTED PRN PRN Reason: Hypoglycemia Duloxetine HCl (Duloxetine 60 Mg Cap) 60 mg PO DAILY [facility] Last Admin: 09/08/21 09:46 Dose: 60 mg Documented by: Enoxaparin Sodium (Enoxaparin 40 Mg/0.4 Ml Syringe) 40 mg SUBCUT Q24H [facility] Last Admin: 09/08/21 20:41 Dose: 40 mg Documented by: Furosemide (Furosemide 40 Mg Tab) 40 mg PO DAILY [facility] Last Admin: 09/08/21 09:47 Dose: 40 mg Documented by: Furosemide (Furosemide 20 Mg Tab) 20 mg PO Q24H [facility] Glucagon (Glucagon,Human Recombinant 1 Mg Vial) 1 mg IM ASDIRECTED PRN PRN Reason: Hypoglycemia Insulin Glargine (Insulin Glarg,Human.Rec.Analog 100 Unit/Ml) 8 unit SUBCUT DAILY [facility] Last Admin: 09/08/21 11:57 Dose: 8 unit Documented by: Latanoprost (Latanoprost 0.005% Ophth Soln 2.5 Ml Bottle) 0 ml EYEBOTH BEDTIME [facility] Last Admin: 09/08/21 20:30 Dose: 1 drop Documented by: Loperamide HCl (Loperamide 2 Mg Cap) 2 mg PO Q4H PRN PRN Reason: Diarrhea Last Admin: 09/06/21 13:46 Dose: 2 mg Documented by: Lorazepam (Lorazepam 0.5 Mg Tab) 0.25 - 0.5 mg PO BEDTIME PRN PRN Reason: Insomnia Last Admin: 09/05/21 23:33 Dose: 0.5 mg Documented by: Meloxicam (Meloxicam 7.5 Mg Tab) 7.5 mg PO DAILY PRN PRN Reason: Pain Metoprolol Succinate (Metoprolol Succinate 25 Mg Tab.Er) 25 mg PO DAILY [facility] Last Admin: 09/08/21 09:47 Dose: Not Given Documented by: Multivitamins/Minerals (Multivitamins With Iron/Calcium/Folic Acid/Minerals Tab) 1 tab PO DAILY [facility] Last Admin: 09/08/21 09:46 Dose: 1 tab Documented by: Ondansetron HCl (Ondansetron 4 Mg Tab.Dis) 4 mg PO TID PRN PRN Reason: Nausea Last Admin: 09/08/21 20:41 Dose: 4 mg Documented by: Ondansetron HCl (Ondansetron 4 Mg/2 Ml Sdv) 4 mg IVPUSH Q8H PRN PRN Reason: Nausea Last Admin: 09/08/21 14:59 Dose: 4 mg Documented by: Pantoprazole Sodium (Pantoprazole 40 Mg Tab.Cr) 40 mg PO BID [facility] Prednisone (Prednisone 5 Mg Tab) 40 mg PO WITHBREAKFAST [facility] Pregabalin (Pregabalin 25 Mg Cap) 75 mg PO BID [facility] Last Admin: 09/08/21 20:10 Dose: 75 mg Documented by: Sodium Chloride (Sodium Chloride 0.9% 10 Ml Syringe) 30 ml FLUSH ASDIRECTED [facility] Spironolactone (Spironolactone 25 Mg Tab) 50 mg PO DAILY [facility] Last Admin: 09/08/21 09:47 Dose: 50 mg Documented by: Tramadol HCl (Tramadol 50 Mg Tab) 50 mg PO Q4H PRN PRN Reason: Pain Last Admin: 09/08/21 20:16 Dose: 50 mg Documented by: Valacyclovir HCl (Valacyclovir 1,000 Mg Tab) 1,000 mg PO BID [facility] Last Admin: 09/08/21 20:10 Dose: 1,000 mg Documented by: Zinc Sulfate (Zinc Sulfate 220 Mg Cap) 220 mg PO DAILY [facility] Last Admin: 09/08/21 09:46 Dose: 220 mg Documented by: Discontinued Medications Acetaminophen/Codeine Phosphate (Acetaminophen/Codeine 300-30 Mg Tab) 1 tab PO Q4H PRN PRN Reason: Pain Alendronate Sodium (Alendronate 70 Mg Tab) 70 mg PO Q7D [facility] Last Admin: 09/07/21 01:05 Dose: Not Given Documented by: Dextrose/Water (50% Dextrose In Water 50 Ml Syringe) Confirm Administered Dose 50 ml .ROUTE .STK-MED ONE Stop: 09/06/21 05:27 Last Admin: 09/06/21 05:28 Dose: 50 ml Documented by: Dextrose/Water (50% Dextrose In Water 50 Ml Syringe) 50 ml IV NOW [facility] Stop: 09/06/21 10:05 Last Admin: 09/06/21 17:57 Dose: Not Given Documented by: Dextrose/Water (50% Dextrose In Water 50 Ml Syringe) 50 ml IVPUSH ASDIRECTED PRN PRN Reason: Hypoglycemia Diphenhydramine HCl (Diphenhydramine 50 Mg/Ml Sdv) 50 mg IVPUSH ASDIRECTED PRN PRN Reason: hypersensitivity reaction Epinephrine HCl (Epinephrine 1 Mg/1 Ml Amp) 0.3 mg IM ASDIRECTED PRN PRN Reason: hypersensitivity reaction Famotidine (Famotidine 20 Mg/2 Ml Sdv) 20 mg IVPUSH ASDIRECTED PRN PRN Reason: hypersensitivity reaction Furosemide (Furosemide 20 Mg/2 Ml Vial) 20 mg IV ONETIME ONE Stop: 09/06/21 19:01 Last Admin: 09/06/21 19:07 Dose: 20 mg Documented by: Furosemide (Furosemide 20 Mg Tab) 20 mg PO DAILY [facility] Last Admin: 09/08/21 14:57 Dose: 20 mg Documented by: Glipizide (Glipizide 10 Mg Tab.Er) 10 mg PO BID [facility] Last Admin: 09/07/21 01:01 Dose: Not Given Documented by: Glucagon (Glucagon,Human Recombinant 1 Mg Vial) 1 mg IM ASDIRECTED PRN PRN Reason: Hypoglycemia Heparin Sodium (Porcine) (Heparin Sodium 5,000 Units/Ml Vial) 5,000 units SUBCUT BID [facility] Last Admin: 09/06/21 09:58 Dose: 5,000 units Documented by: Lactated Ringer's (Ringers, Lactated) 1,000 mls @ 150 mls/hr IV ASDIRECTED [facility] Stop: 09/05/21 18:00 Last Admin: 09/05/21 14:15 Dose: 150 mls/hr Documented by: Bamlanivimab 700 mg/Etesevimab 1,400 mg/ Sodium Chloride 160 mls @ 310 mls/hr IV ONETIME ONE Stop: 09/05/21 18:30 Last Admin: 09/05/21 17:50 Dose: 310 mls/hr Documented by: Lactated Ringer's (Ringers, Lactated) 1,000 mls @ 75 mls/hr IV ASDIRECTED [facility] Magnesium Sulfate 2 gm/ Premix 50 mls @ 25 mls/hr IV ONETIME ONE Stop: 09/06/21 16:35 Last Admin: 09/06/21 18:25 Dose: 25 mls/hr Documented by: Insulin Glargine (Insulin Glarg,Human.Rec.Analog 100 Unit/Ml) 5 unit SUBCUT ONETIME ONE Stop: 09/06/21 21:46 Last Admin: 09/06/21 22:26 Dose: 5 units Documented by: Insulin Glargine (Insulin Glarg,Human.Rec.Analog 100 Unit/Ml) 8 unit SUBCUT DAILY [facility] Last Admin: 09/08/21 09:08 Dose: Not Given Documented by: Insulin Glargine (Insulin Glarg,Human.Rec.Analog 100 Unit/Ml) 12 unit SUBCUT DAILY [facility] Last Admin: 09/08/21 10:12 Dose: Not Given Documented by: Insulin Glargine (Insulin Glarg,Human.Rec.Analog 100 Unit/Ml) 10 unit SUBCUT DAILY [facility] Last Admin: 09/08/21 10:12 Dose: Not Given Documented by: Iopamidol (Iopamidol 755 Mg/Ml 100 Ml Bottle) 100 ml IVPUSH ONETIME ONE Stop: 09/05/21 15:19 Last Admin: 09/05/21 15:19 Dose: 65 ml Documented by: Methylprednisolone Sodium Succinate (Methylprednisolone Sodium Succinate 125 Mg/2 Ml Sdv) 125 mg IVPUSH ASDIRECTED PRN PRN Reason: hypersensitivity reaction Methylprednisolone Sodium Succinate (Methylprednisolone Sodium Succinate 40 Mg/1 Ml Sdv) 20 mg IVPUSH ONETIME ONE Stop: 09/06/21 12:40 Last Admin: 09/06/21 13:41 Dose: 20 mg Documented by: Non-Formulary Medication (Calcium Carbonate/Vitamin D3) 1 tab PO BID [facility] Last Admin: 09/09/21 00:50 Dose: Not Given Documented by: Non-Formulary Medication (Dulaglutide [Trulicity]) 0.75 mg SQ Q7D [facility] Last Admin: 09/07/21 01:05 Dose: Not Given Documented by: Non-Formulary Medication (Prednisolone [Millipred]) 5 mg PO DAILY [facility] Last Admin: 09/07/21 01:01 Dose: Not Given Documented by: Pantoprazole Sodium (Pantoprazole 40 Mg Tab.Cr) 40 mg PO ACBREAKFAST [facility] Last Admin: 09/09/21 06:01 Dose: 40 mg Documented by: Prednisone (Prednisone 5 Mg Tab) 5 mg PO WITHBREAKFAST [facility] Last Admin: 09/08/21 09:47 Dose: 5 mg Documented by: - Exam General: Alert, Oriented, Cooperative, No Acute Distress HEENT: Mucous Membr. Moist/[place] Neck: Supple, Trachea Midline, No Thyromegaly. No: Lymphadenopathy Lungs: Normal Respiratory Effort, Crackles (in the bases bilaterally (L>R)) Cardiovascular: Regular Rate, Regular Rhythm, No Murmurs GI/Abdominal Exam: Normal Bowel Sounds, Soft, Non-Tender, No Organomegaly, No Distention, No Mass Extremities: Normal Inspection, Non-Tender, No Pedal Edema, Normal Capillary Refill Peripheral Pulses: 2+: Radial (L), Radial (R) Skin: Warm, Dry, Intact Neurological: No New Focal Deficit - Patient Data Lab Results Last 24 hrs: Laboratory Results - last 24 hr 09/07/21 09/07/21 09/08/21 Range/Units 17:56 22:07 06:10 Sodium (136-145) mmol/L Potassium (3.5-5.1) mmol/L Chloride (98-107) mmol/L Carbon Dioxide (21-32) mmol/L Anion Gap (5-15) mmol/L BUN (7-18) mg/dL Creatinine (0.55-1.02) mg/dL Est Cr Clr Drug Dosing mL/min Estimated GFR (MDRD) Glucose (70-99) mg/dL POC Glucose 214 H 281 H 147 H (70-99) mg/dL Calcium (8.5-10.1) mg/dL 09/08/21 09/08/21 09/08/21 Range/Units 07:39 08:18 11:49 Sodium 135 L (136-145) mmol/L Potassium 3.9 (3.5-5.1) mmol/L Chloride 96 L (98-107) mmol/L Carbon Dioxide 34 H (21-32) mmol/L Anion Gap 8.9 (5-15) mmol/L BUN 23 H (7-18) mg/dL Creatinine 1.1 H (0.55-1.02) mg/dL Est Cr Clr Drug Dosing 37.60 mL/min Estimated GFR (MDRD) 50 Glucose 129 H (70-99) mg/dL POC Glucose 126 H 150 H (70-99) mg/dL Calcium 8.7 (8.5-10.1) mg/dL 09/08/21 09/08/21 09/09/21 Range/Units 17:50 20:18 04:36 Sodium (136-145) mmol/L Potassium (3.5-5.1) mmol/L Chloride (98-107) mmol/L Carbon Dioxide (21-32) mmol/L Anion Gap (5-15) mmol/L BUN (7-18) mg/dL Creatinine (0.55-1.02) mg/dL Est Cr Clr Drug Dosing mL/min Estimated GFR (MDRD) Glucose (70-99) mg/dL POC Glucose 260 H 278 H 134 H (70-99) mg/dL Calcium (8.5-10.1) mg/dL 09/09/21 Range/Units 06:08 Sodium (136-145) mmol/L Potassium (3.5-5.1) mmol/L Chloride (98-107) mmol/L Carbon Dioxide (21-32) mmol/L Anion Gap (5-15) mmol/L BUN (7-18) mg/dL Creatinine (0.55-1.02) mg/dL Est Cr Clr Drug Dosing mL/min Estimated GFR (MDRD) Glucose (70-99) mg/dL POC Glucose 158 H (70-99) mg/dL Calcium (8.5-10.1) mg/dL Result Diagrams: 09/08/21 08:18 09/08/21 08:18 Sepsis Event Note - Evaluation Sepsis Screening Result: No Definite Risk - Focused Exam Vital Signs: Vital Signs Temp Pulse Resp BP Pulse Ox 09/09/21 06:12 72 20 143/74 H 97 09/09/21 04:57 35.9 C L 67 20 160/53 H 95 09/09/21 01:02 96 09/09/21 00:30 36.5 C 69 20 159/71 H 95 09/09/21 00:08 36.2 C 67 18 96 09/08/21 22:00 95 - Problem List & Annotations (1) COVID-19 SNOMED Code(s): 799818315 Code(s): U07.1 - COVID-19 Status: Acute Current Visit: Yes (2) Hypotension due to hypovolemia SNOMED Code(s): 03029489 Code(s): I95.89 - OTHER HYPOTENSION; E86.1 - HYPOVOLEMIA Status: Acute Current Visit: Yes (3) BARBARA (acute kidney injury) SNOMED Code(s): 67394085, 47176128 Code(s): N17.9 - ACUTE KIDNEY FAILURE, UNSPECIFIED Status: Acute Current Visit: Yes (4) Pulmonary fibrosis SNOMED Code(s): 24305279 Code(s): J84.10 - PULMONARY FIBROSIS, UNSPECIFIED Status: Chronic Current Visit: Yes (5) Chronic respiratory failure with hypoxia SNOMED Code(s): 853610122 Code(s): J96.11 - CHRONIC RESPIRATORY FAILURE WITH HYPOXIA Status: Chronic Current Visit: Yes (6) NSTEMI (non-ST elevated myocardial infarction) SNOMED Code(s): 68493529 Code(s): I21.4 - NON-ST ELEVATION (NSTEMI) MYOCARDIAL INFARCTION Status: Acute Current Visit: Yes (7) CHF (congestive heart failure) SNOMED Code(s): 54152930 Code(s): I50.9 - HEART FAILURE, UNSPECIFIED Status: Acute Current Visit: Yes Qualifiers: Heart failure type: diastolic Heart failure chronicity: acute on chronic Qualified Code(s): I50.33 - Acute on chronic diastolic (congestive) heart failure (8) Diabetes SNOMED Code(s): 45992926 Code(s): E11.9 - TYPE 2 DIABETES MELLITUS WITHOUT COMPLICATIONS Status: Chronic Current Visit: Yes Qualifiers: Diabetes mellitus type: type 2 Diabetes mellitus fci insulin use: 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 Diabetes mellitus complication status: without complication Qualified Code(s): E11.9 - Type 2 diabetes mellitus without complications (9) Congenital heart disease Status: Chronic Current Visit: Yes (10) Obesity SNOMED Code(s): 106425139, 085379467 Code(s): E66.9 - OBESITY, UNSPECIFIED Status: Chronic Current Visit: Yes Qualifiers: Obesity type: due to excess calories Obesity classification: adult class 1 (BMI 30 - 34.9) Serious obesity comorbidity presence: with serious comorbidity Body mass index: BMI 34.0-34.9 Qualified Code(s): E66.09 - Other obesity due to excess calories; Z68.34 - Body mass index [BMI] 34.0-34.9, adult (11) Anxiety SNOMED Code(s): 62978946 Code(s): F41.9 - ANXIETY DISORDER, UNSPECIFIED Status: Chronic Current Visit: No Annotation/Comment:: Lorazepam and effexor continued. (12) GERD (gastroesophageal reflux disease) SNOMED Code(s): 652342975 Code(s): K21.9 - GASTRO-ESOPHAGEAL REFLUX DISEASE WITHOUT ESOPHAGITIS Status: Chronic Current Visit: No Qualifiers: Esophagitis presence: without esophagitis Qualified Code(s): K21.9 - Gastro-esophageal reflux disease without esophagitis Annotation/Comment:: Omeprazole continued. (13) Hyperlipidemia SNOMED Code(s): 30220351 Code(s): E78.5 - HYPERLIPIDEMIA, UNSPECIFIED Status: Chronic Current Visit: No Qualifiers: Hyperlipidemia type: unspecified Qualified Code(s): E78.5 - Hyperlipidemia, unspecified Annotation/Comment:: Lipitor continued. (14) Hypertension SNOMED Code(s): 50354019 Code(s): I10 - ESSENTIAL (PRIMARY) HYPERTENSION Status: Chronic Current Visit: No Qualifiers: Hypertension type: primary hypertension Qualified Code(s): I10 - Essential (primary) hypertension Annotation/Comment:: ASA, lisinopril, and metoprolol were continued. (15) Insomnia SNOMED Code(s): 284606135 Code(s): G47.00 - INSOMNIA, UNSPECIFIED Status: Chronic Current Visit: No Qualifiers: Insomnia type: unspecified Qualified Code(s): G47.00 - Insomnia, unspecified Annotation/Comment:: Lorazepam and amitriptyline continued. (16) Restless leg syndrome SNOMED Code(s): 61212969 Code(s): G25.81 - RESTLESS LEGS SYNDROME Status: Chronic Current Visit: No Annotation/Comment:: Home medications continued. (17) Rheumatoid arthritis SNOMED Code(s): 05787421 Code(s): M06.9 - RHEUMATOID ARTHRITIS, UNSPECIFIED Status: Chronic Current Visit: No Qualifiers: Rheumatoid arthritis location: unspecified site Rheumatoid factor presence: without rheumatoid factor Qualified Code(s): M06.00 - Rheumatoid arthritis without rheumatoid factor, unspecified site Annotation/Comment:: Gabapentin and PRN ibuprofen continued. Methotrexate held per rheumatology. Will hold home prednisone as she will be getting higher doses as above. - Problem List Review Problem List Initiated/Reviewed/Updated: Yes - My Orders Last 24 Hours: My Active Orders 09/09/21 09:00 predniSONE 40 mg PO WITHBREAKFAST 09/09/21 12:00 Furosemide [Lasix] 20 mg PO Q24H 09/09/21 20:00 Pantoprazole [ProTONIX] 40 mg PO BID 09/10/21 05:11 BASIC METABOLIC PANEL,BMP [CHEM] Routine CBC WITH AUTO DIFF [HEME] Routine - Assessment Assessment:: 61 yo female hospital day #4 (acute day #3) admitted with hypotension and dehydration related to severe nausea from COVID-19. Vitals have now been stable and labs improved. She continues to struggle with a lot of headaches, dizziness, and nausea. - Plan Plan:: #1 COVID-19 - Still on her home O2 requirements. - Respiratory symptoms really are not the biggest issue, more GI. - Continue anti-emetics. - With the component of dizziness and headaches, will try a higher dose of prednisone to see if that will help. Could also consider PT eval in case there is any BPPV contributing. - Otherwise, no indication for remdesivir as she is on her usual oxygen requirements. #2 Hypotension due to hypovolemia, resolved #3 BARBARA, resolved - Patient is now actually on the high side for BP. Creatinine down to 1.1 yesterday, not checked today. - Patient is at risk for recurrence of dehydration and BARBARA until her symptoms are better controlled for her to eat/drink better. - Holding on further IV fluids for now but will resume as indicated. - Recheck labs in the am. #4 Pulmonary fibrosis #5 Chronic hypoxic respiratory failure - Patient is on her usual amount of home oxygen. - Respiratory symptoms really not the issue with her COVID, as above. - Continue home medications. #6 NSTEMI - Was treated conservatively as felt to be secondary to above. - Will need outpatient cardiology follow-up. #7 Acute on chronic diastolic CHF - Occurred day after large fluid load. - Responded well to diuresis and she is on her home medications without issue. #8 Diabetes - Glucoses have been acceptable. - Holding trulicity for now. - On insulin instead. - Will monitor glucoses closely with increase in prednisone as planned above. #9 Congenital heart disease #10 Obesity #11 Anxiety #12 GERD #13 HLD #14 HTN #15 Insomnia #16 RLS #17 RA - Continue home medications with the following modifications: - Hold RA meds besides prednisone due to immunosuppressive nature. - Increase pantoprazole to BID in light of epigastric pain and plans for increased prednisone Patient will remain on acute today - hopefully she will have better symptom relief in the next 24-48 hours in order for d/c home. Needs to be able to move around without severe dizziness and eat/drink enough to stay hydrated. Detailed plans as above. Recheck labs in the am. Code status is full - discussed on admission. Lovenox for VTE prophylaxis.
[2021-09-09] MEDS: Zinc Sulfate 220 MG Cap PO SCH (09:51)
[2021-09-09] MEDS: predniSONE 20 MG Tab PO SCH (09:51)
[2021-09-09] MEDS: Cholecalciferol (Vitamin D3) 25 MCG Tab PO SCH (09:52)
[2021-09-09] MEDS: Furosemide 40 MG Tab PO SCH (09:52)
[2021-09-09] MEDS: Multivitamins with Iron/Calcium/Folic Acid/Minerals Tab PO SCH (09:52)
[2021-09-09] MEDS: Aspirin 81 MG Tab.EC PO SCH (09:52)
[2021-09-09] MEDS: Spironolactone 25 MG Tab PO SCH (09:53)
[2021-09-09] MEDS: DULoxetine 60 MG Cap PO SCH (09:53)
[2021-09-09] MEDS: Pregabalin 25 MG Cap PO SCH ×2 (09:53→20:17)
[2021-09-09] MEDS: Ondansetron 4 MG Tab.DIS PO PRN (09:53)
[2021-09-09] MEDS: valACYclovir 1,000 MG Tab PO SCH ×2 (09:53→20:17)
[2021-09-09] MEDS: Metoprolol Succinate 25 MG Tab.ER PO SCH (09:53)
[2021-09-09] MEDS: Insulin Glarg,Human.Rec.Analog 100 Unit/ML SUBCUT SCH (09:54)
[2021-09-09] MEDS: Furosemide 20 MG Tab PO SCH (10:23)
[2021-09-09] MEDS: predniSONE 5 MG Tab PO SCH (10:23)
[2021-09-09] MEDS ORDERED: Furosemide 20 MG Tab PO SCH (12:00)
[2021-09-09] MEDS: traMADol 50 MG Tab PO PRN ×2 (14:09→20:18)
[2021-09-09] MEDS: Enoxaparin 40 MG/0.4 ML Syringe SUBCUT SCH (20:16)
[2021-09-09] MEDS: atorvaSTATin 10 MG Tab PO SCH (20:16)
[2021-09-09] MEDS: Latanoprost 0.005% Ophth Soln 2.5 ML Bottle EYEBOTH SCH (20:18)
[2021-09-10 03:08] VITALS: BP 142/70
[2021-09-10 07:32] LABS: ANION GAP 6.2 mmol/L (5-15)
[2021-09-10] MEDS: Acetaminophen 325 MG Tab PO PRN (07:55)
[2021-09-10] MEDS: Pregabalin 25 MG Cap PO SCH (07:55)
[2021-09-10] MEDS: valACYclovir 1,000 MG Tab PO SCH (07:55)
[2021-09-10] MEDS: DULoxetine 60 MG Cap PO SCH (07:55)
[2021-09-10] MEDS: Metoprolol Succinate 25 MG Tab.ER PO SCH (07:56)
[2021-09-10] MEDS: Furosemide 40 MG Tab PO SCH (07:56)
[2021-09-10] MEDS: Ondansetron 4 MG Tab.DIS PO PRN (07:56)
[2021-09-10] MEDS: Spironolactone 25 MG Tab PO SCH (07:56)
[2021-09-10] MEDS: Cholecalciferol (Vitamin D3) 25 MCG Tab PO SCH (07:56)
[2021-09-10] MEDS: Multivitamins with Iron/Calcium/Folic Acid/Minerals Tab PO SCH (07:56)
[2021-09-10] MEDS: Pantoprazole 40 MG Tab.CR PO SCH (07:56)
[2021-09-10] MEDS: Zinc Sulfate 220 MG Cap PO SCH (07:57)
[2021-09-10] MEDS: predniSONE 20 MG Tab PO SCH (07:57)
[2021-09-10] MEDS: Aspirin 81 MG Tab.EC PO SCH (07:57)
[2021-09-10 07:58] VITALS: PULSE 75
[2021-09-10] MEDS: Insulin Glarg,Human.Rec.Analog 100 Unit/ML SUBCUT SCH (07:58)
[2021-09-10] MEDS ORDERED: Calcium Carbonate/Vitamin D3 1250 MG-5 MCG Tab PO SCH (08:00)
--- NOTE | 2021-09-10 09:11 | PCM.DCSUM1 ---
Discharge Summary - Hospital Course Brief History: Mrs. Metzger is a 61 yo female who was admitted with BARBARA and severe dehydration after she was found to have systolic blood pressures in the 50's systolic when she presented to [facility] to receive MAB for COVID-19. This is in the setting of significant nausea and poor oral intake related to the COVID. - Discharge Data Discharge Date: 09/10/21 Discharge Disposition: Home, Self-Care 01 Condition: Good - Referral to Home Health Primary Care Physician: Vivien Lawrence MD - Discharge Diagnosis/Problem(s) (1) COVID-19 SNOMED Code(s): 116492029 ICD Code: U07.1 - COVID-19 Status: Acute Current Visit: Yes (2) Hypotension due to hypovolemia SNOMED Code(s): 90898145 ICD Code: I95.89 - OTHER HYPOTENSION; E86.1 - HYPOVOLEMIA Status: Acute Current Visit: Yes (3) BARBARA (acute kidney injury) SNOMED Code(s): 66339403, 22412689 ICD Code: N17.9 - ACUTE KIDNEY FAILURE, UNSPECIFIED Status: Acute Current Visit: Yes (4) Pulmonary fibrosis SNOMED Code(s): 30727463 ICD Code: J84.10 - PULMONARY FIBROSIS, UNSPECIFIED Status: Chronic Current Visit: Yes (5) Chronic respiratory failure with hypoxia SNOMED Code(s): 948541013 ICD Code: J96.11 - CHRONIC RESPIRATORY FAILURE WITH HYPOXIA Status: Chronic Current Visit: Yes (6) NSTEMI (non-ST elevated myocardial infarction) SNOMED Code(s): 50138828 ICD Code: I21.4 - NON-ST ELEVATION (NSTEMI) MYOCARDIAL INFARCTION Status: Acute Current Visit: Yes (7) CHF (congestive heart failure) SNOMED Code(s): 41383145 ICD Code: I50.9 - HEART FAILURE, UNSPECIFIED Status: Acute Current Visit: Yes Qualifiers: Heart failure type: diastolic Heart failure chronicity: acute on chronic Qualified Code(s): I50.33 - Acute on chronic diastolic (congestive) heart failure (8) Diabetes SNOMED Code(s): 03107100 ICD Code: E11.9 - TYPE 2 DIABETES MELLITUS WITHOUT COMPLICATIONS Status: Chronic Current Visit: Yes Qualifiers: Diabetes mellitus type: type 2 Diabetes mellitus senior living insulin use: without superintendent [employer] use Diabetes mellitus complication status: without complication Qualified Code(s): E11.9 - Type 2 diabetes mellitus without complications (9) Congenital heart disease Status: Chronic Current Visit: Yes (10) Obesity SNOMED Code(s): 054910637, 256014401 ICD Code: E66.9 - OBESITY, UNSPECIFIED Status: Chronic Current Visit: Yes Qualifiers: Obesity type: due to excess calories Obesity classification: adult class 1 (BMI 30 - 34.9) Serious obesity comorbidity presence: with serious comorbidity Body mass index: BMI 34.0-34.9 Qualified Code(s): E66.09 - Other obesity due to excess calories; Z68.34 - Body mass index [BMI] 34.0-34.9, adult (11) Anxiety SNOMED Code(s): 70132847 ICD Code: F41.9 - ANXIETY DISORDER, UNSPECIFIED Status: Chronic Current Visit: No Problem Details: Lorazepam and effexor continued. (12) GERD (gastroesophageal reflux disease) SNOMED Code(s): 497977696 ICD Code: K21.9 - GASTRO-ESOPHAGEAL REFLUX DISEASE WITHOUT ESOPHAGITIS Status: Chronic Current Visit: No Problem Details: Omeprazole continued. Qualifiers: Esophagitis presence: without esophagitis Qualified Code(s): K21.9 - Gastro -esophageal reflux disease without esophagitis (13) Hyperlipidemia SNOMED Code(s): 59715524 ICD Code: E78.5 - HYPERLIPIDEMIA, UNSPECIFIED Status: Chronic Current Visit: No Problem Details: Lipitor continued. Qualifiers: Hyperlipidemia type: unspecified Qualified Code(s): E78.5 - Hyperlipidemia, unspecified (14) Hypertension SNOMED Code(s): 27711474 ICD Code: I10 - ESSENTIAL (PRIMARY) HYPERTENSION Status: Chronic Current Visit: No Problem Details: ASA, lisinopril, and metoprolol were continued. Qualifiers: Hypertension type: primary hypertension Qualified Code(s): I10 - Essential (primary) hypertension (15) Insomnia SNOMED Code(s): 103780235 ICD Code: G47.00 - INSOMNIA, UNSPECIFIED Status: Chronic Current Visit: No Problem Details: Lorazepam and amitriptyline continued. Qualifiers: Insomnia type: unspecified Qualified Code(s): G47.00 - Insomnia, unspecified (16) Restless leg syndrome SNOMED Code(s): 51729764 ICD Code: G25.81 - RESTLESS LEGS SYNDROME Status: Chronic Current Visit: No Problem Details: Home medications continued. (17) Rheumatoid arthritis SNOMED Code(s): 91000272 ICD Code: M06.9 - RHEUMATOID ARTHRITIS, UNSPECIFIED Status: Chronic Current Visit: No Problem Details: Gabapentin and PRN ibuprofen continued. Methotrexate held per rheumatology. Will hold home prednisone as she will be getting higher doses as above. Qualifiers: Rheumatoid arthritis location: unspecified site Rheumatoid factor presence: without rheumatoid factor Qualified Code(s): M06.00 - Rheumatoid arthritis without rheumatoid factor, unspecified site - Patient Summary/Data Operative Procedure(s) Performed: none Complications: none Consults: Consultations 09/08/21 09:46 PT Evaluation and Treatment [CONS] Routine Labs Pending at D/C: none Recommended Follow-up Testing/Procedures: CBC, BMP Planned Operative Procedure(s) after DC: none Hospital Course: The patient was initially IV fluid resuscitated in the ER and then IV fluids were continued upon admission. Her creatinine trended down and her vital signs improved. In fact, on hospital day #3, she did have some fluid overload, which resolved with resuming her oral diuretics. Since then, she has not required further IV fluids. Her nausea has been steadily improving and she has eaten and drank much better over the last 24 hours. Her diarrhea has resolved after Imodium a couple days ago. She has not had any fever or chills. She has not required oxygen supplementation above what she is typically on at home. She is coughing and this has been fairly steady. No shortness of breath or chest pain. She has also been struggling with significant headaches and dizziness, both of which are slightly improved today. She has been able to move around her room better in the past 24 hours. She feels comfortable going home as long as she has help. Her also has COVID but we did call him and he is feeling better enough that he could help her if need be. She is comfortable going home then. She will follow-up in clinic within 1 week, sooner if need be. We will continue the higher dosing of prednisone until follow-up. Her hospitalization was otherwise uncomplicated. - Patient Instructions Diet: Usual Diet as Tolerated Activity: As Tolerated - Discharge Plan *PRESCRIPTION DRUG MONITORING PROGRAM REVIEWED*: No *COPY OF PRESCRIPTION DRUG MONITORING REPORT IN PATIENT MATTHEW: No Prescriptions/Med Rec: predniSONE 40 mg PO WITHBREAKFAST #14 tablet ondansetron HCL [Zofran] 4 mg PO TID PRN #20 PRN Reason: Nausea Home Medications: Home Meds Aspirin [Halfprin] 81 mg PO DAILY 12/26/16 [History] Ibuprofen 400 - 800 mg PO Q6HR PRN 12/26/16 [History] Metoprolol Succinate [Toprol XL] 25 mg PO DAILY 12/26/16 [History] Multivitamin [Multi-Vitamin Daily] 1 tab PO DAILY 12/26/16 [History] atorvaSTATin [Lipitor] 40 mg PO BEDTIME 12/26/16 [History] Furosemide [Lasix] 20 mg PO BEDTIME 12/12/17 [History] LORazepam [Ativan] 0.25 - 0.5 mg PO BEDTIME 12/12/17 [History] Albuterol Sulfate [Albuterol Sulfate Hfa] 2 puff IH Q4H PRN 09/05/21 [History] Alendronate Sodium [Fosamax] 70 mg PO Q7D 09/05/21 [History] Calcium Carbonate/Vitamin D3 [Calcium 600-Vit D3 800 Tablet] 1 each PO DAILY 09/05/21 [History] Calcium Carbonate/Vitamin D3 [Calcium Carbonate/Vitamin D 600 MG-200 Unit] 1 tab PO BID 09/05/21 [History] Cyclobenzaprine [Flexeril] 10 mg PO TID PRN 09/05/21 [History] DULoxetine [Cymbalta] 60 mg PO DAILY 09/05/21 [History] Dulaglutide [Trulicity] 0.75 mg SQ Q7D 09/05/21 [History] Furosemide [Lasix] 40 mg PO DAILY 09/05/21 [History] Latanoprost [Xalatan 0.005% Ophth Soln] 1 drop EYEBOTH BEDTIME 09/05/21 [History] Leflunomide [Arava] 10 mg PO DAILY 09/05/21 [History] Losartan Potassium 100 mg PO DAILY 09/05/21 [History] Meloxicam [Mobic] 7.5 mg PO DAILY 09/05/21 [History] Naloxone HCl [Narcan] 4 mg NS ASDIRECTED 09/05/21 [History] Pantoprazole Sodium [Protonix] 40 mg PO DAILY 09/05/21 [History] Pregabalin [Lyrica] 75 mg PO BID 09/05/21 [History] Spironolactone [Aldactone] 50 mg PO DAILY 09/05/21 [History] glipiZIDE [Glipizide ER] 10 mg PO BID 09/05/21 [History] valACYclovir [Valtrex] 1,000 mg PO BID 09/05/21 [History] ondansetron HCL [Zofran] 4 mg PO TID PRN #20 09/10/21 [Rx] predniSONE 40 mg PO WITHBREAKFAST #14 tablet 09/10/21 [Rx] traMADol [Ultram] 50 mg PO Q4H PRN tablet 09/10/21 [Rx] Forms: ED Department Discharge Referrals: Vivien Lawrence MD [Primary Care Provider] - 09/16/21 9:30 am (You have a follow up appt. with Dr. Laquita Lawrence on September 16, 2021 at 9:30am----[facility]. Please wear a mask to your appt.) - Discharge Summary/Plan Comment DC Time >30 min.: No Total # of Minutes for Discharge Time: 20 - General Info Date of Service: 09/10/21 Subjective Update: Patient is feeling better this morning. Headache still present but less intense. Dizziness also less intense when she gets up and moves around. Nausea is improved and she has been eating/drinking better. No vomiting or diarrhea. No fever. Still coughing but no shortness of breath. - Review of Systems General: Reports: No Symptoms HEENT: Reports: No Symptoms Pulmonary: Reports: Cough. Denies: Shortness of Breath Cardiovascular: Reports: No Symptoms Gastrointestinal: Reports: Abdominal Pain, Decreased Appetite, Nausea. Denies: Diarrhea, Vomiting Genitourinary: Reports: No Symptoms Musculoskeletal: Reports: No Symptoms Skin: Reports: No Symptoms Neurological: Reports: No Symptoms - Patient Data Vitals - Most Recent: Last Vital Signs Temp 36.5 C 09/10/21 02:00 Pulse 75 09/10/21 07:56 Resp 18 09/10/21 02:00 BP 142/70 H 09/10/21 07:56 Pulse Ox 94 L 09/10/21 02:00 Weight - Most Recent: 80.014 kg I&O - Last 24 hours: Intake & Output 09/09/21 09/10/21 09/10/21 22:59 06:59 14:59 Intake Total 120 Output Total 1300 Balance -1180 Lab Results - Last 24 hrs: Laboratory Results - last 24 hr 09/10/21 09/10/21 Range/Units 06:52 06:52 WBC 5.2 (4.0-10.0) x10^3/uL RBC 4.11 (4.00-5.50) x10^6/uL Hgb 11.6 L (12.0-16.0) g/dL Hct 35.0 (33.0-47.0) % MCV 85.2 (78.0-93.0) fL MCH 28.2 (26.0-32.0) pg MCHC 33.1 (32.0-36.0) g/dL RDW Coeff of [place] 16.2 H (10.0-15.0) % Plt Count 327 D (130-400) x10^3/uL Immature Gran % (Auto) 0.20 (0.00-0.43) % Neut % (Auto) 58.9 (50.0-80.0) % Lymph % (Auto) 21.5 L (25.0-50.0) % [place] % (Auto) 18.8 H (2.0-11.0) % Eos % (Auto) 0.2 (0.0-4.0) % Baso % (Auto) 0.4 (0.2-1.2) % Neut # (Auto) 3.1 (1.8-7.7) x10^3/uL Lymph # (Auto) 1.1 (1.0-4.8) x10^3/uL [place] # (Auto) 1.0 H (0.0-0.8) x10^3/uL Eos # (Auto) 0.0 (0.0-0.5) x10^3/uL Baso # (Auto) 0.0 (0.0-0.2) x10^3/uL Immature Gran # (Auto) 0.01 (0.00-0.07) x10^3/uL Sodium 135 L (136-145) mmol/L Potassium 4.2 (3.5-5.1) mmol/L Chloride 94 L (98-107) mmol/L Carbon Dioxide 39 H (21-32) mmol/L Anion Gap 6.2 (5-15) mmol/L BUN 17 (7-18) mg/dL Creatinine 1.1 H (0.55-1.02) mg/dL Est Cr Clr Drug Dosing 37.60 mL/min Estimated GFR (MDRD) 50 Glucose 189 H (70-99) mg/dL Calcium 9.6 (8.5-10.1) mg/dL Med Orders - Current: Current Medications Acetaminophen (Acetaminophen 325 Mg Tab) 650 mg PO Q4H PRN PRN Reason: Pain (mild 1-3) Last Admin: 09/10/21 07:55 Dose: 650 mg Documented by: Albuterol (Albuterol 0.083% 2.5 Mg/3 Ml Neb Soln) 2.5 mg NEB Q4HR PRN PRN Reason: Cough Albuterol (Albuterol Hfa 18 Gm Inhaler) 0 gm INH Q4H PRN PRN Reason: shortness of breath Aspirin (Aspirin 81 Mg Tab.Ec) 162 mg PO DAILY [facility] Last Admin: 09/10/21 07:57 Dose: 162 mg Documented by: Atorvastatin Calcium (Atorvastatin 10 Mg Tab) 40 mg PO BEDTIME [facility] Last Admin: 09/09/21 20:16 Dose: 40 mg Documented by: Calcium Carbonate (Calcium Carbonate/Vitamin D3 1250 Mg-5 Mcg Tab) 1 tab PO DAILY [facility] Last Admin: 09/10/21 07:58 Dose: 1 tab Documented by: Cholecalciferol (Cholecalciferol (Vitamin D3) 25 Mcg Tab) 25 mcg PO DAILY [facility] Last Admin: 09/10/21 07:56 Dose: 25 mcg Documented by: Cyclobenzaprine HCl (Cyclobenzaprine 10 Mg Tab) 10 mg PO TID PRN PRN Reason: Muscle Spasm - Painful Last Admin: 09/05/21 20:09 Dose: 10 mg Documented by: Dextrose/Water (50% Dextrose In Water 50 Ml Syringe) 50 ml IV ASDIRECTED PRN PRN Reason: Hypoglycemia Dextrose/Water (50% Dextrose In Water 50 Ml Syringe) 50 ml IVPUSH ASDIRECTED PRN PRN Reason: Hypoglycemia Duloxetine HCl (Duloxetine 60 Mg Cap) 60 mg PO DAILY [facility] Last Admin: 09/10/21 07:55 Dose: 60 mg Documented by: Enoxaparin Sodium (Enoxaparin 40 Mg/0.4 Ml Syringe) 40 mg SUBCUT Q24H [facility] Last Admin: 09/09/21 20:16 Dose: 40 mg Documented by: Furosemide (Furosemide 40 Mg Tab) 40 mg PO DAILY [facility] Last Admin: 09/10/21 07:56 Dose: 40 mg Documented by: Furosemide (Furosemide 20 Mg Tab) 20 mg PO DAILY@1200 [facility] Last Admin: 09/09/21 14:01 Dose: 20 mg Documented by: Glucagon (Glucagon,Human Recombinant 1 Mg Vial) 1 mg IM ASDIRECTED PRN PRN Reason: Hypoglycemia Insulin Glargine (Insulin Glarg,Human.Rec.Analog 100 Unit/Ml) 8 unit SUBCUT DAILY [facility] Last Admin: 09/10/21 07:58 Dose: 8 unit Documented by: Latanoprost (Latanoprost 0.005% Ophth Soln 2.5 Ml Bottle) 0 ml EYEBOTH BEDTIME [facility] Last Admin: 09/09/21 20:18 Dose: 1 drop Documented by: Loperamide HCl (Loperamide 2 Mg Cap) 2 mg PO Q4H PRN PRN Reason: Diarrhea Last Admin: 09/06/21 13:46 Dose: 2 mg Documented by: Lorazepam (Lorazepam 0.5 Mg Tab) 0.25 - 0.5 mg PO BEDTIME PRN PRN Reason: Insomnia Last Admin: 09/05/21 23:33 Dose: 0.5 mg Documented by: Meloxicam (Meloxicam 7.5 Mg Tab) 7.5 mg PO DAILY PRN PRN Reason: Pain Metoprolol Succinate (Metoprolol Succinate 25 Mg Tab.Er) 25 mg PO DAILY [facility] Last Admin: 09/10/21 07:56 Dose: 25 mg Documented by: Multivitamins/Minerals (Multivitamins With Iron/Calcium/Folic Acid/Minerals Tab) 1 tab PO DAILY [facility] Last Admin: 09/10/21 07:56 Dose: 1 tab Documented by: Ondansetron HCl (Ondansetron 4 Mg Tab.Dis) 4 mg PO TID PRN PRN Reason: Nausea Last Admin: 09/10/21 07:56 Dose: 4 mg Documented by: Ondansetron HCl (Ondansetron 4 Mg/2 Ml Sdv) 4 mg IVPUSH Q8H PRN PRN Reason: Nausea Last Admin: 09/08/21 14:59 Dose: 4 mg Documented by: Pantoprazole Sodium (Pantoprazole 40 Mg Tab.Cr) 40 mg PO BID [facility] Last Admin: 09/10/21 07:56 Dose: 40 mg Documented by: Prednisone (Prednisone 20 Mg Tab) 40 mg PO WITHBREAKFAST [facility] Last Admin: 09/10/21 07:57 Dose: 40 mg Documented by: Pregabalin (Pregabalin 25 Mg Cap) 75 mg PO BID [facility] Last Admin: 09/10/21 07:55 Dose: 75 mg Documented by: Sodium Chloride (Sodium Chloride 0.9% 10 Ml Syringe) 30 ml FLUSH ASDIRECTED [facility] Spironolactone (Spironolactone 25 Mg Tab) 50 mg PO DAILY [facility] Last Admin: 09/10/21 07:56 Dose: 50 mg Documented by: Tramadol HCl (Tramadol 50 Mg Tab) 50 mg PO Q4H PRN PRN Reason: Pain Last Admin: 09/09/21 20:18 Dose: 50 mg Documented by: Valacyclovir HCl (Valacyclovir 1,000 Mg Tab) 1,000 mg PO BID [facility] Last Admin: 09/10/21 07:55 Dose: 1,000 mg Documented by: Zinc Sulfate (Zinc Sulfate 220 Mg Cap) 220 mg PO DAILY [facility] Last Admin: 09/10/21 07:57 Dose: 220 mg Documented by: Discontinued Medications Acetaminophen/Codeine Phosphate (Acetaminophen/Codeine 300-30 Mg Tab) 1 tab PO Q4H PRN PRN Reason: Pain Alendronate Sodium (Alendronate 70 Mg Tab) 70 mg PO Q7D [facility] Last Admin: 09/07/21 01:05 Dose: Not Given Documented by: Dextrose/Water (50% Dextrose In Water 50 Ml Syringe) Confirm Administered Dose 50 ml .ROUTE .STK-MED ONE Stop: 09/06/21 05:27 Last Admin: 09/06/21 05:28 Dose: 50 ml Documented by: Dextrose/Water (50% Dextrose In Water 50 Ml Syringe) 50 ml IV NOW STA Stop: 09/06/21 10:05 Last Admin: 09/06/21 17:57 Dose: Not Given Documented by: Dextrose/Water (50% Dextrose In Water 50 Ml Syringe) 50 ml IVPUSH ASDIRECTED PRN PRN Reason: Hypoglycemia Diphenhydramine HCl (Diphenhydramine 50 Mg/Ml Sdv) 50 mg IVPUSH ASDIRECTED PRN PRN Reason: hypersensitivity reaction Epinephrine HCl (Epinephrine 1 Mg/1 Ml Amp) 0.3 mg IM ASDIRECTED PRN PRN Reason: hypersensitivity reaction Famotidine (Famotidine 20 Mg/2 Ml Sdv) 20 mg IVPUSH ASDIRECTED PRN PRN Reason: hypersensitivity reaction Furosemide (Furosemide 20 Mg/2 Ml Vial) 20 mg IV ONETIME ONE Stop: 09/06/21 19:01 Last Admin: 09/06/21 19:07 Dose: 20 mg Documented by: Furosemide (Furosemide 20 Mg Tab) 20 mg PO DAILY [facility] Last Admin: 09/09/21 10:23 Dose: Not Given Documented by: Glipizide (Glipizide 10 Mg Tab.Er) 10 mg PO BID [facility] Last Admin: 09/07/21 01:01 Dose: Not Given Documented by: Glucagon (Glucagon,Human Recombinant 1 Mg Vial) 1 mg IM ASDIRECTED PRN PRN Reason: Hypoglycemia Heparin Sodium (Porcine) (Heparin Sodium 5,000 Units/Ml Vial) 5,000 units SUBCUT BID [facility] Last Admin: 09/06/21 09:58 Dose: 5,000 units Documented by: Lactated Ringer's (Ringers, Lactated) 1,000 mls @ 150 mls/hr IV ASDIRECTED [facility] Stop: 09/05/21 18:00 Last Admin: 09/05/21 14:15 Dose: 150 mls/hr Documented by: Bamlanivimab 700 mg/Etesevimab 1,400 mg/ Sodium Chloride 160 mls @ 310 mls/hr IV ONETIME ONE Stop: 09/05/21 18:30 Last Admin: 09/05/21 17:50 Dose: 310 mls/hr Documented by: Lactated Ringer's (Ringers, Lactated) 1,000 mls @ 75 mls/hr IV ASDIRECTED [facility] Magnesium Sulfate 2 gm/ Premix 50 mls @ 25 mls/hr IV ONETIME ONE Stop: 09/06/21 16:35 Last Admin: 09/06/21 18:25 Dose: 25 mls/hr Documented by: Insulin Glargine (Insulin Glarg,Human.Rec.Analog 100 Unit/Ml) 5 unit SUBCUT ONETIME ONE Stop: 09/06/21 21:46 Last Admin: 09/06/21 22:26 Dose: 5 units Documented by: Insulin Glargine (Insulin Glarg,Human.Rec.Analog 100 Unit/Ml) 8 unit SUBCUT DAILY [facility] Last Admin: 09/08/21 09:08 Dose: Not Given Documented by: Insulin Glargine (Insulin Glarg,Human.Rec.Analog 100 Unit/Ml) 12 unit SUBCUT DAILY [facility] Last Admin: 09/08/21 10:12 Dose: Not Given Documented by: Insulin Glargine (Insulin Glarg,Human.Rec.Analog 100 Unit/Ml) 10 unit SUBCUT DAILY [facility] Last Admin: 09/08/21 10:12 Dose: Not Given Documented by: Iopamidol (Iopamidol 755 Mg/Ml 100 Ml Bottle) 100 ml IVPUSH ONETIME ONE Stop: 09/05/21 15:19 Last Admin: 09/05/21 15:19 Dose: 65 ml Documented by: Methylprednisolone Sodium Succinate (Methylprednisolone Sodium Succinate 125 Mg/2 Ml Sdv) 125 mg IVPUSH ASDIRECTED PRN PRN Reason: hypersensitivity reaction Methylprednisolone Sodium Succinate (Methylprednisolone Sodium Succinate 40 Mg/1 Ml Sdv) 20 mg IVPUSH ONETIME ONE Stop: 09/06/21 12:40 Last Admin: 09/06/21 13:41 Dose: 20 mg Documented by: Non-Formulary Medication (Calcium Carbonate/Vitamin D3) 1 tab PO BID [facility] Last Admin: 09/09/21 00:50 Dose: Not Given Documented by: Non-Formulary Medication (Dulaglutide [Trulicity]) 0.75 mg SQ Q7D [facility] Last Admin: 09/07/21 01:05 Dose: Not Given Documented by: Non-Formulary Medication (Prednisolone [Millipred]) 5 mg PO DAILY [facility] Last Admin: 09/07/21 01:01 Dose: Not Given Documented by: Pantoprazole Sodium (Pantoprazole 40 Mg Tab.Cr) 40 mg PO ACBREAKFAST [facility] Last Admin: 09/09/21 06:01 Dose: 40 mg Documented by: Prednisone (Prednisone 5 Mg Tab) 5 mg PO WITHBREAKFAST [facility] Last Admin: 09/09/21 10:23 Dose: Not Given Documented by: - Exam General: Reports: Alert, Oriented, Cooperative, No Acute Distress HEENT: Reports: Mucous Membr. Moist/[place] Neck: Reports: Supple, Trachea Midline, No Thyromegaly. Denies: Lymphadenopathy Lungs: Reports: Normal Respiratory Effort, Crackles (scattered throughout both lungs) Cardiovascular: Reports: Regular Rate, Regular Rhythm, No Murmurs GI/Abdominal Exam: Normal Bowel Sounds, Soft, Non-Tender, No Organomegaly, No Distention, No Mass Extremities: Normal Inspection, Normal Range of Motion, Non-Tender, No Pedal Edema, Normal Capillary Refill Skin: Reports: Warm, Dry, Intact Neurological: Reports: No New Focal Deficit
--- NOTE | 2021-09-11 11:02 | PCM.EKG ---
#1 Interpretation EKG Date: 09/05/21 Time: 12:45 Rhythm: NSR Rate (Beats/Min): 61 [place]: Normal (She does have some lateral inferior T wave inversion although this is chronic for her.) P-Wave: Present QRS: Normal ST-T: Normal QT: Normal Comparison: No Change
== END 2021-09-10 11:40 | disposition home or self-care (01) | DRG 177 ==
LOC: VM.ED 12:24 → UNDOADMOB 16:41 → VM.MS 16:41 → OBSVTOIN 09-06 12:14 → INTOOBSV 09-07 12:14 → UNDODISIN 09-10 11:40
PROVIDERS: ADMIT Internal Medicine; ATTEND Family Medicine
PROC: XW033F6 Introduction of Bamlanivimab Monoclonal Antibody into Peripheral Vein, Percutaneous Approach, New Technology Group 6 (ICD-10-PCS; principal; 2021-09-06)
DX: U07.1 COVID-19 (principal); I21.4 Non-ST elevation (NSTEMI) myocardial infarction; I50.33 Acute on chronic diastolic (congestive) heart failure; N17.9 Acute kidney failure, unspecified; J96.11 Chronic respiratory failure with hypoxia; D84.9 Immunodeficiency, unspecified; Q25.1 Coarctation of aorta; I95.89 Other hypotension; E86.0 Dehydration; J84.10 Pulmonary fibrosis, unspecified; E11.9 Type 2 diabetes mellitus without complications; E66.09 Other obesity due to excess calories; F41.9 Anxiety disorder, unspecified; K21.9 Gastro-esophageal reflux disease without esophagitis; E86.1 Hypovolemia; E78.5 Hyperlipidemia, unspecified; I10 Essential (primary) hypertension; F32.A Depression, unspecified; G43.909 Migraine, unspecified, not intractable, without status migrainosus; M85.80 Other specified disorders of bone density and structure, unspecified site; G47.30 Sleep apnea, unspecified; G47.00 Insomnia, unspecified; G25.81 Restless legs syndrome; M06.00 Rheumatoid arthritis without rheumatoid factor, unspecified site; Z79.82 Long term (current) use of aspirin; Z79.899 Other long term (current) drug therapy; Z79.84 Long term (current) use of oral hypoglycemic drugs; Z88.6 Allergy status to analgesic agent; Z68.34 Body mass index [BMI] 34.0-34.9, adult; Z88.8 Allergy status to other drugs, medicaments and biological substances; Z88.5 Allergy status to narcotic agent; Z97.4 Presence of external hearing-aid; Z86.16 Personal history of COVID-19; Z90.49 Acquired absence of other specified parts of digestive tract; Z90.710 Acquired absence of both cervix and uterus
CPT/HCPCS: 36415; 71045; 71275; 80048; 80053; 80076; 82728; 82947; 83605; 83690; 83735; 83880; 84145; 84484; 85025; 85379; 85610; 85730; 86140; 94760; 96372; 96375; 97162-GP; 99285-25; A9270-GY; G0378; J1644; J1650; J1815-GY; J1940; J2405; J2920; J3475; J7120; J7512; M0245; Q0245; Q9967

== ENCOUNTER 2023-01-02 11:47 | Emergency (ER) | payer OTHER ==
[2023-01-02] MEDS ORDERED: Sodium Chloride 0.9% 10 ML Syringe FLUSH PRN (11:52)
[2023-01-02] MEDS ORDERED: HYDROmorphone 0.5 MG/0.5 ML Syringe IVPUSH ONE ×3 (11:59→13:29)
[2023-01-02 12:37] LABS: CHLORIDE,CL 97 mmol/L (98-107); SODIUM,NA 138 mmol/L (136-145)
[2023-01-02 12:44] LABS: ANION GAP 14.3 mmol/L (5-15); ESTIMATED GFR 46 mL/min (>=60)
[2023-01-02 20:02] VITALS: BP 138/68; PULSE 88
== END 2023-01-02 15:46 | disposition home or self-care (01) ==
LOC: VM.ED 11:47
DX: M70.72 Other bursitis of hip, left hip (principal); I50.9 Heart failure, unspecified; M06.9 Rheumatoid arthritis, unspecified; Z79.82 Long term (current) use of aspirin; Z79.899 Other long term (current) drug therapy; Z91.011 Allergy to milk products; Z88.8 Allergy status to other drugs, medicaments and biological substances; Z88.6 Allergy status to analgesic agent
CPT/HCPCS: 36415; 72192; 80053; 85025; 86140; 96374; 96376; 99284; 99284-25; J1170

== ENCOUNTER 2023-01-18 09:52 | Emergency (ER) | payer OTHER ==
[2023-01-18] MEDS: HYDROmorphone 1 MG/ML Syringe IM ONE (10:21)
[2023-01-18] MEDS: Orphenadrine 60 MG/2 ML Inj IM ONE (10:22)
[2023-01-18] MEDS: Ketorolac 30 MG/ML SDV IM ONE (11:30)
[2023-01-18 11:40] VITALS: BP 130/50; PULSE 74
[2023-01-18] MEDS: Take Home: Acetaminophen/HYDROcodone 325-10 MG, 5 Tab Pack PO ONE (11:50)
== END 2023-01-18 11:55 | disposition home or self-care (01) ==
LOC: VM.ED 09:52
DX: M25.552 Pain in left hip (principal); I50.9 Heart failure, unspecified; J45.909 Unspecified asthma, uncomplicated; M19.90 Unspecified osteoarthritis, unspecified site; Z86.73 Personal history of transient ischemic attack (TIA), and cerebral infarction without residual deficits; Z87.891 Personal history of nicotine dependence; Z86.16 Personal history of COVID-19; Z79.82 Long term (current) use of aspirin; Z79.899 Other long term (current) drug therapy; Z88.6 Allergy status to analgesic agent; Z88.8 Allergy status to other drugs, medicaments and biological substances; Z91.011 Allergy to milk products
CPT/HCPCS: 94760; 96372; 99283; A9270; J1170; J1885; J2360; 99284

== ENCOUNTER 2023-02-11 11:57 | Emergency (ER) | payer OTHER ==
[2023-02-11] MEDS ORDERED: HYDROmorphone 1 MG/ML Syringe IVPUSH ONE (12:06)
[2023-02-11] MEDS ORDERED: oxyCODONE 5 MG Tab PO ONE (12:43)
[2023-02-11] MEDS ORDERED: Ketamine 200 MG/20 ML MDV IVPUSH ONE (13:06)
[2023-02-11 13:49] LABS: BASOPHILS PERCENT AUTO 0.5 % (0.2-1.2); EOSINOPHILS ABSOLUTE AUTO 0.1 x10^3/uL (0.0-0.5); EOSINOPHILS PERCENT AUTO 1.1 % (0.0-4.0); HEMOGLOBIN 12.3 g/dL (12.0-16.0); IMMATURE GRAN ABSOLUTE AUTO 0.01 x10^3/uL (0.00-0.07); LYMPHOCYTES ABSOLUTE AUTO 0.8 x10^3/uL (1.0-4.8); LYMPHOCYTES PERCENT AUTO 14.1 % (25.0-50.0); MEAN CORPUSCULAR HEMOGLOBIN 31.9 pg (26.0-32.0); MEAN CORPUSCULAR HGB CONC 34.2 g/dL (32.0-36.0); MEAN CORPUSCULAR VOLUME 93.3 fL (78.0-93.0); MONOCYTES ABSOLUTE AUTO 0.8 x10^3/uL (0.0-0.8); MONOCYTES PERCENT AUTO 13.9 % (2.0-11.0); NEUTROPHILS ABSOLUTE AUTO 3.9 x10^3/uL (1.8-7.7); NEUTROPHILS PERCENT AUTO 70.2 % (50.0-80.0); PLATELET COUNT,PLT 257 x10^3/uL (130-400); RED BLOOD CELL COUNT 3.86 x10^6/uL (4.00-5.50); WHITE BLOOD CELL COUNT,WBC 5.6 x10^3/uL (4.0-10.0)
[2023-02-11 14:10] LABS: A/G RATIO 1.21; ALANINE AMINOTRANSFERASE,ALT 24 U/L (14-59); ALBUMIN 3.5 g/dL (3.4-5.0); ALKALINE PHOSPHATASE 72 U/L (46-116); ASPARTATE AMNIOTRANSFERASE,AST 25 U/L (15-37); BILIRUBIN TOTAL 0.9 mg/dL (0.2-1.0); BLOOD UREA NITROGEN,BUN 22 mg/dL (7-18); CALCIUM 9.9 mg/dL (8.5-10.1); CARBON DIOXIDE,CO2 31 mmol/L (21-32); CHLORIDE,CL 103 mmol/L (98-107); CREATININE 1.1 mg/dL (0.55-1.02); GLUCOSE RANDOM 70 mg/dL (70-99); POTASSIUM,K 4.3 mmol/L (3.5-5.1); PROTEIN TOTAL,TP 6.4 g/dL (6.4-8.2); SODIUM,NA 143 mmol/L (136-145)
[2023-02-11 14:13] LABS: ANION GAP 13.3 mmol/L (5-15); C-REACTIVE PROTEIN < 0.2 mg/dL (<=0.9); ESTIMATED GFR 56 mL/min (>=60)
[2023-02-11 15:52] VITALS: BP 120/76; PULSE 74
[2023-02-12] MEDS ORDERED: Iopamidol 612 MG/ML 100 ML Bottle IVPUSH ONE (00:14)
== END 2023-02-11 15:34 | disposition home or self-care (01) ==
LOC: VM.ED 11:57
DX: M70.72 Other bursitis of hip, left hip (principal); I50.9 Heart failure, unspecified; M06.9 Rheumatoid arthritis, unspecified; Z86.16 Personal history of COVID-19; Z79.899 Other long term (current) drug therapy; Z79.82 Long term (current) use of aspirin; Z88.8 Allergy status to other drugs, medicaments and biological substances; Z91.011 Allergy to milk products; Z88.5 Allergy status to narcotic agent
CPT/HCPCS: 36415; 72192; 80053; 83605; 84145; 85025; 86140; 96374; 96375; 99284-25; A9270-GY; J1170; J3490

== ENCOUNTER 2023-07-30 18:07 | Emergency (ER) | payer OTHER ==
[2023-07-30] MEDS ORDERED: Sodium Chloride 0.9% 1,000 ML IV ONE ×2 (18:30→19:25)
[2023-07-30] MEDS ORDERED: Sodium Chloride 0.9% 10 ML Syringe FLUSH PRN (18:35)
[2023-07-30] MEDS ORDERED: cefTRIAXone 2 GM Vial IVPUSH ONE (18:47)
[2023-07-30] MEDS ORDERED: 50% Dextrose in Water 50 ML Syringe IV PRN (18:50)
[2023-07-30] MEDS ORDERED: Azithromycin 500 MG in Sodium Chloride 0.9% 250 ML IV ONE (19:02)
[2023-07-30 19:04] LABS: BASOPHILS ABSOLUTE AUTO 0.1 x10^3/uL (0.0-0.2); BASOPHILS PERCENT AUTO 0.7 % (0.2-1.2); EOSINOPHILS ABSOLUTE AUTO 0.1 x10^3/uL (0.0-0.5); EOSINOPHILS PERCENT AUTO 1.6 % (0.0-4.0); HEMATOCRIT 29.9 % (33.0-47.0); HEMOGLOBIN 9.4 g/dL (12.0-16.0); IMMATURE GRAN ABSOLUTE AUTO 0.15 x10^3/uL (0.00-0.07); LYMPHOCYTES ABSOLUTE AUTO 1.1 x10^3/uL (1.0-4.8); LYMPHOCYTES PERCENT AUTO 16.2 % (25.0-50.0); MEAN CORPUSCULAR HEMOGLOBIN 31.3 pg (26.0-32.0); MEAN CORPUSCULAR HGB CONC 31.4 g/dL (32.0-36.0); MEAN CORPUSCULAR VOLUME 99.7 fL (78.0-93.0); MONOCYTES ABSOLUTE AUTO 0.7 x10^3/uL (0.0-0.8); MONOCYTES PERCENT AUTO 10.6 % (2.0-11.0); NEUTROPHILS ABSOLUTE AUTO 4.6 x10^3/uL (1.8-7.7); NEUTROPHILS PERCENT AUTO 68.7 % (50.0-80.0); PLATELET COUNT,PLT 272 x10^3/uL (130-400); WHITE BLOOD CELL COUNT,WBC 6.7 x10^3/uL (4.0-10.0)
[2023-07-30] MEDS ORDERED: Norepinephrine Bit/D5W Premix 250 ML ONE (19:12)
[2023-07-30] MEDS ORDERED: Norepinephrine Bit/D5W Premix 250 ML IV SCH (19:15)
[2023-07-30 19:39] LABS: INR 0.9 (0.9-1.1); PROTHROMBIN TIME 9.8 SEC (9.5-12.2); PTT,PARTIAL THROMBOPLSTIN TIME 27.5 SEC (23.6-33.6)
[2023-07-30 19:42] LABS: LACTIC ACID 1.3 mmol/L (0.4-2.0)
[2023-07-30 19:48] LABS: A/G RATIO 0.76; ALANINE AMINOTRANSFERASE,ALT 19 U/L (14-59); ALBUMIN 2.9 g/dL (3.4-5.0); ALKALINE PHOSPHATASE 76 U/L (46-116); ASPARTATE AMNIOTRANSFERASE,AST 19 U/L (15-37); BILIRUBIN TOTAL 0.4 mg/dL (0.2-1.0); BLOOD UREA NITROGEN,BUN 30 mg/dL (7-18); C-REACTIVE PROTEIN 15.99 mg/dL (<=0.50); CALCIUM 8.8 mg/dL (8.5-10.1); CARBON DIOXIDE,CO2 29 mmol/L (21-32); CHLORIDE,CL 99 mmol/L (98-107); CREATININE 1.8 mg/dL (0.55-1.02); GLUCOSE RANDOM 55 mg/dL (70-99); MAGNESIUM 1.8 mg/dL (1.8-2.4); POTASSIUM,K 4.6 mmol/L (3.5-5.1); PROTEIN TOTAL,TP 6.7 g/dL (6.4-8.2); SODIUM,NA 137 mmol/L (136-145); TSH ULTRASENSITIVE 1.864 uIU/mL (0.358-3.74)
[2023-07-30 19:49] LABS: ANION GAP 13.6 mmol/L (5-15); ESTIMATED GFR 31 mL/min (>=60); ETHANOL BLOOD MEDICAL < 3 mg/dL (0-3)
[2023-07-30] MEDS ORDERED: Hydrocortisone Sodium Succinate 100 MG/2 ML SDV IVPUSH ONE (19:53)
[2023-07-30 20:03] LABS: APPEARANCE,URINE CLEAR (CLEAR); BILIRUBIN,URINE NEGATIVE (NEGATIVE); COLOR,URINE YELLOW (YELLOW); GLUCOSE,URINE NEGATIVE (NEGATIVE); KETONES,URINE TRACE mg/dL (NEGATIVE); LEUKOCYTE ESTERASE,URINE NEGATIVE (NEGATIVE); NITRITE,URINE NEGATIVE (NEGATIVE); OCCULT BLOOD,URINE NEGATIVE (NEGATIVE); PH,URINE 6.5 (5.0-8.0); PROTEIN,URINE 30 mg/dL (NEGATIVE); UROBILINOGEN,URINE 0.2 EU/dL (0.2)
[2023-07-30 20:14] LABS: CORONAVIRUS COVID-19 NAA POSITIVE (NEGATIVE); INFLUENZA A NAA NEGATIVE (NEGATIVE); INFLUENZA B NAA NEGATIVE (NEGATIVE); RESPIRATORY SYNCYTIAL VIR NAA NEGATIVE (NEGATIVE)
[2023-07-30] MEDS ORDERED: fentaNYL 50 MCG/ML SDV IVPUSH ONE (20:15)
[2023-07-30 20:19] LABS: BACTERIA,URINE NOT SEEN /HPF (NOT SEEN); HYALINE CASTS,URINE FEW; MUCUS,URINE RARE /LPF (NOT SEEN); RBC,URINE 0-5 /HPF (NOT SEEN); SQUAMOUS EPITHELIAL CELLS,UR MODERATE /HPF (NOT SEEN); WBC,URINE 0-5 /HPF (NOT SEEN)
[2023-07-30 20:41] VITALS: PULSE 78
[2023-07-30 23:00] VITALS: BP 67/35
[2023-08-02] MEDS ORDERED: fentaNYL 50 MCG/HR Transdermal Patch TRDERM SCH (08:00)
== END 2023-07-30 21:30 | disposition short-term general hospital (02) ==
LOC: VM.ED 18:07
DX: U07.1 COVID-19 (principal); E11.649 Type 2 diabetes mellitus with hypoglycemia without coma; I95.9 Hypotension, unspecified; E86.1 Hypovolemia; I11.0 Hypertensive heart disease with heart failure; I50.9 Heart failure, unspecified; Z86.73 Personal history of transient ischemic attack (TIA), and cerebral infarction without residual deficits; E66.9 Obesity, unspecified; Z90.49 Acquired absence of other specified parts of digestive tract; Z90.710 Acquired absence of both cervix and uterus; Z79.82 Long term (current) use of aspirin; Z79.899 Other long term (current) drug therapy; Z88.6 Allergy status to analgesic agent; Z88.5 Allergy status to narcotic agent; Z88.1 Allergy status to other antibiotic agents; Z88.8 Allergy status to other drugs, medicaments and biological substances; Z91.011 Allergy to milk products
CPT/HCPCS: 0241U; 36415; 71045; 80053; 80307; 81001; 82947; 83605; 83735; 84145; 84443; 84484; 85025; 85610; 85730; 86140; 87040; 93005; 96361; 96365; 96375; 99285-25; J0456; J0696; J1720; J3010; J3490; J7030; J7050

== ENCOUNTER 2023-09-02 11:34 | Emergency (ER) | payer OTHER ==
[2023-09-02 11:58] VITALS: BP 105/63; PULSE 87
[2023-09-02 11:58] LABS: BASOPHILS PERCENT AUTO 0.4 % (0.2-1.2); EOSINOPHILS ABSOLUTE AUTO 0.2 x10^3/uL (0.0-0.5); EOSINOPHILS PERCENT AUTO 1.4 % (0.0-4.0); HEMATOCRIT 37.4 % (33.0-47.0); HEMOGLOBIN 11.7 g/dL (12.0-16.0); IMMATURE GRAN ABSOLUTE AUTO 0.08 x10^3/uL (0.00-0.07); LYMPHOCYTES ABSOLUTE AUTO 1.7 x10^3/uL (1.0-4.8); LYMPHOCYTES PERCENT AUTO 15.2 % (25.0-50.0); MEAN CORPUSCULAR HEMOGLOBIN 30.9 pg (26.0-32.0); MEAN CORPUSCULAR HGB CONC 31.3 g/dL (32.0-36.0); MEAN CORPUSCULAR VOLUME 98.7 fL (78.0-93.0); MONOCYTES ABSOLUTE AUTO 1.1 x10^3/uL (0.0-0.8); MONOCYTES PERCENT AUTO 9.9 % (2.0-11.0); NEUTROPHILS PERCENT AUTO 72.4 % (50.0-80.0); PLATELET COUNT,PLT 562 x10^3/uL (130-400); RED BLOOD CELL COUNT 3.79 x10^6/uL (4.00-5.50); WHITE BLOOD CELL COUNT,WBC 11.1 x10^3/uL (4.0-10.0)
[2023-09-02 12:18] LABS: A/G RATIO 0.73; ALANINE AMINOTRANSFERASE,ALT 23 U/L (14-59); ALKALINE PHOSPHATASE 99 U/L (46-116); ASPARTATE AMNIOTRANSFERASE,AST 26 U/L (15-37); BILIRUBIN TOTAL 0.4 mg/dL (0.2-1.0); BLOOD UREA NITROGEN,BUN 19 mg/dL (7-18); CALCIUM 9.3 mg/dL (8.5-10.1); CARBON DIOXIDE,CO2 27 mmol/L (21-32); CHLORIDE,CL 94 mmol/L (98-107); CREATININE 1.5 mg/dL (0.55-1.02); GLUCOSE RANDOM 312 mg/dL (70-99); POTASSIUM,K 4.3 mmol/L (3.5-5.1); PROTEIN TOTAL,TP 7.1 g/dL (6.4-8.2); SODIUM,NA 132 mmol/L (136-145)
[2023-09-02 12:19] LABS: ANION GAP 15.3 mmol/L (5-15); ESTIMATED GFR 38 mL/min (>=60)
[2023-09-02 12:59] LABS: APPEARANCE,URINE CLEAR (CLEAR); BILIRUBIN,URINE NEGATIVE (NEGATIVE); COLOR,URINE YELLOW (YELLOW); GLUCOSE,URINE NEGATIVE (NEGATIVE); KETONES,URINE NEGATIVE (NEGATIVE); LEUKOCYTE ESTERASE,URINE NEGATIVE (NEGATIVE); NITRITE,URINE NEGATIVE (NEGATIVE); OCCULT BLOOD,URINE NEGATIVE (NEGATIVE); PH,URINE 5.5 (5.0-8.0); PROTEIN,URINE NEGATIVE (NEGATIVE); UROBILINOGEN,URINE 0.2 EU/dL (0.2)
== END 2023-09-02 13:46 | disposition home or self-care (01) ==
LOC: VM.ED 11:34
DX: R10.84 Generalized abdominal pain (principal); I11.0 Hypertensive heart disease with heart failure; I50.9 Heart failure, unspecified; E11.9 Type 2 diabetes mellitus without complications; E66.9 Obesity, unspecified; Z90.49 Acquired absence of other specified parts of digestive tract; Z90.710 Acquired absence of both cervix and uterus; Z86.16 Personal history of COVID-19; Z79.82 Long term (current) use of aspirin; Z79.899 Other long term (current) drug therapy; Z88.8 Allergy status to other drugs, medicaments and biological substances; Z91.011 Allergy to milk products
CPT/HCPCS: 36415; 80053; 81003; 85025; 99284

== ENCOUNTER 2023-10-10 21:32 | Inpatient (IN) | payer OTHER ==
[2023-10-10] MEDS: Ketorolac 30 MG/ML SDV IM ONE (22:25)
[2023-10-10] MEDS ORDERED: Naloxone 0.4 MG/ML SDV IVPUSH PRN (23:51)
[2023-10-10] MEDS ORDERED: Ondansetron 4 MG Tab.DIS PO PRN (23:51)
[2023-10-11] MEDS ORDERED: REMOVE FENTANYL TRDERM SCH (00:15)
[2023-10-11] MEDS: fentaNYL 25 MCG/HR Transdermal Patch TRDERM STA (00:46)
[2023-10-11] MEDS: HYDROmorphone 2 MG Tab PO PRN (02:06)
[2023-10-11 03:50] LABS: APPEARANCE,URINE CLEAR (CLEAR); BILIRUBIN,URINE NEGATIVE (NEGATIVE); COLOR,URINE YELLOW (YELLOW); GLUCOSE,URINE 100 mg/dL (NEGATIVE); KETONES,URINE NEGATIVE (NEGATIVE); LEUKOCYTE ESTERASE,URINE NEGATIVE (NEGATIVE); NITRITE,URINE NEGATIVE (NEGATIVE); OCCULT BLOOD,URINE NEGATIVE (NEGATIVE); PROTEIN,URINE NEGATIVE (NEGATIVE); UROBILINOGEN,URINE 0.2 EU/dL (0.2)
[2023-10-11 03:51] LABS: BACTERIA,URINE RARE /HPF (NOT SEEN); MUCUS,URINE NOT SEEN /LPF (NOT SEEN); RBC,URINE 0-5 /HPF (NOT SEEN); SQUAMOUS EPITHELIAL CELLS,UR OCCASIONAL /HPF (NOT SEEN); WBC,URINE NOT SEEN /HPF (NOT SEEN)
[2023-10-11] MEDS: REMOVE FENTANYL TRDERM ONE (05:00)
[2023-10-11 07:59] LABS: BASOPHILS PERCENT AUTO 0.4 % (0.2-1.2); EOSINOPHILS ABSOLUTE AUTO 0.1 x10^3/uL (0.0-0.5); EOSINOPHILS PERCENT AUTO 1.1 % (0.0-4.0); HEMATOCRIT 33.6 % (33.0-47.0); HEMOGLOBIN 10.6 g/dL (12.0-16.0); IMMATURE GRAN ABSOLUTE AUTO 0.02 x10^3/uL (0.00-0.07); LYMPHOCYTES ABSOLUTE AUTO 0.9 x10^3/uL (1.0-4.8); LYMPHOCYTES PERCENT AUTO 9.3 % (25.0-50.0); MEAN CORPUSCULAR HEMOGLOBIN 30.3 pg (26.0-32.0); MEAN CORPUSCULAR HGB CONC 31.5 g/dL (32.0-36.0); MONOCYTES ABSOLUTE AUTO 0.8 x10^3/uL (0.0-0.8); MONOCYTES PERCENT AUTO 8.4 % (2.0-11.0); NEUTROPHILS ABSOLUTE AUTO 7.8 x10^3/uL (1.8-7.7); NEUTROPHILS PERCENT AUTO 80.6 % (50.0-80.0); PLATELET COUNT,PLT 359 x10^3/uL (130-400); WHITE BLOOD CELL COUNT,WBC 9.7 x10^3/uL (4.0-10.0)
[2023-10-11] MEDS ORDERED: Albuterol HFA 18 Gm Inhaler INH PRN (08:24)
[2023-10-11 08:26] LABS: A/G RATIO 1.03; ALANINE AMINOTRANSFERASE,ALT 18 U/L (14-59); ALBUMIN 3.3 g/dL (3.4-5.0); ALKALINE PHOSPHATASE 78 U/L (46-116); ASPARTATE AMNIOTRANSFERASE,AST 17 U/L (15-37); BILIRUBIN TOTAL 0.4 mg/dL (0.2-1.0); BLOOD UREA NITROGEN,BUN 22 mg/dL (7-18); CALCIUM 9.5 mg/dL (8.5-10.1); CARBON DIOXIDE,CO2 31 mmol/L (21-32); CHLORIDE,CL 101 mmol/L (98-107); GLUCOSE RANDOM 155 mg/dL (70-99); POTASSIUM,K 4.9 mmol/L (3.5-5.1); PROTEIN TOTAL,TP 6.5 g/dL (6.4-8.2); SODIUM,NA 140 mmol/L (136-145)
[2023-10-11 08:27] LABS: ANION GAP 12.9 mmol/L (5-15); C-REACTIVE PROTEIN < 0.50 mg/dL (<=0.50); ESTIMATED GFR 63 mL/min (>=60)
[2023-10-11] MEDS ORDERED: Non-Formulary Medication 1 Each (Esomeprazole Magnesium [Nexium] 40 MG Capsule.Dr) PO SCH (09:00)
[2023-10-11] MEDS ORDERED: Enoxaparin 40 MG/0.4 ML Syringe SUBCUT SCH (09:00)
[2023-10-11] MEDS: glipiZIDE 10 MG Tab.ER PO SCH (12:12)
[2023-10-11] MEDS: DULoxetine 60 MG Cap PO SCH (12:13)
[2023-10-11] MEDS: Aspirin 81 MG Tab.EC PO SCH (12:14)
[2023-10-11] MEDS: Spironolactone 25 MG Tab PO SCH (12:14)
[2023-10-11] MEDS: tiZANidine 4 MG Tab PO SCH (12:15)
[2023-10-11] MEDS: Losartan 50 MG Tab PO SCH (12:17)
[2023-10-11] MEDS: Pregabalin 25 MG Cap PO SCH (12:18)
[2023-10-11] MEDS: Lidocaine 4% 1 each Patch TOP SCH (12:18)
[2023-10-11] MEDS: Calcium Carbonate/Vitamin D3 1250 MG-5 MCG Tab PO SCH (12:38)
[2023-10-11] MEDS: Pantoprazole 40 MG Tab.CR PO SCH (12:38)
[2023-10-11] MEDS: Furosemide 40 MG Tab PO SCH (12:39)
[2023-10-11] MEDS: atorvaSTATin 40 MG Tab PO SCH (12:39)
[2023-10-11] MEDS: Leflunomide 20 MG Tab PO SCH (12:39)
[2023-10-11] MEDS: Metoprolol Succinate 25 MG Tab.ER PO SCH (12:41)
[2023-10-11] MEDS: Meloxicam 7.5 MG Tab PO SCH (12:42)
[2023-10-11] MEDS: predniSONE 5 MG Tab PO SCH (12:43)
[2023-10-11] MEDS: HYDROmorphone 0.5 MG/0.5 ML Syringe IVPUSH PRN (14:22)
[2023-10-11] MEDS: Enoxaparin 40 MG/0.4 ML Syringe SUBCUT SCH (20:56)
[2023-10-11] MEDS ORDERED: Latanoprost 0.005% Ophth Soln 2.5 ML Bottle EYEBOTH SCH (21:00)
[2023-10-11] MEDS ORDERED: Take Home: LORazepam 0.5 MG Tab, 2 Tab Pack PO SCH (21:00)
[2023-10-11] MEDS: Topiramate 50 MG Tab PO SCH (21:01)
[2023-10-11] MEDS: Montelukast 10 MG Tab PO SCH (21:02)
[2023-10-11] MEDS: fentaNYL 25 MCG/HR Transdermal Patch TRDERM SCH (21:03)
[2023-10-12 07:18] LABS: BASOPHILS ABSOLUTE AUTO 0.1 x10^3/uL (0.0-0.2); BASOPHILS PERCENT AUTO 0.7 % (0.2-1.2); EOSINOPHILS ABSOLUTE AUTO 0.1 x10^3/uL (0.0-0.5); EOSINOPHILS PERCENT AUTO 1.9 % (0.0-4.0); HEMATOCRIT 32.9 % (33.0-47.0); HEMOGLOBIN 10.5 g/dL (12.0-16.0); IMMATURE GRAN ABSOLUTE AUTO 0.02 x10^3/uL (0.00-0.07); LYMPHOCYTES ABSOLUTE AUTO 0.8 x10^3/uL (1.0-4.8); MEAN CORPUSCULAR HEMOGLOBIN 30.5 pg (26.0-32.0); MEAN CORPUSCULAR HGB CONC 31.9 g/dL (32.0-36.0); MEAN CORPUSCULAR VOLUME 95.6 fL (78.0-93.0); MONOCYTES ABSOLUTE AUTO 0.7 x10^3/uL (0.0-0.8); MONOCYTES PERCENT AUTO 9.7 % (2.0-11.0); NEUTROPHILS ABSOLUTE AUTO 5.6 x10^3/uL (1.8-7.7); NEUTROPHILS PERCENT AUTO 76.4 % (50.0-80.0); PLATELET COUNT,PLT 348 x10^3/uL (130-400); RED BLOOD CELL COUNT 3.44 x10^6/uL (4.00-5.50); WHITE BLOOD CELL COUNT,WBC 7.3 x10^3/uL (4.0-10.0)
[2023-10-12 07:26] LABS: CALCIUM 9.2 mg/dL (8.5-10.1); EST CRCL DRUG DOSING (CG) 40.29 mL/min; POTASSIUM,K 4.2 mmol/L (3.5-5.1)
[2023-10-12 07:29] LABS: ANION GAP 12.2 mmol/L (5-15)
[2023-10-13 10:58] LABS: CALCIUM 9.7 mg/dL (8.5-10.1); CREATININE 1.2 mg/dL (0.55-1.02); EST CRCL DRUG DOSING (CG) 33.57 mL/min; POTASSIUM,K 3.8 mmol/L (3.5-5.1)
[2023-10-13 10:59] LABS: ANION GAP 12.8 mmol/L (5-15)
[2023-10-13] MEDS: tiZANidine 4 MG Tab PO SCH (13:05)
[2023-10-13] MEDS: Sodium Chloride 0.9% 10 ML Syringe FLUSH PRN (20:50)
[2023-10-14] MEDS: Polyethylene Glycol 3350 Powder 17 GM Packet PO SCH (09:08)
[2023-10-14] MEDS: Acetaminophen 325 MG Tab PO PRN (09:08)
[2023-10-14 11:15] VITALS: BP 152/68; PULSE 73
[2023-10-14] MEDS ORDERED: predniSONE 5 MG Tab PO SCH (21:00)
[2023-10-14] MEDS ORDERED: Spironolactone 25 MG Tab PO SCH (21:00)
[2023-10-14] MEDS ORDERED: Losartan 50 MG Tab PO SCH (21:00)
[2023-10-14] MEDS ORDERED: atorvaSTATin 40 MG Tab PO SCH (21:00)
[2023-10-14] MEDS ORDERED: DULoxetine 60 MG Cap PO SCH (21:00)
[2023-10-14] MEDS ORDERED: Metoprolol Succinate 25 MG Tab.ER PO SCH (21:00)
== END 2023-10-14 09:57 | disposition swing bed (61) | DRG 552 ==
LOC: VM.ED 21:32 → VM.MS 23:37 → OBSVTOIN 10-11 08:27
PROVIDERS: ADMIT Physician Assistant Medical; ATTEND Family Medicine
DX: M54.50 Low back pain, unspecified (principal); J96.11 Chronic respiratory failure with hypoxia; I50.32 Chronic diastolic (congestive) heart failure; S70.02XA Contusion of left hip, initial encounter; M79.10 Myalgia, unspecified site; M25.551 Pain in right hip; G89.29 Other chronic pain; H91.90 Unspecified hearing loss, unspecified ear; E78.00 Pure hypercholesterolemia, unspecified; I11.0 Hypertensive heart disease with heart failure; I73.9 Peripheral vascular disease, unspecified; G47.30 Sleep apnea, unspecified; M19.90 Unspecified osteoarthritis, unspecified site; G43.909 Migraine, unspecified, not intractable, without status migrainosus; G25.81 Restless legs syndrome; F41.9 Anxiety disorder, unspecified; F32.A Depression, unspecified; E11.9 Type 2 diabetes mellitus without complications; E66.9 Obesity, unspecified; M06.00 Rheumatoid arthritis without rheumatoid factor, unspecified site; Z88.8 Allergy status to other drugs, medicaments and biological substances; Z79.82 Long term (current) use of aspirin; Z79.51 Long term (current) use of inhaled steroids; Z79.899 Other long term (current) drug therapy; Z79.84 Long term (current) use of oral hypoglycemic drugs; Z86.73 Personal history of transient ischemic attack (TIA), and cerebral infarction without residual deficits; Z68.29 Body mass index [BMI] 29.0-29.9, adult; Z86.16 Personal history of COVID-19; Z98.890 Other specified postprocedural states; Z90.49 Acquired absence of other specified parts of digestive tract; Z90.710 Acquired absence of both cervix and uterus; Z98.1 Arthrodesis status
CPT/HCPCS: 36415; 72100; 80048; 80053; 81001; 82550; 82947; 85025; 86038; 86140; 94760; 96372; 97161-GP; 99284; A9270-GY; G0283-GP; J1170; J1650; J1885; J3490; J7512

== ENCOUNTER 2023-10-14 09:50 | Inpatient (IN) | payer OTHER, MEDICARE ==
[2023-10-14] MEDS ORDERED: Albuterol HFA 18 Gm Inhaler INH PRN (11:41)
[2023-10-14] MEDS ORDERED: HYDROmorphone 0.5 MG/0.5 ML Syringe IVPUSH PRN (11:41)
[2023-10-14] MEDS ORDERED: Sodium Chloride 0.9% 10 ML Syringe FLUSH PRN (11:41)
[2023-10-14] MEDS: HYDROmorphone 2 MG Tab PO PRN (12:24)
[2023-10-14] MEDS: Baclofen 10 MG Tab PO SCH (12:24)
[2023-10-14] MEDS: Acetaminophen 325 MG Tab PO PRN (15:59)
[2023-10-14] MEDS: glipiZIDE 10 MG Tab.ER PO SCH (18:06)
[2023-10-14] MEDS ORDERED: fentaNYL 25 MCG/HR Transdermal Patch TRDERM SCH (20:00)
[2023-10-14] MEDS: Pregabalin 25 MG Cap PO SCH (20:19)
[2023-10-14] MEDS: Topiramate 50 MG Tab PO SCH (20:19)
[2023-10-14] MEDS: Spironolactone 25 MG Tab PO SCH (20:20)
[2023-10-14] MEDS: atorvaSTATin 40 MG Tab PO SCH (20:20)
[2023-10-14] MEDS: Montelukast 10 MG Tab PO SCH (20:21)
[2023-10-14] MEDS: Metoprolol Succinate 25 MG Tab.ER PO SCH (20:21)
[2023-10-14] MEDS: Losartan 50 MG Tab PO SCH (20:22)
[2023-10-14] MEDS: predniSONE 5 MG Tab PO SCH (20:23)
[2023-10-14] MEDS: DULoxetine 60 MG Cap PO SCH (20:23)
[2023-10-14] MEDS: Enoxaparin 40 MG/0.4 ML Syringe SUBCUT SCH (20:24)
[2023-10-14] MEDS: fentaNYL 50 MCG/HR Transdermal Patch TRDERM SCH (20:36)
[2023-10-15] MEDS: Pantoprazole 40 MG Tab.CR PO SCH (06:07)
[2023-10-15 06:52] LABS: BASOPHILS PERCENT AUTO 0.4 % (0.2-1.2); EOSINOPHILS ABSOLUTE AUTO 0.1 x10^3/uL (0.0-0.5); HEMATOCRIT 33.5 % (33.0-47.0); HEMOGLOBIN 10.7 g/dL (12.0-16.0); IMMATURE GRAN ABSOLUTE AUTO 0.02 x10^3/uL (0.00-0.07); LYMPHOCYTES ABSOLUTE AUTO 0.8 x10^3/uL (1.0-4.8); LYMPHOCYTES PERCENT AUTO 12.5 % (25.0-50.0); MEAN CORPUSCULAR HEMOGLOBIN 30.2 pg (26.0-32.0); MEAN CORPUSCULAR HGB CONC 31.9 g/dL (32.0-36.0); MEAN CORPUSCULAR VOLUME 94.6 fL (78.0-93.0); MONOCYTES ABSOLUTE AUTO 0.7 x10^3/uL (0.0-0.8); MONOCYTES PERCENT AUTO 10.1 % (2.0-11.0); NEUTROPHILS ABSOLUTE AUTO 5.1 x10^3/uL (1.8-7.7); NEUTROPHILS PERCENT AUTO 75.7 % (50.0-80.0); PLATELET COUNT,PLT 327 x10^3/uL (130-400); RED BLOOD CELL COUNT 3.54 x10^6/uL (4.00-5.50); WHITE BLOOD CELL COUNT,WBC 6.7 x10^3/uL (4.0-10.0)
[2023-10-15 07:05] LABS: CALCIUM 9.9 mg/dL (8.5-10.1); CREATININE 1.8 mg/dL (0.55-1.02); EST CRCL DRUG DOSING (CG) 22.38 mL/min; POTASSIUM,K 5.1 mmol/L (3.5-5.1)
[2023-10-15 07:10] LABS: ANION GAP 12.1 mmol/L (5-15)
[2023-10-15] MEDS: Furosemide 40 MG Tab PO SCH (10:09)
[2023-10-15] MEDS: Leflunomide 20 MG Tab PO SCH (10:09)
[2023-10-15] MEDS: Calcium Carbonate/Vitamin D3 1250 MG-5 MCG Tab PO SCH (10:10)
[2023-10-15] MEDS: Meloxicam 7.5 MG Tab PO SCH (10:10)
[2023-10-15] MEDS: Aspirin 81 MG Tab.EC PO SCH (10:11)
[2023-10-15] MEDS: Polyethylene Glycol 3350 Powder 17 GM Packet PO SCH (10:11)
[2023-10-15] MEDS: Lidocaine 4% 1 each Patch TOP SCH (10:11)
[2023-10-15] MEDS: Ondansetron 4 MG Tab.DIS PO PRN (12:03)
[2023-10-15 17:48] LABS: BASOPHILS ABSOLUTE AUTO 0.1 x10^3/uL (0.0-0.2); BASOPHILS PERCENT AUTO 0.4 % (0.2-1.2); EOSINOPHILS ABSOLUTE AUTO 0.2 x10^3/uL (0.0-0.5); EOSINOPHILS PERCENT AUTO 1.5 % (0.0-4.0); HEMATOCRIT 33.8 % (33.0-47.0); HEMOGLOBIN 10.8 g/dL (12.0-16.0); IMMATURE GRAN ABSOLUTE AUTO 0.01 x10^3/uL (0.00-0.07); LYMPHOCYTES ABSOLUTE AUTO 1.4 x10^3/uL (1.0-4.8); LYMPHOCYTES PERCENT AUTO 9.8 % (25.0-50.0); MEAN CORPUSCULAR HEMOGLOBIN 30.3 pg (26.0-32.0); MEAN CORPUSCULAR VOLUME 94.7 fL (78.0-93.0); MONOCYTES ABSOLUTE AUTO 1.5 x10^3/uL (0.0-0.8); NEUTROPHILS ABSOLUTE AUTO 10.6 x10^3/uL (1.8-7.7); PLATELET COUNT,PLT 328 x10^3/uL (130-400); RED BLOOD CELL COUNT 3.57 x10^6/uL (4.00-5.50); WHITE BLOOD CELL COUNT,WBC 13.7 x10^3/uL (4.0-10.0)
[2023-10-15 17:54] LABS: MONOCYTES PERCENT AUTO 11.2 % (2.0-11.0)
[2023-10-15 18:03] LABS: A/G RATIO 1.03; ALBUMIN 3.4 g/dL (3.4-5.0); BILIRUBIN TOTAL 0.6 mg/dL (0.2-1.0); CALCIUM 9.6 mg/dL (8.5-10.1); CREATININE 1.8 mg/dL (0.55-1.02); EST CRCL DRUG DOSING (CG) 22.38 mL/min; POTASSIUM,K 4.4 mmol/L (3.5-5.1); PROTEIN TOTAL,TP 6.7 g/dL (6.4-8.2)
[2023-10-15 18:04] LABS: ANION GAP 16.4 mmol/L (5-15)
[2023-10-15] MEDS: fentaNYL 25 MCG/HR Transdermal Patch TRDERM SCH ×2 (18:21→21:45)
[2023-10-16] MEDS: Naloxone 0.4 MG/ML SDV IVPUSH PRN (08:50)
[2023-10-16 09:29] LABS: BASOPHILS PERCENT AUTO 0.3 % (0.2-1.2); EOSINOPHILS PERCENT AUTO 0.4 % (0.0-4.0); HEMATOCRIT 36.3 % (33.0-47.0); HEMOGLOBIN 11.5 g/dL (12.0-16.0); IMMATURE GRAN ABSOLUTE AUTO 0.02 x10^3/uL (0.00-0.07); LYMPHOCYTES ABSOLUTE AUTO 1.3 x10^3/uL (1.0-4.8); LYMPHOCYTES PERCENT AUTO 11.5 % (25.0-50.0); MEAN CORPUSCULAR HEMOGLOBIN 30.2 pg (26.0-32.0); MEAN CORPUSCULAR HGB CONC 31.7 g/dL (32.0-36.0); MEAN CORPUSCULAR VOLUME 95.3 fL (78.0-93.0); MONOCYTES ABSOLUTE AUTO 0.9 x10^3/uL (0.0-0.8); MONOCYTES PERCENT AUTO 8.3 % (2.0-11.0); NEUTROPHILS ABSOLUTE AUTO 8.8 x10^3/uL (1.8-7.7); NEUTROPHILS PERCENT AUTO 79.3 % (50.0-80.0); PLATELET COUNT,PLT 361 x10^3/uL (130-400); RED BLOOD CELL COUNT 3.81 x10^6/uL (4.00-5.50); WHITE BLOOD CELL COUNT,WBC 11.1 x10^3/uL (4.0-10.0)
[2023-10-16] MEDS ORDERED: Flumazenil 0.1 MG/ML 5 ML MDV IVPUSH PRN (09:34)
[2023-10-16] MEDS: LORazepam 2 MG/ML SDV IVPUSH ONE (09:45)
[2023-10-16] MEDS: Sodium Chloride 0.9% 1,000 ML IV ONE (09:51)
[2023-10-16] MEDS: Sodium Chloride 0.9% 500 ML IV ONE (10:02)
[2023-10-16 10:22] LABS: BASE EXCESS ARTERIAL,POC 7 mmol/L ((-2)-3); O2 SATURATION ARTERIAL,POC 98.2 % (94-98); PCO2 ARTERIAL,POC 47 mmHg (35-48); PH ARTERIAL,POC 7.43 pH (7.35-7.45); PO2 ARTERIAL,POC 107 mmHg (83-108); TCO2 ARTERIAL,POC 30.1 mmol/L (22-29)
[2023-10-16 10:26] LABS: A/G RATIO 0.97; ALBUMIN 3.6 g/dL (3.4-5.0); ANION GAP 15.5 mmol/L (5-15); BILIRUBIN TOTAL 0.7 mg/dL (0.2-1.0); CALCIUM 9.9 mg/dL (8.5-10.1); EST CRCL DRUG DOSING (CG) 20.14 mL/min; MAGNESIUM 2.7 mg/dL (1.8-2.4); POTASSIUM,K 4.5 mmol/L (3.5-5.1); PROTEIN TOTAL,TP 7.3 g/dL (6.4-8.2)
[2023-10-17] MEDS: Simethicone 80 MG Tab.Chew PO PRN (15:51)
[2023-10-17] MEDS: Sodium Chloride 0.9% 10 ML Syringe FLUSH PRN (16:11)
[2023-10-18 07:48] LABS: HEMOGLOBIN 10.2 g/dL (12.0-16.0); MEAN CORPUSCULAR HEMOGLOBIN 30.3 pg (26.0-32.0); MEAN CORPUSCULAR HGB CONC 31.9 g/dL (32.0-36.0); RED BLOOD CELL COUNT 3.37 x10^6/uL (4.00-5.50); WHITE BLOOD CELL COUNT,WBC 5.8 x10^3/uL (4.0-10.0)
[2023-10-18] MEDS: DULAGLUTIDE 1.5 MG/0.5 ML SQ SCH ×3 (10:28→10:34)
[2023-10-18] MEDS: DULAGLUTIDE 0.75 MG SQ SCH (10:28)
[2023-10-18] MEDS ORDERED: Naloxone 0.4 MG/ML SDV IVPUSH PRN (13:37)
[2023-10-18] MEDS ORDERED: HYDROMORPHONE 4 MG PO PRN (13:37)
[2023-10-18] MEDS ORDERED: [UNRECOGNIZED DRUG - OTHER] IVPUSH PRN (13:37)
[2023-10-18] MEDS ORDERED: Non-Formulary Medication 1 Each (Ondansetron Hcl [Zofran] 4 MG Tablet) PO PRN (13:37)
[2023-10-18] MEDS ORDERED: Albuterol HFA 18 Gm Inhaler INH PRN (13:37)
[2023-10-18] MEDS ORDERED: HYDROMORPHONE HCL IVPUSH PRN (13:37)
[2023-10-18] MEDS ORDERED: Sodium Chloride 0.9% 10 ML Syringe IVPUSH PRN (13:37)
[2023-10-18] MEDS ORDERED: Non-Formulary Medication 1 Each (Dulaglutide [Trulicity] 1.5 MG/0.5 ML Pen) SUBCUT SCH (13:45)
[2023-10-18] MEDS: Alendronate 70 MG Tab PO SCH (17:36)
[2023-10-18] MEDS ORDERED: Enoxaparin 40 MG/0.4 ML Syringe SUBCUT SCH (20:00)
[2023-10-18] MEDS: Pregabalin 25 MG Cap PO SCH (20:55)
[2023-10-18] MEDS: Losartan 50 MG Tab PO SCH (20:57)
[2023-10-18] MEDS ORDERED: Non-Formulary Medication 1 Each (Spironolactone [Aldactone] 50 MG Tablet) PO SCH (21:00)
[2023-10-18] MEDS ORDERED: atorvaSTATin 40 MG Tab PO SCH (21:00)
[2023-10-18] MEDS ORDERED: glipiZIDE 10 MG Tab.ER PO SCH (21:00)
[2023-10-18] MEDS ORDERED: Metoprolol Succinate 25 MG Tab.ER PO SCH (21:00)
[2023-10-18] MEDS ORDERED: Montelukast 10 MG Tab PO SCH (21:00)
[2023-10-18] MEDS ORDERED: predniSONE 5 MG Tab PO SCH (21:00)
[2023-10-18] MEDS ORDERED: Topiramate 50 MG Tab PO SCH (21:00)
[2023-10-18] MEDS ORDERED: DULoxetine 60 MG Cap PO SCH (21:00)
[2023-10-19] MEDS: Alendronate 70 MG Tab PO SCH (06:18)
[2023-10-19] MEDS ORDERED: Pantoprazole 40 MG Tab.CR PO SCH (07:00)
[2023-10-19] MEDS: Multivitamin Tab PO SCH (08:03)
[2023-10-19] MEDS: Aspirin 81 MG Tab.EC PO SCH (08:04)
[2023-10-19] MEDS: Calcium Carbonate/Vitamin D3 1250 MG-5 MCG Tab PO SCH (08:06)
[2023-10-19] MEDS: Polyethylene Glycol 3350 Powder 17 GM Packet PO SCH (08:09)
[2023-10-19] MEDS ORDERED: Lidocaine 4% 1 each Patch TOP SCH (09:00)
[2023-10-19] MEDS ORDERED: Meloxicam 7.5 MG Tab PO SCH (09:00)
[2023-10-19] MEDS ORDERED: Furosemide 40 MG Tab PO SCH (09:00)
[2023-10-19] MEDS ORDERED: LEFLUNOMIDE 10 MG PO SCH (09:00)
[2023-10-19] MEDS: tiZANidine 4 MG Tab PO PRN (11:56)
[2023-10-19] MEDS: Enoxaparin 30 MG/0.3 ML Syringe SUBCUT SCH (20:29)
[2023-10-21 06:38] LABS: HEMATOCRIT 32.6 % (33.0-47.0); HEMOGLOBIN 10.3 g/dL (12.0-16.0); MEAN CORPUSCULAR HEMOGLOBIN 30.2 pg (26.0-32.0); MEAN CORPUSCULAR HGB CONC 31.6 g/dL (32.0-36.0); MEAN CORPUSCULAR VOLUME 95.6 fL (78.0-93.0); RED BLOOD CELL COUNT 3.41 x10^6/uL (4.00-5.50)
[2023-10-24 07:46] LABS: HEMATOCRIT 30.9 % (33.0-47.0); HEMOGLOBIN 9.8 g/dL (12.0-16.0); MEAN CORPUSCULAR HEMOGLOBIN 30.1 pg (26.0-32.0); MEAN CORPUSCULAR HGB CONC 31.7 g/dL (32.0-36.0); MEAN CORPUSCULAR VOLUME 94.8 fL (78.0-93.0); RED BLOOD CELL COUNT 3.26 x10^6/uL (4.00-5.50); WHITE BLOOD CELL COUNT,WBC 6.1 x10^3/uL (4.0-10.0)
[2023-10-27 07:16] LABS: HEMATOCRIT 28.9 % (33.0-47.0); HEMOGLOBIN 9.3 g/dL (12.0-16.0); MEAN CORPUSCULAR HEMOGLOBIN 30.3 pg (26.0-32.0); MEAN CORPUSCULAR HGB CONC 32.2 g/dL (32.0-36.0); MEAN CORPUSCULAR VOLUME 94.1 fL (78.0-93.0); RED BLOOD CELL COUNT 3.07 x10^6/uL (4.00-5.50); WHITE BLOOD CELL COUNT,WBC 6.2 x10^3/uL (4.0-10.0)
[2023-10-30 06:55] LABS: HEMATOCRIT 29.5 % (33.0-47.0); HEMOGLOBIN 9.2 g/dL (12.0-16.0); MEAN CORPUSCULAR HEMOGLOBIN 29.6 pg (26.0-32.0); MEAN CORPUSCULAR HGB CONC 31.2 g/dL (32.0-36.0); MEAN CORPUSCULAR VOLUME 94.9 fL (78.0-93.0); RED BLOOD CELL COUNT 3.11 x10^6/uL (4.00-5.50)
[2023-10-30] MEDS: tiZANidine 4 MG Tab PO SCH ×2 (13:13→18:34)
[2023-11-02 06:51] LABS: HEMATOCRIT 27.7 % (33.0-47.0); HEMOGLOBIN 8.8 g/dL (12.0-16.0); MEAN CORPUSCULAR HEMOGLOBIN 29.6 pg (26.0-32.0); MEAN CORPUSCULAR HGB CONC 31.8 g/dL (32.0-36.0); MEAN CORPUSCULAR VOLUME 93.3 fL (78.0-93.0); RED BLOOD CELL COUNT 2.97 x10^6/uL (4.00-5.50)
[2023-11-03] MEDS: Acetaminophen 325 MG Tab PO SCH (17:01)
[2023-11-06 09:40] VITALS: BP 115/56; PULSE 71
== END 2023-11-06 10:30 | DRG 948 ==
LOC: VM.MS 09:57
PROVIDERS: ADMIT Family Medicine; ATTEND Family Medicine
DX: R53.1 Weakness (principal); I50.32 Chronic diastolic (congestive) heart failure; J96.11 Chronic respiratory failure with hypoxia; M54.9 Dorsalgia, unspecified; M79.10 Myalgia, unspecified site; H91.90 Unspecified hearing loss, unspecified ear; E78.00 Pure hypercholesterolemia, unspecified; I11.0 Hypertensive heart disease with heart failure; G47.30 Sleep apnea, unspecified; G89.29 Other chronic pain; M19.90 Unspecified osteoarthritis, unspecified site; E78.5 Hyperlipidemia, unspecified; E11.9 Type 2 diabetes mellitus without complications; F41.9 Anxiety disorder, unspecified; F32.A Depression, unspecified; F43.10 Post-traumatic stress disorder, unspecified; D64.9 Anemia, unspecified; Z98.890 Other specified postprocedural states; Z79.82 Long term (current) use of aspirin; Z79.899 Other long term (current) drug therapy; Z90.49 Acquired absence of other specified parts of digestive tract; Z90.710 Acquired absence of both cervix and uterus
CPT/HCPCS: 36415; 36600; 70450; 80048; 80053; 82803; 82947; 83735; 84145; 85025; 85027; 94760; 95851-GO; 97110-GP; 97116-GP; 97165-GO; 97530-GP; 97535-GO; A9270-GY; G0283-GP; J1650; J2060; J2310; J3490; J7030; J7512

== ENCOUNTER 2024-01-01 10:46 | Emergency (ER) | payer OTHER, MEDICARE ==
[2024-01-01] MEDS: Sodium Chloride 0.9% 1,000 ML IV ONE (11:03)
[2024-01-01 11:06] LABS: BASOPHILS PERCENT AUTO 0.1 % (0.2-1.2); EOSINOPHILS ABSOLUTE AUTO 0.1 x10^3/uL (0.0-0.5); HEMATOCRIT 33.2 % (33.0-47.0); HEMOGLOBIN 10.8 g/dL (12.0-16.0); IMMATURE GRAN ABSOLUTE AUTO 0.02 x10^3/uL (0.00-0.07); LYMPHOCYTES ABSOLUTE AUTO 0.8 x10^3/uL (1.0-4.8); LYMPHOCYTES PERCENT AUTO 9.1 % (25.0-50.0); MEAN CORPUSCULAR HEMOGLOBIN 28.3 pg (26.0-32.0); MEAN CORPUSCULAR HGB CONC 32.5 g/dL (32.0-36.0); MEAN CORPUSCULAR VOLUME 87.1 fL (78.0-93.0); MONOCYTES ABSOLUTE AUTO 0.7 x10^3/uL (0.0-0.8); NEUTROPHILS ABSOLUTE AUTO 6.8 x10^3/uL (1.8-7.7); NEUTROPHILS PERCENT AUTO 81.6 % (50.0-80.0); PLATELET COUNT,PLT 311 x10^3/uL (130-400); RED BLOOD CELL COUNT 3.81 x10^6/uL (4.00-5.50); WHITE BLOOD CELL COUNT,WBC 8.4 x10^3/uL (4.0-10.0)
[2024-01-01 11:20] LABS: BLOOD UREA NITROGEN,BUN 22 mg/dL (7-18); CARBON DIOXIDE,CO2 23 mmol/L (21-32); CHLORIDE,CL 100 mmol/L (98-107); GLUCOSE RANDOM 282 mg/dL (70-99); POTASSIUM,K 3.3 mmol/L (3.5-5.1); SODIUM,NA 136 mmol/L (136-145)
[2024-01-01 11:21] LABS: ANION GAP 16.3 mmol/L (5-15); ESTIMATED GFR 63 mL/min (>=60)
[2024-01-01 12:26] VITALS: BP 116/60; PULSE 92
== END 2024-01-01 12:30 ==
LOC: VM.ED 10:46
DX: I95.9 Hypotension, unspecified (principal); I11.0 Hypertensive heart disease with heart failure; I50.9 Heart failure, unspecified; E11.649 Type 2 diabetes mellitus with hypoglycemia without coma; Z88.6 Allergy status to analgesic agent; Z79.899 Other long term (current) drug therapy; Z91.011 Allergy to milk products; Z88.8 Allergy status to other drugs, medicaments and biological substances; Z79.82 Long term (current) use of aspirin; Z79.51 Long term (current) use of inhaled steroids; Z79.84 Long term (current) use of oral hypoglycemic drugs; Z86.73 Personal history of transient ischemic attack (TIA), and cerebral infarction without residual deficits; Z86.16 Personal history of COVID-19; Z90.49 Acquired absence of other specified parts of digestive tract
CPT/HCPCS: 36415; 80048; 82947; 85025; 96360; 99285; J7030

== ENCOUNTER 2024-08-26 08:35 | Day surgery (SDC) | payer OTHER ==
[2024-08-26] MEDS: Lactated Ringers 1,000 ML IV SCH (08:52)
[2024-08-26] MEDS ORDERED: Propofol 200 MG/20 ML SDV ONE (09:26)
[2024-08-26] MEDS ORDERED: fentaNYL 100 MCG/2 ML SDV ONE (09:55)
[2024-08-26] MEDS ORDERED: Midazolam 1 MG/ML 2 ML SDV ONE (09:55)
[2024-08-26 10:46] VITALS: BP 146/61; PULSE 60
== END 2024-08-26 11:45 | disposition home or self-care (01) ==
LOC: VM.SDS 08:35
PROVIDERS: ATTEND Student in an Organized Health Care Education/Training Program
DX: K29.50 Unspecified chronic gastritis without bleeding (principal); K29.80 Duodenitis without bleeding; E11.22 Type 2 diabetes mellitus with diabetic chronic kidney disease; I13.0 Hypertensive heart and chronic kidney disease with heart failure and stage 1 through stage 4 chronic kidney disease, or unspecified chronic kidney disease; N18.30 Chronic kidney disease, stage 3 unspecified; I50.9 Heart failure, unspecified; E11.51 Type 2 diabetes mellitus with diabetic peripheral angiopathy without gangrene; Z79.85 Long-term (current) use of injectable non-insulin antidiabetic drugs; Z79.899 Other long term (current) drug therapy; Z88.8 Allergy status to other drugs, medicaments and biological substances; Z91.011 Allergy to milk products
CPT/HCPCS: 00731; 82947; J2250; J2704; J3010; J7120

== ENCOUNTER 2024-11-25 06:25 | Day surgery (SDC) | payer OTHER ==
[2024-11-25] MEDS: Lactated Ringers 1,000 ML IV SCH (06:49)
[2024-11-25] MEDS ORDERED: fentaNYL 100 MCG/2 ML SDV ONE (07:37)
[2024-11-25] MEDS ORDERED: Propofol 200 MG/20 ML SDV ONE (07:37)
[2024-11-25] MEDS ORDERED: Sodium Chloride 0.9% 10 ML Syringe FLUSH PRN (09:16)
[2024-11-25 11:07] VITALS: BP 162/72; PULSE 64
== END 2024-11-25 11:14 | disposition home or self-care (01) ==
LOC: VM.SDS 06:25
PROVIDERS: ATTEND Student in an Organized Health Care Education/Training Program
DX: K20.90 Esophagitis, unspecified without bleeding (principal); K29.70 Gastritis, unspecified, without bleeding; I13.0 Hypertensive heart and chronic kidney disease with heart failure and stage 1 through stage 4 chronic kidney disease, or unspecified chronic kidney disease; E11.22 Type 2 diabetes mellitus with diabetic chronic kidney disease; I50.9 Heart failure, unspecified; N18.30 Chronic kidney disease, stage 3 unspecified; Z79.4 Long term (current) use of insulin; Z79.899 Other long term (current) drug therapy
CPT/HCPCS: 00731; 82947; J2704; J3010; J7120

== ENCOUNTER 2025-06-13 09:58 | Emergency (ER) | payer OTHER ==
[2025-06-13] MEDS ORDERED: Iopamidol 612 MG/ML 100 ML Bottle IVPUSH ONE (10:30)
[2025-06-13 10:43] LABS: BASOPHILS ABSOLUTE AUTO 0.0 x10^3/uL (0.0-0.2); BASOPHILS PERCENT AUTO 0.4 % (0.2-1.2); EOSINOPHILS ABSOLUTE AUTO 0.1 x10^3/uL (0.0-0.5); EOSINOPHILS PERCENT AUTO 0.7 % (0.0-4.0); IMMATURE GRAN ABSOLUTE AUTO 0.01 x10^3/uL (0.00-0.07); IMMATURE GRAN PERCENT AUTO 0.10 % (0.00-0.43); LYMPHOCYTES ABSOLUTE AUTO 0.4 x10^3/uL (1.0-4.8); LYMPHOCYTES PERCENT AUTO 5.5 % (25.0-50.0); MONOCYTES ABSOLUTE AUTO 0.9 x10^3/uL (0.0-0.8); MONOCYTES PERCENT AUTO 12.4 % (2.0-11.0); NEUTROPHILS ABSOLUTE AUTO 6.2 x10^3/uL (1.8-7.7); NEUTROPHILS PERCENT AUTO 80.9 % (50.0-80.0); PLATELET COUNT,PLT 345 x10^3/uL (130-400); RED BLOOD CELL COUNT 3.30 x10^6/uL (4.00-5.50)
[2025-06-13 10:56] LABS: WHITE BLOOD CELL COUNT,WBC 7.6 x10^3/uL (4.0-10.0)
[2025-06-13 11:05] LABS: A/G RATIO 0.94; ALANINE AMINOTRANSFERASE,ALT 26.0 U/L (14-59); ASPARTATE AMNIOTRANSFERASE,AST 31.0 U/L (15-37); BILIRUBIN TOTAL 0.8 mg/dL (0.2-1.0); BLOOD UREA NITROGEN,BUN 16.0 mg/dL (7-18); CARBON DIOXIDE,CO2 32.0 mmol/L (21-32); CHLORIDE,CL 99.0 mmol/L (98-107); CREATININE 0.9 mg/dL (0.55-1.02); EST CRCL DRUG DOSING (CG) 43.57 mL/min; ESTIMATED GFR 70.0 mL/min (>=60); GLUCOSE RANDOM 131.0 mg/dL (70-99); POTASSIUM,K 3.8 mmol/L (3.5-5.1); PROTEIN TOTAL,TP 6.6 g/dL (6.4-8.2); SODIUM,NA 141.0 mmol/L (136-145)
[2025-06-13] MEDS: Ondansetron 4 MG/2 ML SDV IVPUSH ONE (12:03)
[2025-06-13 13:02] VITALS: BP 127/87; PULSE 94
== END 2025-06-13 12:14 ==
LOC: VM.ED 09:58
DX: R10.84 Generalized abdominal pain (principal); I11.0 Hypertensive heart disease with heart failure; I50.9 Heart failure, unspecified; E78.00 Pure hypercholesterolemia, unspecified; Z88.6 Allergy status to analgesic agent; Z91.0110 Allergy to milk products, unspecified; Z88.8 Allergy status to other drugs, medicaments and biological substances; Z79.82 Long term (current) use of aspirin; Z79.899 Other long term (current) drug therapy
CPT/HCPCS: 36415; 74177; 80053; 83690; 85025; 96374; 99284; 99284-25; J2405

== ENCOUNTER 2025-06-13 23:06 | Inpatient (IN) | payer OTHER, MEDICARE ==
[2025-06-13 23:34] LABS: BASOPHILS ABSOLUTE AUTO 0.0 x10^3/uL (0.0-0.2); BASOPHILS PERCENT AUTO 0.2 % (0.2-1.2); EOSINOPHILS ABSOLUTE AUTO 0.1 x10^3/uL (0.0-0.5); EOSINOPHILS PERCENT AUTO 1.3 % (0.0-4.0); IMMATURE GRAN ABSOLUTE AUTO 0.03 x10^3/uL (0.00-0.07); IMMATURE GRAN PERCENT AUTO 0.30 % (0.00-0.43); LYMPHOCYTES ABSOLUTE AUTO 0.7 x10^3/uL (1.0-4.8); LYMPHOCYTES PERCENT AUTO 7.7 % (25.0-50.0); MONOCYTES ABSOLUTE AUTO 0.9 x10^3/uL (0.0-0.8); MONOCYTES PERCENT AUTO 10.0 % (2.0-11.0); NEUTROPHILS ABSOLUTE AUTO 7.6 x10^3/uL (1.8-7.7); NEUTROPHILS PERCENT AUTO 80.5 % (50.0-80.0); PLATELET COUNT,PLT 360 x10^3/uL (130-400); RED BLOOD CELL COUNT 3.50 x10^6/uL (4.00-5.50); WHITE BLOOD CELL COUNT,WBC 9.4 x10^3/uL (4.0-10.0)
[2025-06-13 23:47] LABS: A/G RATIO 0.97; ALANINE AMINOTRANSFERASE,ALT 33 U/L (14-59); ASPARTATE AMNIOTRANSFERASE,AST 48 U/L (15-37); BILIRUBIN TOTAL 0.8 mg/dL (0.2-1.0); BLOOD UREA NITROGEN,BUN 16 mg/dL (7-18); CARBON DIOXIDE,CO2 32 mmol/L (21-32); CHLORIDE,CL 97 mmol/L (98-107); CREATININE 1.0 mg/dL (0.55-1.02); ESTIMATED GFR 62 mL/min (>=60); PROTEIN TOTAL,TP 6.9 g/dL (6.4-8.2); SODIUM,NA 139 mmol/L (136-145)
[2025-06-13 23:49] LABS: ETHANOL BLOOD MEDICAL < 3 mg/dL (0-3)
[2025-06-13 23:53] LABS: GLUCOSE RANDOM 34 mg/dL (70-99); POTASSIUM,K 2.8 mmol/L (3.5-5.1)
[2025-06-13 23:54] LABS: APPEARANCE,URINE CLEAR (CLEAR); GLUCOSE,URINE NEGATIVE (NEGATIVE); OCCULT BLOOD,URINE TRACE-INTACT (NEGATIVE)
[2025-06-13] MEDS: 50% Dextrose in Water 50 ML Syringe IV PRN (23:58)
[2025-06-13 23:59] LABS: SQUAMOUS EPITHELIAL CELLS,UR FEW /HPF (NOT SEEN)
[2025-06-14] MEDS: Potassium Chloride 20 MEQ Tab.ER PO ONE (00:49)
[2025-06-14 04:00] LABS: BASE EXCESS ARTERIAL,POC 3 mmol/L ((-2)-3); HCO3 ARTERIAL,POC 24.2 mmol/L (21-28); O2 SATURATION ARTERIAL,POC 99.9 % (94-98); PCO2 ARTERIAL,POC 23 mmHg (35-48); PH ARTERIAL,POC 7.64 pH (7.35-7.45); PO2 ARTERIAL,POC 213 mmHg (83-108); TCO2 ARTERIAL,POC 22.6 mmol/L (22-29)
[2025-06-14] MEDS ORDERED: Albuterol HFA 18 Gm Inhaler INH PRN (06:54)
[2025-06-14 07:54] LABS: BLOOD UREA NITROGEN,BUN 12.0 mg/dL (7-18); CARBON DIOXIDE,CO2 32.0 mmol/L (21-32); CHLORIDE,CL 100.0 mmol/L (98-107); CREATININE 0.9 mg/dL (0.55-1.02); EST CRCL DRUG DOSING (CG) 43.57 mL/min; GLUCOSE RANDOM 109.0 mg/dL (70-99); POTASSIUM,K 4.3 mmol/L (3.5-5.1); SODIUM,NA 138.0 mmol/L (136-145)
[2025-06-14 07:55] LABS: ESTIMATED GFR 70.0 mL/min (>=60)
[2025-06-14] MEDS: Calcium Carbonate/Vitamin D3 1250 MG-5 MCG Tab PO SCH (09:31)
[2025-06-14] MEDS: Ondansetron 4 MG Tab.DIS PO SCH (09:31)
[2025-06-14] MEDS: Potassium Chloride 20 MEQ Tab.ER PO SCH (09:35)
[2025-06-14] MEDS: Sennosides/Docusate Sodium 50-8.6 MG Tab PO SCH (09:39)
[2025-06-14] MEDS: Bacitracin/Polymyxin B Oint 0.9 GM U/D Pkt TOP SCH (09:39)
[2025-06-14] MEDS: Pantoprazole 20 MG Tab, Delayed Release PO SCH (09:52)
[2025-06-15 06:52] LABS: BASOPHILS ABSOLUTE AUTO 0.1 x10^3/uL (0.0-0.2); BASOPHILS PERCENT AUTO 0.6 % (0.2-1.2); EOSINOPHILS ABSOLUTE AUTO 0.2 x10^3/uL (0.0-0.5); EOSINOPHILS PERCENT AUTO 2.0 % (0.0-4.0); IMMATURE GRAN ABSOLUTE AUTO 0.02 x10^3/uL (0.00-0.07); IMMATURE GRAN PERCENT AUTO 0.20 % (0.00-0.43); LYMPHOCYTES ABSOLUTE AUTO 1.1 x10^3/uL (1.0-4.8); LYMPHOCYTES PERCENT AUTO 12.7 % (25.0-50.0); MONOCYTES ABSOLUTE AUTO 1.2 x10^3/uL (0.0-0.8); MONOCYTES PERCENT AUTO 14.1 % (2.0-11.0); NEUTROPHILS ABSOLUTE AUTO 5.9 x10^3/uL (1.8-7.7); NEUTROPHILS PERCENT AUTO 70.4 % (50.0-80.0); PLATELET COUNT,PLT 366 x10^3/uL (130-400); RED BLOOD CELL COUNT 3.27 x10^6/uL (4.00-5.50); WHITE BLOOD CELL COUNT,WBC 8.4 x10^3/uL (4.0-10.0)
[2025-06-15 07:09] LABS: A/G RATIO 0.84; ALANINE AMINOTRANSFERASE,ALT 30.0 U/L (14-59); ASPARTATE AMNIOTRANSFERASE,AST 28.0 U/L (15-37); BILIRUBIN TOTAL 0.4 mg/dL (0.2-1.0); BLOOD UREA NITROGEN,BUN 12.0 mg/dL (7-18); CARBON DIOXIDE,CO2 30.0 mmol/L (21-32); CHLORIDE,CL 99.0 mmol/L (98-107); CREATININE 1.1 mg/dL (0.55-1.02); EST CRCL DRUG DOSING (CG) 35.65 mL/min; GLUCOSE RANDOM 114.0 mg/dL (70-99); POTASSIUM,K 3.7 mmol/L (3.5-5.1); PROTEIN TOTAL,TP 5.9 g/dL (6.4-8.2); SODIUM,NA 136.0 mmol/L (136-145)
[2025-06-15 07:10] LABS: ESTIMATED GFR 55.0 mL/min (>=60)
[2025-06-15 16:35] LABS: HCO3 VENOUS,POC 30 mmol/L (22-29); O2 SATURATION VENOUS,POC 69 %; PCO2 VENOUS,POC 51 mmHg (41-51); PH VENOUS,POC 7.38 pH (7.32-7.43); PO2 VENOUS,POC 38 mmHg
[2025-06-16 06:44] LABS: BASOPHILS ABSOLUTE AUTO 0.0 x10^3/uL (0.0-0.2); BASOPHILS PERCENT AUTO 0.5 % (0.2-1.2); EOSINOPHILS ABSOLUTE AUTO 0.1 x10^3/uL (0.0-0.5); EOSINOPHILS PERCENT AUTO 1.1 % (0.0-4.0); IMMATURE GRAN ABSOLUTE AUTO 0.01 x10^3/uL (0.00-0.07); IMMATURE GRAN PERCENT AUTO 0.10 % (0.00-0.43); LYMPHOCYTES ABSOLUTE AUTO 1.1 x10^3/uL (1.0-4.8); LYMPHOCYTES PERCENT AUTO 12.8 % (25.0-50.0); MONOCYTES ABSOLUTE AUTO 1.2 x10^3/uL (0.0-0.8); MONOCYTES PERCENT AUTO 13.1 % (2.0-11.0); NEUTROPHILS ABSOLUTE AUTO 6.4 x10^3/uL (1.8-7.7); NEUTROPHILS PERCENT AUTO 72.4 % (50.0-80.0); PLATELET COUNT,PLT 384 x10^3/uL (130-400); RED BLOOD CELL COUNT 3.17 x10^6/uL (4.00-5.50); WHITE BLOOD CELL COUNT,WBC 8.8 x10^3/uL (4.0-10.0)
[2025-06-16 07:08] LABS: A/G RATIO 0.88; ALANINE AMINOTRANSFERASE,ALT 25.0 U/L (14-59); ASPARTATE AMNIOTRANSFERASE,AST 22.0 U/L (15-37); BILIRUBIN TOTAL 0.4 mg/dL (0.2-1.0); BLOOD UREA NITROGEN,BUN 12.0 mg/dL (7-18); CARBON DIOXIDE,CO2 31.0 mmol/L (21-32); CHLORIDE,CL 100.0 mmol/L (98-107); CREATININE 0.9 mg/dL (0.55-1.02); EST CRCL DRUG DOSING (CG) 43.57 mL/min; GLUCOSE RANDOM 168.0 mg/dL (70-99); POTASSIUM,K 3.8 mmol/L (3.5-5.1); PROTEIN TOTAL,TP 6.0 g/dL (6.4-8.2); SODIUM,NA 138.0 mmol/L (136-145)
[2025-06-16 07:09] LABS: ESTIMATED GFR 70.0 mL/min (>=60)
[2025-06-16] MEDS: Bacitracin Oint 1 GM U/D Packet TOP SCH (12:17)
[2025-06-17 08:08] LABS: BASOPHILS ABSOLUTE AUTO 0.1 x10^3/uL (0.0-0.2); BASOPHILS PERCENT AUTO 0.7 % (0.2-1.2); EOSINOPHILS ABSOLUTE AUTO 0.1 x10^3/uL (0.0-0.5); EOSINOPHILS PERCENT AUTO 1.4 % (0.0-4.0); IMMATURE GRAN ABSOLUTE AUTO 0.01 x10^3/uL (0.00-0.07); IMMATURE GRAN PERCENT AUTO 0.10 % (0.00-0.43); LYMPHOCYTES ABSOLUTE AUTO 1.0 x10^3/uL (1.0-4.8); LYMPHOCYTES PERCENT AUTO 12.4 % (25.0-50.0); MONOCYTES ABSOLUTE AUTO 0.8 x10^3/uL (0.0-0.8); MONOCYTES PERCENT AUTO 10.3 % (2.0-11.0); NEUTROPHILS ABSOLUTE AUTO 6.1 x10^3/uL (1.8-7.7); NEUTROPHILS PERCENT AUTO 75.1 % (50.0-80.0); PLATELET COUNT,PLT 459 x10^3/uL (130-400); RED BLOOD CELL COUNT 3.27 x10^6/uL (4.00-5.50); WHITE BLOOD CELL COUNT,WBC 8.1 x10^3/uL (4.0-10.0)
[2025-06-17 08:35] LABS: A/G RATIO 0.88; ALANINE AMINOTRANSFERASE,ALT 26.0 U/L (14-59); ASPARTATE AMNIOTRANSFERASE,AST 17.0 U/L (15-37); BILIRUBIN TOTAL 0.5 mg/dL (0.2-1.0); BLOOD UREA NITROGEN,BUN 13.0 mg/dL (7-18); CARBON DIOXIDE,CO2 33.0 mmol/L (21-32); CHLORIDE,CL 98.0 mmol/L (98-107); CREATININE 1.0 mg/dL (0.55-1.02); EST CRCL DRUG DOSING (CG) 39.21 mL/min; ESTIMATED GFR 62.0 mL/min (>=60); GLUCOSE RANDOM 102.0 mg/dL (70-99); POTASSIUM,K 4.0 mmol/L (3.5-5.1); PROTEIN TOTAL,TP 6.4 g/dL (6.4-8.2); SODIUM,NA 139.0 mmol/L (136-145)
[2025-06-17 14:05] VITALS: BP 117/59; PULSE 86
== END 2025-06-17 15:15 | disposition swing bed (61) | DRG 637 ==
LOC: SUPCPDRO 23:06 → VM.ED 23:06 → VM.MS 06-14 01:59 → UNDOADMOB 06-14 01:59 → OBSVTOIN 06-14 01:59 → INTOOBSV 06-14 01:59 → OBSVTOIN 06-14 02:53 → VM.MS 06-14 02:53
PROVIDERS: ADMIT Internal Medicine; ATTEND Internal Medicine
DX: E11.649 Type 2 diabetes mellitus with hypoglycemia without coma (principal); G93.41 Metabolic encephalopathy; I13.0 Hypertensive heart and chronic kidney disease with heart failure and stage 1 through stage 4 chronic kidney disease, or unspecified chronic kidney disease; I50.32 Chronic diastolic (congestive) heart failure; J96.11 Chronic respiratory failure with hypoxia; J84.10 Pulmonary fibrosis, unspecified; M06.9 Rheumatoid arthritis, unspecified; E78.5 Hyperlipidemia, unspecified; F32.A Depression, unspecified; G89.29 Other chronic pain; I25.10 Atherosclerotic heart disease of native coronary artery without angina pectoris; M19.90 Unspecified osteoarthritis, unspecified site; M54.9 Dorsalgia, unspecified; G47.33 Obstructive sleep apnea (adult) (pediatric); F41.9 Anxiety disorder, unspecified; D64.9 Anemia, unspecified; K59.00 Constipation, unspecified; M85.80 Other specified disorders of bone density and structure, unspecified site; J30.9 Allergic rhinitis, unspecified; E11.22 Type 2 diabetes mellitus with diabetic chronic kidney disease; N18.31 Chronic kidney disease, stage 3a; E87.6 Hypokalemia; Z88.8 Allergy status to other drugs, medicaments and biological substances; Z79.82 Long term (current) use of aspirin; Z79.52 Long term (current) use of systemic steroids; Z86.73 Personal history of transient ischemic attack (TIA), and cerebral infarction without residual deficits; Z86.16 Personal history of COVID-19; Z98.890 Other specified postprocedural states; Z90.49 Acquired absence of other specified parts of digestive tract; Z98.1 Arthrodesis status; Z90.710 Acquired absence of both cervix and uterus
CPT/HCPCS: 36415; 36600; 70450; 74177; 80048; 80053; 80307; 81001; 82140; 82533; 82803; 82947; 83605; 83690; 83735; 84484; 85025; 93005; 93010; 96365; 96374; 96375; 99223-GT; 99239-GT; 99284; 99284-25; 99285-25; A9270-GY; J1650; J2405; J3480; J7512; Q9967

== ENCOUNTER 2025-06-17 14:15 | Inpatient (IN) | payer OTHER, MEDICARE ==
[2025-06-17] MEDS ORDERED: 50% Dextrose in Water 50 ML Syringe IV PRN (14:27)
[2025-06-17] MEDS ORDERED: Albuterol HFA 18 Gm Inhaler INH PRN (14:27)
[2025-06-17] MEDS ORDERED: 50% Dextrose in Water 50 ML Syringe IVPUSH PRN (14:27)
[2025-06-17] MEDS: Pantoprazole 20 MG Tab, Delayed Release PO SCH (17:19)
[2025-06-17] MEDS: Ondansetron 4 MG Tab.DIS PO SCH (17:20)
[2025-06-17] MEDS: Calcium Carbonate/Vitamin D3 1250 MG-5 MCG Tab PO SCH (18:12)
[2025-06-17] MEDS: Bacitracin Oint 1 GM U/D Packet TOP SCH (20:32)
[2025-06-17] MEDS: Sennosides/Docusate Sodium 50-8.6 MG Tab PO SCH (20:35)
[2025-06-18 08:14] LABS: PLATELET COUNT,PLT 478.0 x10^3/uL (130-400); RED BLOOD CELL COUNT 3.33 x10^6/uL (4.00-5.50); WHITE BLOOD CELL COUNT,WBC 8.2 x10^3/uL (4.0-10.0)
[2025-06-18] MEDS: Potassium Chloride 20 MEQ Tab.ER PO SCH (10:24)
[2025-06-21 07:11] LABS: PLATELET COUNT,PLT 485.0 x10^3/uL (130-400); RED BLOOD CELL COUNT 3.46 x10^6/uL (4.00-5.50); WHITE BLOOD CELL COUNT,WBC 6.4 x10^3/uL (4.0-10.0)
[2025-06-22] MEDS: Insulin Regular, Human 100 Units/ML 10 ML Vial SUBCUT SCH (22:04)
[2025-06-23] MEDS ORDERED: Insulin Regular, Human 100 Units/ML 10 ML Vial SUBCUT SCH (07:00)
[2025-06-23 12:28] VITALS: BP 123/50; PULSE 82
== END 2025-06-23 12:25 | disposition home health service (06) | DRG 947 ==
LOC: VM.MS 14:27
PROVIDERS: ADMIT Internal Medicine; ATTEND Family Medicine
DX: R53.81 Other malaise (principal); G93.41 Metabolic encephalopathy; J96.11 Chronic respiratory failure with hypoxia; E11.649 Type 2 diabetes mellitus with hypoglycemia without coma; J84.10 Pulmonary fibrosis, unspecified; E78.00 Pure hypercholesterolemia, unspecified; H91.90 Unspecified hearing loss, unspecified ear; I50.9 Heart failure, unspecified; I11.0 Hypertensive heart disease with heart failure; G47.30 Sleep apnea, unspecified; K58.9 Irritable bowel syndrome, unspecified; M06.9 Rheumatoid arthritis, unspecified; G43.909 Migraine, unspecified, not intractable, without status migrainosus; G25.81 Restless legs syndrome; F41.9 Anxiety disorder, unspecified; F32.A Depression, unspecified; E11.51 Type 2 diabetes mellitus with diabetic peripheral angiopathy without gangrene; I27.20 Pulmonary hypertension, unspecified; D53.9 Nutritional anemia, unspecified; F43.10 Post-traumatic stress disorder, unspecified; Z86.16 Personal history of COVID-19; Z98.1 Arthrodesis status; Z79.82 Long term (current) use of aspirin; Z79.899 Other long term (current) drug therapy; Z79.51 Long term (current) use of inhaled steroids; Z79.02 Long term (current) use of antithrombotics/antiplatelets; Z79.891 Long term (current) use of opiate analgesic; Z88.6 Allergy status to analgesic agent; Z88.8 Allergy status to other drugs, medicaments and biological substances; Z91.0110 Allergy to milk products, unspecified; Z86.73 Personal history of transient ischemic attack (TIA), and cerebral infarction without residual deficits; Z98.890 Other specified postprocedural states; Z95.5 Presence of coronary angioplasty implant and graft; Z90.49 Acquired absence of other specified parts of digestive tract; Z90.710 Acquired absence of both cervix and uterus; Z87.891 Personal history of nicotine dependence
CPT/HCPCS: 36415; 82947; 83036; 85027; 94760; 97110-GP; 97116-GP; 97161-GP; 97165-GO; 97530-GP; 97535-GO; A9270-GY; J1650; J1815-GY; J7512